=== PATIENT | female | born 1950 | race Caucasian/White ===

== ENCOUNTER 2022-05-05 13:20 | Emergency (ER) | payer MEDICARE, BC, SELFPAY ==
[2022-05-05 13:23] VITALS: BP 137/83; PULSE 88; RESP 18; TEMP 36; O2SAT 99; BMI 25.1
--- NOTE | 2022-05-05 13:45 | CRLHL7_ITS ---
For Patients: As a result of the Cures Act, medical imaging exams and procedure reports are released immediately into your electronic medical record. You may view this report before your referring provider. If you have questions, please contact your health care provider. Indication: Fell, right knee pain. Technique: Right knee 4 views. Comparison: None. Findings: No acute fracture or dislocation. The patella is normally aligned. Right total knee arthroplasty with patellar resurfacing. Hardware appears intact without radiographic evidence of loosening. No knee joint effusion. Soft tissues are unremarkable. Impression: 1. No acute findings. 2. Intact right TKA without evidence of hardware failure. Dictated by Michaela Velasco MD @ 05/05/2022 2:52:25 PM (Electronically Signed)
--- NOTE | 2022-05-05 13:46 | ED.GENADULT ---
HPI - General Adult General Chief complaint: Lower Extremity Swelling Stated complaint: Fall Repeat Knee Injury Time Seen by Provider: 05/05/22 13:41 History of Present Illness HPI narrative: This 71-year-old female comes in because of a fall that occurred just prior to arrival. She was carrying some items at a store and turned around a corner and did not see something on the floor which caused her to fall. She landed on her right knee which has been replaced in the past. She was protecting her left leg as she had a more recent hip replacement. She did not lose consciousness. She was able to get up and ambulate. Related Data Home Medications Medication Instructions Recorded Confirmed acetaminophen 500 mg tablet 1,000 mg PO PRN 04/26/22 04/26/22 amlodipine 2.5 mg tablet 2.5 mg PO DAILY 04/26/22 05/05/22 ascorbic acid (vitamin C) 1,000 mg 500 mg PO DAILY 04/26/22 05/05/22 tablet aspirin 81 mg tablet,delayed 81 mg PO DAILY 04/26/22 05/05/22 release cholecalciferol (vitamin D3) 25 1,000 unit PO DAILY 04/26/22 05/05/22 mcg (1,000 unit) tablet clopidogrel 75 mg tablet 75 mg PO DAILY 04/26/22 05/05/22 lqxtgm-vpyustdm-orvsmuw cap PO 04/26/22 04/26/22 36,000-114,000-180,000 unit capsule,delay rel multivitamin (Multiple Vitamins 1 tab PO QAM 04/26/22 05/05/22 tablet) omega 0-kfn-hdd-fish oil 100 cap PO 04/26/22 04/26/22 mg-160 mg-1,000 mg capsule (Fish Oil) pantoprazole 40 mg tablet,delayed mg PO DAILY 04/26/22 04/26/22 release rosuvastatin 10 mg tablet 10 mg PO DAILY 04/26/22 05/05/22 sennosides 8.6 mg tablet 4.3 mg PO PRN 04/26/22 04/26/22 sodium chloride 1,000 mg soluble 1 mg PO BID 04/26/22 04/26/22 tablet hydroxyurea 500 mg capsule 05/05/22 Allergies Allergy/AdvReac Type Severity Reaction Status Date / Time ciprofloxacin Allergy Intermediate Myalgia Verified 05/05/22 13:33 doxycycline Allergy Intermediate Headache Verified 05/05/22 13:33 hydromorphone Allergy Intermediate Slurred Verified 05/05/22 13:33 speech simvastatin Allergy Intermediate MYALGIA Verified 05/05/22 13:33 oxycodone Allergy Mild Unknown Verified 05/05/22 13:33 pilocarpine Allergy Mild HEART Verified 05/05/22 13:33 RACING, BLURRED VISION promethazine Allergy Mild Unknown Verified 05/05/22 13:33 propranolol Allergy Mild Unknown Verified 05/05/22 13:33 scopolamine Allergy Mild Unknown Verified 05/05/22 13:33 Beta Adrenergic Blockers Allergy Mild Unknown Uncoded 05/05/22 13:33 Review of Systems Status of ROS: Reports: 10 or more systems reviewed and unremarkable except as noted in History and below Narrative: Constitutional: No fevers, no weight gain or loss. Eyes: No discharge. No vision changes. HENT: No congestion, no sore throat, no ear pain. Cardiovascular: No chest pain, no palpitations. Respiratory: No shortness of breath, no wheezes, no cough. Gastrointestinal: No abdominal pain, no vomiting, no diarrhea. Genitourinary: No dysuria, no hematuria. Musculoskeletal: Normal range of motion. Mild tenderness over the right knee. Skin: No rashes, no pruritis. Neurological: No dizziness, weakness, sensory change, speech change. Endo/Heme/Allergies: No bruising or bleeding. No polydipsia. Pysch: no suicidality, no anxiety, no insomnia. All other systems reviewed and are negative. [facility] Medical History (Updated 05/05/22 @ 14:26 by Sundeep Stern MD) Ovarian cyst Surgical History (Updated 05/05/22 @ 13:35 by Shauna Madison RN) History of ERCP History of hysterectomy History of Whipple procedure Knee joint replacement status Status post total replacement of left hip Social History Smoking Status: Former smoker Do you use any of these nicotine containing products: None Second hand tobacco smoke exposure: No How often do you have a drink containing alcohol: never AUDIT-C Alcohol total score: 0 Non-prescribed substance use: denies use service: No Exam Narrative: Exam Narrative: Constitutional: Well-developed, well-nourished, no acute distress. HEENT: Normocephalic, atraumatic. Neck: Normal range of motion. Nontender. Supple. Heart: Intact distal pulses. Lungs: No chest discomfort. No wheezes, rhonchi, or rales. Abdomen: Nontender. Back: Normal range of motion. Extremities: Normal range of motion. Mild tenderness on the right knee. No sign of abrasion or laceration. There is no joint effusion or point tenderness when palpating around her knee joint. Skin: Intact. No rash. Warm. No erythema or pallor. Neurologic: No altered sensation. No weakness. Alert and oriented. Psychiatric: No suicidality. No anxiety or depression. No insomnia. Nursing notes and vitals signs are reviewed. Const: Vital Signs, click to edit/add: Vital Signs - 24 hr 05/05/22 13:23 Temperature 96.8 F L Pulse Rate [Right Pulse Oximeter] 88 Respiratory Rate 18 Blood Pressure [Ri ght Upper Arm] 137/83 Pulse Oximetry 99 Oxygen Delivery Me thod Room Air Course Vital Signs Vital signs: Initial Vital Signs Temperature 96.8 F L 05/05/22 13:23 Temperature Source Temporal Artery Scan 05/05/22 13:23 Pulse Rate 88 05/05/22 13:23 Respiratory Rate 18 05/05/22 13:23 Blood Pressure 137/83 05/05/22 13:23 Blood Pressure Mean 101 05/05/22 13:23 Blood Pressure Position Sitting 05/05/22 13:23 Pulse Oximetry 99 05/05/22 13:23 Oxygen Delivery Method 05/05/22 13:23 Vital Signs Temperature 96.8 F L 05/05/22 13:23 Pulse Rate 88 05/05/22 13:23 Respiratory Rate 18 05/05/22 13:23 Blood Pressure 137/83 05/05/22 13:23 Pulse Oximetry 99 05/05/22 13:23 Oxygen Delivery Method 05/05/22 13:23 Temperature 96.8 F L 05/05/22 13:23 Pulse Rate 88 05/05/22 13:23 Respiratory Rate 18 05/05/22 13:23 Blood Pressure 137/83 05/05/22 13:23 Pulse Oximetry 99 05/05/22 13:23 Oxygen Delivery Method 05/05/22 13:23 Medical Decision Making MDM Narrative Medical decision making narrative: This patient comes in for evaluation of her right knee when she fell on it prior to arrival. This was the knee that has been replaced in the past. She is ambulatory and does not have any significant complaints after the fall but is concerned that everything is okay in her knee joint. X-ray images by my review with radiology report pending show no sign of abnormality. She is okay to return home to continue current activities as tolerated. Imaging Data xr R knee: Attestation: I have reviewed the pertinent imaging results. My impression: No sign of fracture or dislocation. Hardware appears intact. Discharge Plan Discharge Clinical Impression: Fall Patient Disposition: Home, Self-Care Condition: Stable Additional Instructions: Increase activity as tolerated. Use tuub-zcn-uhxbkph medicines as needed and directed. Follow up with MD or return if worsening. Prescriptions: No Action clopidogrel 75 mg tablet 75 mg PO DAILY acetaminophen 500 mg tablet 1,000 mg PO PRN aspirin 81 mg tablet,delayed release (DR/EC) 81 mg PO DAILY sennosides 8.6 mg tablet 4.3 mg PO PRN Rx Instructions: Hold if experiencing loose stools. multivitamin [Multiple Vitamins] Tablet 1 tab PO QAM pantoprazole 40 mg tablet,delayed release (DR/EC) PO DAILY amlodipine 2.5 mg tablet 2.5 mg PO DAILY rosuvastatin 10 mg tablet 10 mg PO DAILY cholecalciferol (vitamin D3) 25 mcg (1,000 unit) tablet 1,000 unit PO DAILY Fish Oil 100-160-1,000 mg capsule PO ayjglh-imicnokc-ldxzycx 36,000-114,000- 180,000 unit capsule,delayed release(DR/EC) PO Rx Instructions: AND ONE CAPSULE WITH SNACKS, NOT TO EXCEED 9 CAPS PER DAY. sodium chloride 1,000 mg tablet,soluble 1 mg PO BID ascorbic acid (vitamin C) 1,000 mg tablet 500 mg PO DAILY hydroxyurea 500 mg capsule Label Comments: TAKE 1 CAPSULE BY MOUTH ON SUNDAY, SUNDAY, SUNDAY; AND THEN 2 CAPSULES ON ALL OTHER DAYS. Follow Up/Referrals: Gaby Collins MD [Primary Care Provider] - Stand Alone Forms: [employer] Info Instructions
== END 2022-05-05 14:36 | disposition home or self-care (01) ==
PROVIDERS: Emergency Provider Emergency Medicine Emergency Medical Services; PCP Family Medicine
DX: M25.561 Pain in right knee (principal)
CPT/HCPCS: 73564; 99283; 99284

== ENCOUNTER 2023-04-11 06:10 | Day surgery (SDC) | payer MEDICARE, BC, SELFPAY ==
[2023-04-11] MEDS: KETOROLAC OPHTH 0.5% 1 DROP EYE-LEFT ×2 (06:30→06:35)
[2023-04-11] MEDS: TETRACAINE 0.5% OPHTH 1 DROP EYE-LEFT ×2 (06:30→06:35)
[2023-04-11] MEDS: SODIUM CHLORIDE 0.9 % (FLUSH) 10 ML SYRINGE IVF (06:30)
[2023-04-11 06:44] VITALS: BP 154/80; PULSE 70; RESP 16; TEMP 36.6; O2SAT 98
[2023-04-11 06:47] VITALS: BMI 26.4
--- NOTE | 2023-04-11 06:53 | SUR.PREOP ---
The eye drops brought by the patient (Ketorolac and Prednisolone) are examined and I have determined they are labeled by the patient's pharmacy for this patient as prescribed by the surgeon. The bottles are intact, recently obtained and appear to be correct.
[2023-04-11] MEDS: TETRACAINE 0.5% OPHTH 2 DROP EYE-LEFT (07:14)
[2023-04-11] MEDS: BALANCED SALT IRRIG SOLN 15 ML EYE-LEFT (07:18)
--- NOTE | 2023-04-11 07:30 | P.ANES_ITS ---
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
[2023-04-11 07:39] VITALS: BP 153/78; PULSE 62; RESP 16; TEMP 36.3; O2SAT 98
--- NOTE | 2023-04-11 07:49 | W.ANESCHARGE ---
Anesthesia Charges Start Date/Time Anesthesia Start Date: 04/11/23 Anesthesia Start Time: 07:11 Stop Date/Time Anesthesia Stop Date: 04/11/23 Anesthesia Stop Time: 07:42 Summary Extremes of Age - Over 70 or under 1: MDA
--- NOTE | 2023-04-11 08:27 | W.PM.OPTPROC ---
Procedure Note Date of procedure: 04/11/23 Will [facility] bill your pro fee for this procedure?: Yes Procedure Description: SURGEON: Sophia Ramirez MD PREOPERATIVE DIAGNOSIS: Nuclear sclerotic cataract, left eye. POSTOPERATIVE DIAGNOSIS: Nuclear sclerotic cataract, left eye. NAME OF OPERATION: Phacoemulsification of cataract with posterior chamber intraocular lens implantation in the left eye. ANESTHESIA: Topical. ESTIMATED BLOOD LOSS: Less than 2 cc. COMPLICATIONS: None. PATHOLOGY SPECIMEN: None. INDICATIONS: See consult note for details. The risks, benefits and alternatives of the procedure were explained to the patient, who elected to proceed and signed informed consent to do so. PROCEDURE: The patient was brought to the pre-holding area where the left eye was identified as the operative eye. I placed my initials above this eye. The patient received eye drops consisting of 0.5% tetracaine, 1% tropicamide, 10% phenylephrine, and 0.5% ketorolac. The patient was then brought to the operating room where the left eye was again identified as the operative eye. The eye was prepped with Betadine and draped in the usual sterile ophthalmic fashion. A #15 super-sharp blade was used to create a paracentesis site. 1% non-preserved intracameral lidocaine was injected into the anterior chamber. Endocoat was injected into the anterior chamber. A 2.4 mm keratome was used to create a three-plane self-sealing incision 1 mm anterior to the temporal limbus. A cystotome was used to create an anterior capsular leaflet. The Utrata forceps were used to extend this to form a continuous curvilinear capsulorrhexis. Hydrodissection was performed. The cataract was removed with phacoemulsification using the hubsaj-quh-dcuscdm technique. The irrigation and aspiration tip was used to remove the remaining cortex. Healon was injected into the capsular bag. An MONCHO ZCB00 intraocular lens of 21.0 diopters was injected into the capsular bag. The irrigation and aspiration tip was used to remove the remaining viscoelastic. Balanced salt solution on a cannula was used to hydrate the wound, and the wound was found to be watertight. The pupil was noted to be round. DISPOSITION: The patient was taken to the recovery room and discharged to home in stable condition. The patient was instructed to call me or go to the emergency department with any sudden change, including dramatic loss of vision, severe pain in the eye or eyebrow region, nausea, or vomiting. The patient will follow up in the clinic tomorrow morning.
== END 2023-04-11 08:20 | disposition home or self-care (01) ==
PROVIDERS: PCP Family Medicine; Visit Provider Ophthalmology
PROC: (CPT 66984; principal; 2023-04-11 06:15)
DX: H25.12 Age-related nuclear cataract, left eye (principal)
CPT/HCPCS: 66984; 00142; 99100; A9270; J2250; J3010; V2632

== ENCOUNTER 2023-04-25 06:05 | Day surgery (SDC) | payer MEDICARE, BC, SELFPAY ==
[2023-04-25] MEDS: TETRACAINE 0.5% OPHTH 1 DROP EYE-RIGHT ×2 (06:37→06:44)
[2023-04-25] MEDS: KETOROLAC OPHTH 0.5% 1 DROP EYE-RIGHT ×2 (06:42→06:51)
[2023-04-25] MEDS: SODIUM CHLORIDE 0.9 % (FLUSH) 10 ML SYRINGE IVF (06:53)
[2023-04-25 06:55] VITALS: BP 146/72; PULSE 66; RESP 16; TEMP 36.3; O2SAT 97; BMI 26.6
[2023-04-25] MEDS: TETRACAINE 0.5% OPHTH 2 DROP EYE-RIGHT (07:18)
[2023-04-25] MEDS: BALANCED SALT IRRIG SOLN 15 ML EYE-RIGHT (07:21)
--- NOTE | 2023-04-25 07:27 | W.ANESCHARGE ---
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
[2023-04-25 07:41] VITALS: BP 141/83; PULSE 62; RESP 16; TEMP 36.2; O2SAT 95
[2023-04-25 07:45] VITALS: BP 151/82; PULSE 65; RESP 16; O2SAT 96
--- NOTE | 2023-04-25 08:31 | P.OPTPRC_ITS ---
Procedure Note Date of procedure: 04/25/23 Will [facility] bill your pro fee for this procedure?: Yes Procedure Description: SURGEON: Sophia Ramirez MD PREOPERATIVE DIAGNOSIS: Nuclear sclerotic cataract, right eye. POSTOPERATIVE DIAGNOSIS: Nuclear sclerotic cataract, right eye. NAME OF OPERATION: Phacoemulsification of cataract with posterior chamber intraocular lens implantation in the right eye. ANESTHESIA: Topical. ESTIMATED BLOOD LOSS: Less than 2 cc. COMPLICATIONS: None. PATHOLOGY SPECIMEN: None. INDICATIONS: See consult note for details. The risks, benefits and alternatives of the procedure were explained to the patient, who elected to proceed and s igned informed consent to do so. PROCEDURE: The patient was brought to the pre-holding area where the right eye was identified as the operative eye. I placed my initials above this eye. The patient received eye drops consisting of 0.5% tetracaine, 1% tropicamide, 10% phenylephrine, and 0.5% ketorolac. The patient was then brought to the operating room where the right eye was again identified as the operative eye. The eye was prepped with Betadine and draped in the usual sterile ophthalmic fashion. A #15 super-sharp blade was used to create a paracentesis site. 1% non-preserved intracameral lidocaine was injected into the anterior chamber. Endocoat was injected into the anterior chamber. A 2.4 mm keratome was used to create a three-plane self-sealing incision 1 mm anterior to the temporal limbus. A cystotome was used to create an anterior capsular leaflet. The Utrata forceps were used to extend this to form a continuous curvilinear capsulorrhexis. Hydrodissection was performed. The cataract was removed with phacoemulsification using the loaghy-pvt-acfvoin technique. The irrigation and aspiration tip was used to remove the remaining cortex. Healon was injected into the capsular bag. An MONCHO ZCB00 intraocular lens of 21.5 diopters was injected into the capsular bag. The irrigation and aspiration tip was used to remove the remaining viscoelastic. Balanced salt solution on a cannula was used to hydrate the wound, and the wound was found to be watertight. The pupil was noted to be round. DISPOSITION: The patient was taken to the recovery room and discharged to home in stable condition. The patient was instructed to call me or go to the emergency department with any sudden change, including dramatic loss of vision, severe pain in the eye or eyebrow region, nausea, or vomiting. The patient will follow up in the clinic tomorrow morning.
--- NOTE | 2023-04-25 09:44 | W.ANESCHARGE ---
Anesthesia Charges Start Date/Time Anesthesia Start Date: 04/25/23 Anesthesia Start Time: 07:12 Stop Date/Time Anesthesia Stop Date: 04/25/23 Anesthesia Stop Time: 07:44 Summary Extremes of Age - Over 70 or under 1: MDA
== END 2023-04-25 08:20 | disposition home or self-care (01) ==
PROVIDERS: PCP Family Medicine; Visit Provider Ophthalmology
PROC: (CPT 66984; principal; 2023-04-25 06:15)
DX: H25.11 Age-related nuclear cataract, right eye (principal)
CPT/HCPCS: 66984; 00142; 99100; A9270; J2250; J3010; V2632

== ENCOUNTER 2024-07-03 12:14 | Emergency (ER) | payer MEDICARE, BC, SELFPAY ==
[2024-07-03 12:31] VITALS: BP 145/77; PULSE 68; RESP 16; TEMP 36.6; O2SAT 99; BMI 25.8
--- OUTSIDE RECORDS SUMMARY | 2024-07-03 12:54 | XMS_ITS | Clinical Summary ---
Author Organization [facility] Address [address] [place] [id number] Care Team Providers Care Sonar Watchstander Name Role Phone DennisGaby Primary Care Provider [phone] Allergies Active Allergy Reactions Criticality Noted Date Comments Beta Adrenergic Blockers Other (See Comments) 08/01/2004 Rapid heart rate Ciprofloxacin Other (See Comments) 05/13/2015 extreme ligament & joint pain Hydromorphone Other (See Comments) 06/02/2015 Slurred speach Parasympathomimetics Other (See Comments) 08/01/2004 Saligen caused rapid heart rate Pilocarpine Other (See Comments) 06/01/2015 Tachycardia Propranolol Other (See Comments) 06/01/2015 Tachycardia Scopolamine Other (See Comments) 06/01/2015 When given in combination with phenergan and percocet patient experienced neurological symptoms Simvastatin Other (See Comments) 06/01/2015 Myalgia Medications Medication Sig Dispensed Refills Start Date End Date Status CALCIUM 500 SUPPLEMENT 1250 MG OR CHEW 0 08/01/2004 Active GLUCOSAMINE SULFATE PO Take 1,000 mg by mouth daily Active calcium carbonate (TUMS) 500 MG chewable tablet Take 1 chew tab by mouth daily as needed for heartburn Active Multiple Vitamins-Minerals (MULTIVITAMIN & MINERAL PO) Take 1 tablet by mouth daily Active famotidine (PEPCID) 20 MG tablet Take 20 mg by mouth 10/24/2016 Act alexandre minocycline (MINOCIN/DYNACIN) 50 MG capsule Take 50 mg by mouth 05/13/2019 Activ e LORazepam (ATIVAN) 0.5 MG tablet Take 0.5 mg by mouth 04/19/2018 Active fish oil-omega-3 fatty acids 1000 MG capsule Take 2 g by mouth daily Active Acetaminophen 325 MG CAPS Take 325-650 mg by mouth every 4 hours as needed Active Naproxen Sodium (ALEVE PO) Active Active Problems Problem Noted Date Diagnosed Date S/P total knee arthroplasty 06/01/2015 Immunizations Name Administration Dates Next Due TD,PF 7+ (Tenivac) 09/08/1999 Family History Medical History Relation Comments Arthritis Brother Leukemia Father Diabetes Mother Skin Cancer Sister Relation Status Comments Brother Father Mother Sister Social History Tobacco Use Types Packs/Day Years Used Date Smoking Tobacco: Former Cigarettes Smokeless Tobacco: Never Comments:quit in 1967 Alcohol Use Standard Drinks/Week Comments Yes 0 (1 standard drink = 0.6 oz pur e alcohol) Very rarely Adolescent Education Answer Date Record ed Getting School Help Needed Not on file 07/24 Sex and Gender Information Value Date Recorded Sex Assigned at Not on file Gender Identity Not on file Sexual Orientation Not on file Last Filed Vital Signs Vital Sign Reading Time Taken Comments Blood Pressure 134/66 05/20/2019 10:30 AM CDT Pulse 60 05/20/2019 10:30 AM CDT Temperature 36.6 ??C (97.8 ??F) 06/04/2015 8:12 AM CD T Respiratory Rate 15 05/20/2019 10:30 AM CDT Oxygen Saturation 100% 05/20/2019 10:30 AM CDT Inhaled Oxygen Concentration - - Weight 76.2 kg (168 lb) 05/20/2019 8:00 AM CDT Height 158.8 cm (5' 2.5) 05/20/2019 8:00 AM CDT Body Mass Index 30.24 05/20/2019 8:00 AM CDT Plan of Treatment Not on file Medical Devices Implanted Type Area Contour Path Tape Mill Operator Device Identifier Shelf Expiration Date Model / Serial / Lot Bone Cement Simplex Full Dose [id number] Implanted:Qty: 2 on 06/01/2015 by Perfecto Dailey MD at [facility] Right: Knee [employer] 01/23/2017 [id number] / / [id number] Imp Baseplate Tibial Howm Tri 3 [id number] Implanted:Qty: 1 on 06/01/2015 by Perfecto Dailey MD at [facility] Right: Knee [employer] 11/25/2019 5520-B-[id number] / / [id number] Imp Comp Fem Strk Triathln Cr Rt 4 [id number] Implanted:Qty: 1 on 06/01/2015 by Perfecto Dailey MD at [facility] Right: Knee [employer] 03/25/2020 5510-F-[id number] / / [id number] Imp Comp Patella Tri X3 Ps 31x9mm Implanted:Qty: 1 on 06/01/2015 by Perfecto Dailey MD at [facility] Right: Knee [employer] 01/24/2020 5550-G-[id number] / / [id number] Imp Insert Tibial Howm Tri 3x11mm 5530-G-[id number] Implanted:Qty: 1 on 06/01/2015 by Perfecto Dailey MD at [facility] Right: Knee [employer] 03/25/2020 5530-G-[id number] / / [id number] Advance Directives For more information, please contact: [phone] * Full Code (Latest Code Status on File) Date Activated Date Inactivated Comments 06/03/2015 5:00 PM 05/20/2019 7:33 AM * Full Code Date Activated Date Inactivated Comments 06/01/2015 12:47 PM 06/03/2015 5:00 PM * No Code Status Date Activated Date Inactivated Comments 07/29/2004 2:53 PM 07/29/2004 2:53 PM Care Teams Sonar Watchstander Relationship Specialty Start Date End Date Gaby Collins PCP - General Family Practice 08/11/13
--- OUTSIDE RECORDS SUMMARY | 2024-07-03 12:55 | XMS_ITS | Clinical Summary ---
Author Organization [facility] Address [place], [place] [address] Care Team Providers Care Washer Off Name Role Phone Gaby Collins MD Primary Care Provide r Lenny Hernandez MD Unavailable [phone] Vonnie Barragan MD Unavailable Unavailable David Jorgensen MD Unavailable [phone] Parisa Phillips MD Unavailable Lizzette Batista BOROUGH COORDINATOR Unavailable Mirtha Petty NP Unavailable [phone] Allergies Active Allergy Reactions Criticality Noted Date Comments Beta-Blockers (Beta-Adrenergic Blocking Agts) Other - Describe In Comment Field Low 05/05/2022 Upset stomach Ciprofloxacin Myalgia High 07/22/2013 Doxycycline Headache High 12/23/2015 Severe head pressure Cyclobenzaprine Dizziness 09/27/2023 Hydromorphone Other - Describe In Comment Field High 06/02/2015 Slurred speach Other reaction(s): slurred speech Propranolol Tachycardia 09/22/2005 Oxycodone Hcl Nausea And Vomiting 10/15/2023 Oxycodone-Acetaminophen Nausea And Vomiting 11/2018 severe Promethazine Other - Describe In Comment Field Low 01/25/2021 nausea and shaking [place] Tachycardia 09/22/2005 Scopolamine 10/12/2009 When given in combination with phenergan and percocet patient experienced neurological symptoms Simvastatin Myalgia High 08/12/2010 Other reaction(s): MYALGIA Sulfamethizole Arthralgia 10/15/2023 Medications Medication Sig Dispensed Refills Start Date End Date Status nzshr-2-JDS-EPA-fi sh oil (FISH OIL) 300-1,000 mg capsule Take 1 Capsule by mouth once daily. 0 0 Active cholecalciferol (VITAMIN D3) 1,000 unit tablet Take 1,000 Units by mouth once daily. 0 0 Active mv-min/iron/folic/ calcium/vitK (WOMEN'S MULTIVITAMIN ORAL) Take 1 Tablet by mouth once daily. Active ascorbic acid, vitamin C, (VITAMIN C) 1,000 mg tablet Take 1,000 mg by mouth once daily. Active calcium carb and citrat-mag ox (CALMAG THINS) 200 mg calcium- 50 mg tab Take 1 Tablet by mouth once daily. Uses Calm for bowels Active aspirin (ECOTRIN) 81 mg enteric coated tablet Take 81 mg by mouth at bedtime. 0 1 Active acetaminophen (TYLENOL EXTRA STRGTH) 500 mg tabletIndications: Ventral hernia without obstruction or gangrene Take 2 Tablets (1,000 mg) by mouth every 6 hours if needed (pain). Max acetaminophen dose: 4000mg in 24 hrs. Use over the counter supply 0 1 Active polyethylene glycoL (Miralax) 17 gram/dose powder Mix 1 scoop (17 g) in liquid then take by mouth once daily if needed for Constipation. 0 2 Active Magnesium Citrate powd As directed 325 mg once daily if needed. 0 2 Active amoxicillin (AMOXIL) 500 mg capsule Take 4 capsules (2000mg) 1 hour prior to dental appointment 2 Active sodium chloride 1,000 mg soluble tabletIndications: Hyponatremia Take 1 Tablet (1 g) by mouth once daily. 90 Tablet 3 3 Active rosuvastatin (CRESTOR) 5 mg tabletIndications: Ischemic embolic stroke (HC) Take 1 Tablet (5 mg) by mouth at bedtime. 90 Tablet 3 4 Active npdzjh-sxboclqg-vq ylase (Creon) 36,000-114,000- 180,000 unit capsuleIndications :Pancreatic insufficiency take 2 capsules by mouth three times daily before meals and 1 capsule with snacks. do not exceed 9 capsules daily. 810 Capsule 3 4 Active hydroxyurea (HYDREA) 500 mg capsuleIndications :Thrombocythemia TAKE 1 CAPSULE BY MOUTH ON SUNDAY, SUNDAY, SUNDAY; AND THEN 2 CAPSULES ON ALL OTHER DAYS. 180 Capsule 3 4 Active clopidogreL (PLAVIX) 75 mg tabletIndications: Cerebrovascular accident (CVA), unspecified mechanism (HC) Take 1 Tablet (75 mg) by mouth every morning. 90 Tablet 3 4 Active amLODIPine (NORVASC) 2.5 mg tabletIndications: HTN (hypertension) Take 1 Tablet (2.5 mg) by mouth once daily. 90 Tablet 3 4 Active pantoprazole (PROTONIX) 40 mg delayed-release tabletIndications: Pancreatic cyst TAKE ONE TABLET BY MOUTH ONE TIME DAILY BEFORE A MEAL. 90 Tablet 2 4 Active nitrofurantoin macrocrystals/mono hydrate (MACROBID) 100 mg capsuleIndications :UTI (urinary tract infection), uncomplicated Take 1 Capsule (100 mg) by mouth two times daily for 5 days. 10 Capsule 4 07/05/20 24 Active amoxicillin-clavul anate 875-125 mg tablet (AUGMENTIN)Indicat ions:Ascending cholangitis Take 1 Tablet by mouth two times daily with meals. 20 Tablet 3 4 06/26/20 24 Discontinue d(*Med complete/Re gimen complete/Le jani of care change) cephalexin (KEFLEX) 500 mg capsuleIndications :Dysuria Take 1 Capsule (500 mg) by mouth three times daily for 5 days. 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, hematopoietic and related tissue 09/28/2023 Bacteremia due to Klebsiella pneumoniae 09/24/20 23 Acute obstructive cholangitis 09/22/2023 Essential (hemorrhagic) thrombocythemia 09/26/20 22 S/P total left hip arthroplasty 03/30/2022 H/O Whipple procedure 07/05/2021 Thrombocythemia 06/11/2020 Overview (06/11/2020): Component Latest Ref Rng & Units 02/26/2020 04/27/2020 04/28/2020 05/14/2020 PLATELET COUNT 140 - 440 thou/cu mm 553 (H) 673 (H) 566 (H) 669 (H) Component Latest Ref Rng & Units 05/15/2020 PLATELET COUNT 140 - 440 thou/cu mm 510 (H) Leukocytosis 05/14/2020 Postoperative biliary stricture 04/29/2020 Hyponatremia 04/27/2020 Ventral hernia without obstruction or gangrene 0 02/26/2020 Sepsis 12/02/2019 Biliary stricture 12/02/2019 Pulmonary nodules 11/28/2019 IPMN (intraductal papillary mucinous neoplasm), s/p Whipple 07/25/2019 Overview (11/28/2019): low grade dysplasia on pathology Mucinous cystadenoma of head of pancreas 018 Gastroesophageal reflux disease with esophagitis 10/12/2016 Overview (10/12/2016): EGD 10/2015 reflux esophagitis S/P total knee arthroplasty 06/01/2015 IPMN (intraductal papillary mucinous neoplasm) - low grade dysplasia 07/28/2014 Atrophic vaginitis 07/22/2013 Adenomatous colon polyp 08/29/2012 Overview (05/14/2019): Colonoscopy 08/2012 polyp repeat in 5 years Colonoscopy 05/2019 polyp, repeat in 5 years Mixed hyperlipidemia 03/02/2011 Vitamin D deficiency 06/03/2010 Overview (06/03/2010): mild Chest pain, unspecified 06/01/2009 Rosacea 02/04/2008 Osteoarthrosis, unspecified whether generalized or localized, unspecified site 02/04/2008 Unspecified constipation 02/04/2008 Resolved Problems Problem Noted Date Diagnosed Date Resolved Date Nausea & vomiting 05/14/2020 10/13/2020 Acute obstructive cholangitis 04/27/2020 03/17/2024 Leukocytosis 04/27/2020 10/13/2020 Concern for Ascending Cholangitis 12/02/2019 10/13/2020 Perimenopausal disorder 06/01/2009 09/0 11/2009 Acute postoperative pain Encounters Date Type Department Care Team Description 07/02/2024 Telephone [facility] [address] [facility] [place] [address] Gaby Collins MD UTI 06/30/2024 Telephone [facility] [address] [place] [address] Gaby Collins MD Questions 06/30/2024 Telephone [facility] [address] [place] [address] Vishal Rivers MD Questions 06/26/2024 4:35 PM CDT Office Visit [facility] [address] [place] [address] Vishal Rivers MD Urinary Problem (Burning, pressure, frequency, low grade temperature, x 3 days) 06/26/2024 Travel 05/22/2024 1:00 PM CDT Office Visit [facility] [address] [place] [address] Parisa Phillips MD Follow Up (Thrombocythemia//) 05/22/2024 Travel 05/19/2024 7:30 AM CDT Orders Only [facility] [address] [place] [address] Lab, [place] Lab 05/19/2024 Travel 05/09/2024 Orders Only [facility] [address] [place] [address] Nash Huber MD <No scans attached> 04/28/2024 7:24 AM CDT - 04/28/2024 11:59 PM CDT Hospital Encounter [facility] [address] [facility] [place] [address] Persons encountering health services in other specified circumstances 04/28/2024 7:23 AM CDT Hospital Encounter [facility] [address] [facility] [place] [address] Gaby Collins MD Bile duct stricture; Cholangitis; H/O Whipple procedure; Acquired absence of other specified parts of digestive tract; Pancreas cyst 04/28/2024 Travel 04/23/2024 Telephone [facility] [address] [place] [address] Lizzette Batista, BOROUGH COORDINATOR Appointment 04/18/2024 Orders Only [facility] [address] [place] [address] Kimani Ortiz MBBS Lab from Last 3 Months Immunizations Name Administration Dates Next Due COVID-19 VACCINE SPIKEVAX (M ODERNA 50MCG/0.5ML) 12YO+ PFS 12/18/2023 COVID-19 vaccine (Moderna 100mcg/0.5mL) PF, MDV 12/17/2020,12/17/2020,11/19/2020 COVID-19 vaccine (Pfizer-Bio NTech 30mcg/0.3mL) 12YO+ BIVALENT PF, MDV 09/26/2022 Influenza A (H1N1), Inactivated 09/13/2009 Influenza RIV4 (Age 18+ Year s) PRESERV FREE 07/02/2019 Influenza, High-dose Inactivated 024,07/02/2019,10/27/2018,09/22,08/25/2016,07/01/2016 Influenza, High-dose Quadriv alent Inactivated 08/27/2023,07/05/2022,07/21/2021,07/02 Influenza, IIV3 (Age 6-35 mos) 06/02/2010 Influenza, IIV3 (Age >=3 years) 07/22/2013,06/19,06/02/2010 Influenza, IIV4 07/02/2020,09/13/2009 Pneumococcal Poly,23-Valent (Pneumovax) 12/09/2013 Pneumococcal conj 13-Valent (Prevnar 13) 09/26/2016 RSV, Recombinant ADJ Reconst ituted (Arexvy 120MCG/0.5mL) 08/27/2023 Td (Age >=7 Years) 09/28/2005 Td, Preservative Free (age >= 7 Years) 5,09/08/1999 Tdap 11/05/2017,10/01/2012 Zoster (Shingrix-RZV, recombinant) 04/23/2021, Zoster (Zostavax-ZVL, live) 09/29/2012 Family History Medical History Relation Name Comments Hypertension Brother 1 Diabetes Brother 2 Leukemia Father Diabetes Mother age 65 Arthritis Other osteoarthritis Other Sister memory loss, la te 60's Cancer-breast No Family History Cancer-ovarian No Family History Relation Name Status Comments Brother 1 Brother 2 Father (Age 66) Leukemia Mother (Age 77) T2DM, Chur ge-Ashanti Syndrome Other Sister Social History Tobacco Use Types Packs/Day Years Used Date Smoking Tobacco: Former Cigarettes 0.3 3 0 05/25/1965 - 05/25/1968 Passive Smoke Exposure: Past Smokeless Tobacco: Never Tobacco Cessation:Counseling Given: Yes Comments:smoked for awhile in college Alcohol Use Standard Drinks/Week Comments Not Currently 0 (1 standard drink = 0.6 oz pur e alcohol) none PHQ-2 Answer Date Recorded PHQ-2 TOTAL SCORE 0 09/27/2023 Social Connections Answer Date Recorded Frequency of Communication with Friends and Fami ly 0 04/05/2023 Financial Resource Strain Answer Date R ecorded Difficulty of Paying Living Expenses 3 04/05/2023 Difficulty of Paying Living Expenses Not on file 04/05/2023 Food Insecurity Answer Date Recorded Worried About Running Out of Food in the Last Ye ar 1 04/05/2023 Transportation Needs Answer Date Record ed Lack of Transportation (Medical) 1 04/05/2023 Housing Stability Answer Date Recorded Unable to Pay for Housing in the Last Year 1 04/05/2023 Sex and Gender Information Value Date Recorded Sex Assigned at Not on file Gender Identity Not on file Sexual Orientation Not on file Obstetrics History Para Term AB IAB SAB Ectopic Multiple Livin g Live Births 2 2 1 1 2 Date Outcome GA Total Labor Labor/2nd/3rd Weight Sex Type Anes PTL Lauren A1 A5 Name Clin Term Last Filed Vital Signs Vital Sign Reading Time Taken Comments Blood Pressure 144/72 06/26/2024 4:38 PM CDT Pulse 70 06/26/2024 4:38 PM CDT Temperature 36.7 ??C (98 ??F) 06/26/2024 4:38 PM CDT Respiratory Rate 14 05/22/2024 12:56 PM CDT Oxygen Saturation 96% 06/26/2024 4:38 PM CDT Inhaled Oxygen Concentration - - Weight 66.8 kg (147 lb 3.2 oz) 06/26/2024 4:38 P M CDT Height 158.8 cm (5' 2.5) 06/26/2024 4:38 PM CDT Body Mass Index 26.49 06/26/2024 4:38 PM CDT Plan of Treatment Upcoming Encounters Date Type Department Care Team (Late st Contact Info) Description 09/15/2024 7:00 AM ASIC DESIGN ENGINEER Orders Only [facility] [address] [place] [address] Lab, [place] 09/16/2024 10:15 AM ASIC DESIGN ENGINEER Office Visit [facility] [address] [place] [address] Lizzette Batista, BOROUGH COORDINATOR [address] [place] [address] 10/27/2024 9:00 AM ASIC DESIGN ENGINEER Appointment [facility] [address] [place] [address] 11/03/2024 9:00 AM ASIC DESIGN ENGINEER Office Visit [facility] [address] [place] [address] Lenny Hernandez MD [address] [facility] [address] [place] [address] Health Maintenance Due Date Last Done Comments Medicare Wellness for age 65+ 09/27/2023, 09/26/2016, 07/28/2014 Colonoscopy through age 75 05/06/202405/06, 05/06/2019, 08/27/2012, Additional history exists COVID-19 vaccine series ( season) 2024 06/19/2024, 12/18/2023, 09/26/2022, Additional history exists Depression screening for age 12+ 09/27/2024 09/27/2023, 09/26/2022, 10/13/2021, Additional history exists BMI (ht and wt on same day) for age 18+ 06/26/2025 06/26/2024, 02/04/2024, 12/18/2023, Additional history exists Lipids for age 45-75 08/30/2027 08/30/2022, 09/27/2016, 12/09/2013, Additional history exists Tetanus booster 11/05/2027 11/05/2017, 10/2012, 09/28/2005, Additional history exists Pneumococcal series for age 65+ Completed 6, 12/09/2013 Tdap Completed 11/05/2017, 10/01/2012 Hepatitis C screening for ag e 18-79 Completed 02/19/2020 Zoster (shingles) series for age 50+ Completed 04/23/2021, 01/26/2021, 09/29/2012 DEXA/DXA scan for age 65+ Completed 2021, 09/28/2016, 06/02/2010 RSV vaccine for adults or Completed 08/27/2023 Influenza for age 65+ Completed 06/19/2024 , 08/27/2023, 07/05/2022, Additional history exists Goals Goal Patient Goal Type Associated Problems Recent Progress Patient-Stated? Author BLOOD PRESSURE - Maintains BP less than 140/90 Blood Pressure No Ally Lloyd LPN Medical Devices Implanted Type Area [employer]iner Device Identifier Shelf Expiration Date Model / Serial / Lot Mesh Ventral 4x6in Ventralightst - [id number] Implanted:Qty: 1 on 02/25/2020 by Lenny Hernandez MD at [facility] Abdomen [employer] 09/27/2021 [id number] / / [id number] Stent Biliary [id number] Viabil No Hole - [id number] Implanted:Qty: 1 on 04/28/2020 by David Jorgensen MD at [facility] [employer] [id number] / / [id number] Mesh Ventral 4x6in Ventralight St - [id number] Implanted:Qty: 1 on 05/27/2021 by Lenny Hernandez MD at [facility] [employer] 03/28/2022 [id number] / / [id number] Stent Biliary [id number] Viabil No Hole - [id number] Implanted:Qty: 1 on 07/08/2021 by David Jorgensen MD at [facility] [employer] 01/31/2024 [id number] / [id number] / [id number] Stent Biliary [id number] Viabil No Sylvain - [id number] Implanted:Qty: 1 on 08/30/2021 by David Jorgensen MD at [facility] [employer] 11/30/2023 [id number] / / [id number] Procedures Procedure Name Priority Date/Time Associated Diagnosis Comments URINE CULTURE Routine 06/26/2024 5:08 PM CDT Dysuria URINALYSIS MACROSCOPIC - [facility] ONLY POC DIP (QUEST) Routine 06/26/2024 4:35 PM CDT Dysuria CBC WITH AUTO DIFFERENTIAL Routine 05/19/2024 7:27 AM CDT Thrombocythemia HEPATIC FUNCTION PANEL Routine 05/19/2024 7:27 AM CDT Thrombocythemia CBC WITH AUTO DIFFERENTIAL Routine 05/19/2024 7:27 AM CDT Thrombocythemia BASIC METABOLIC PANEL Routine 05/19/2024 7:27 AM CDT Thrombocythemia VITAMIN D 25 (DEFICIENCY) Today 04/28/2024 9:36 AM CDT Persons encountering health services in other specified circumstances VITAMIN E Today 04/28/2024 9:36 AM CDT Persons encountering health services in other specified circumstances VITAMIN A BLOOD Today 04/28/2024 9:36 AM CDT Persons encountering health services in other specified circumstances HEPATIC FUNCTION PANEL Today 04/28/2024 9:36 AM CDT Persons encountering health services in other specified circumstances MR ABDOMEN MRCP PANCREAS WWO Routine 04/28/2024 9:29 AM CDT Bile duct stricture Cholangitis H/O Whipple procedure Acquired absence of other specified parts of digestive tract Pancreas cyst LIPID PANEL W REFLEX MEASURED LDL Routine 08/30/2022 11:20 AM ASIC DESIGN ENGINEER Hyperlipidemia, unspecified hyperlipidemia type XR DXA BONE DENSITY 2 SITES AXIAL Routine 05/08/2022 8:38 AM CDT Menopause ANTI HCV Routine 02/19/2020 9:00 AM CDT Encounter for hepatitis C screening test for low risk patient COLONOSCOPY 05/06/2019 11:11 AM CDT from Last 3 Months or Most Recently Relevant to Health Maintenance Results * (ABNORMAL) URINE CULTURE (06/26/2024 5:08 PM CDT) CULTURE, URINE, ROUTINE SEE NOTE(A) [employer] Mcneill Comment: ??CULTURE, URINE, ROUTINE ?Micro Number: ?[id number] ??Test Status: ? Final ??Specimen Source: ?? Urine, clean catch ??Specimen Quality: ??Adequate ??Result: ?Greater than 100,000 CFU/mL of ? Enterobacter cloacae complex (CRE) ? 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 ?E.cloacae (CRE) ?INT ?? MEÑO ?? AMOX/CLAVULANATE ? R ? >=32 ?? CEFAZOLIN ?R ? >=64 ?? CEFEPIME ? I ? 8 ?? CEFTAZIDIME ?R ? >=64 ?? CEFUROXIME, AXETIL ? R ? >=64 ?? CEFUROXIME, SODIUM ? R ? >=64 ?? GENTAMICIN ? S ? <=1 ?? LEVOFLOXACIN ? S ? 0.5 ?? MEROPENEM ?R ? 4 1 ?? NITROFURANTOIN ? R ? 128 ?? PIP/TAZOBACTAM ? R ? >=128 ?? TOBRAMYCIN ? S ? <=1 ?? TRIMETHOPRIM/SULFA ? S ? <=20 S = Susceptible ??I = Intermediate ??R = Resistant ??NS = Not susceptible SDD = Susceptible Dose Dependent ??* = Not Tested ??NR = Not Reported NN = See Therapy Comments THERAPY COMMENTS ?Note 1: ?This organism demonstrates carbapenem resistance. Urine URINE SPECIMEN / Unknown 06/26/2024 5:08 PM CDT 06/26/2024 5:08 PM CDT Vishal Rivers MD MICROBIOLOGY yet[facility] [address] [place] [address], [facility] [address] [place] [address] * (ABNORMAL) POCT Urinalysis Dipstick Only (06/26/2024 4:35 PM CDT) PH 5.5 5.0 - 8.0 [facility] SPECIFIC GRAVITY 1.020 1.001 - 1.035 [facility] GLUCOSE NEGATIVE NEGATIVE [facility] BILIRUBIN NEGATIVE NEGATIVE [facility] KETONES TRACE(A) NEGATIVE [facility] OCCULT BLOOD NEGATIVE NEGATIVE [facility] PROTEIN NEGATIVE NEGATIVE [facility] NITRITE POSITIVE(A) NEGATIVE [facility] LEUKOCYTE ESTERASE 1+(A) NEGATIVE [facility] Urine URINE SPECIMEN / Unknown 06/26/2024 4:35 PM CDT 06/26/2024 4:35 PM CDT Vishal Rivers MD URINE Performing Organization Address City/State/[facility] Co de Phone Number [facility] [address] [place], [place] [address] [phone] [facility] [address] [place] [address] * (ABNORMAL) CBC WITH AUTO DIFFERENTIAL (05/19/2024 7:27 AM CDT) Pathologist [facility] WHITE BLOOD COUNT 5.2 4.5 - 11.0 thou/cu mm 05/19/2024 7:31 AM CDT [facility] RED BLOOD COUNT 3.62(L) 4.00 - 5.20 mil/cu mm 05/19/2024 7:31 AM CDT [facility] HEMOGLOBIN 12.8 12.0 - 16.0 g/dL 05/19/2024 7:31 AM CDT [facility] HEMATOCRIT 37.4 33.0 - 51.0 % 05/19/2024 7:31 AM CDT [facility] MCV 103(H) 80 - 100 fL 05/19/2024 7:31 AM CDT [facility] MCH 35.4(H) 26.0 - 34.0 pg 05/19/2024 7:31 AM CDT [facility] MCHC 34.2 32.0 - 36.0 g/dL 05/19/2024 7:31 AM CDT [facility] RDW 13.4 11.5 - 15.5 % 05/19/2024 7:31 AM CDT [facility] PLATELET COUNT 433 140 - 440 thou/cu mm 05/19/2024 7:31 AM CDT [facility] MPV 8.7 6.5 - 11.0 fL 05/19/2024 7:31 AM CDT [facility] % NEUT 66.4 % 05/19/2024 7:31 AM CDT [facility] % LYMPH 21.6 % 05/19/2024 7:31 AM CDT [facility] % MONO 9.5 % 05/19/2024 7:31 AM CDT [facility] % EOS 1.7 % 05/19/2024 7:31 AM CDT [facility] % BASO 0.8 % 05/19/2024 7:31 AM CDT [facility] ABSOLUTE NEUTROPHILS 3.5 1.7 - 7.0 thou/cu mm 05/19/2024 7:31 AM CDT [facility] ABSOLUTE LYMPHOCYTES 1.1 0.9 - 2.9 thou/cu mm 05/19/2024 7:31 AM CDT [facility] ABSOLUTE MONOCYTES 0.5 <0.9 thou/cu mm 05/19/2024 7:31 AM CDT [facility] ABSOLUTE EOSINOPHILS 0.1 <0.5 thou/cu mm 05/19/2024 7:31 AM CDT [facility] ABSOLUTE BASOPHILS 0.0 <0.3 thou/cu mm 05/19/2024 7:31 AM CDT [facility] Blood BLOOD SPECIMEN / Unknown Venipuncture / Unknown 05/19/2024 7:27 AM CDT 05/19/2024 7:27 AM CDT Narrative [facility] - 05/19/2024 7:31 AM CDT This procedure was originally ordered at [facility]. Lizzette Batista NP HEMATOLOGY [facility] [address] [place] [address], [place] [phone] * (ABNORMAL) HEPATIC FUNCTION PANEL (05/19/2024 7:27 AM CDT) Only the most recent of2 resultswithin the time period is included. ALBUMIN 4.0 4.0 - 4.9 g/dL 05/19/2024 1:52 PM CDT [facility] PROTEIN,TOTAL 6.8 6.0 - 8.0 g/dL 05/19/2024 1:52 PM CDT [facility] BILIRUBIN,TOTAL 0.3 0.0 - 1.2 mg/dL 05/19/2024 1:52 PM CDT [facility] BILIRUBIN,DIRECT 0.2 0.0 - 0.2 mg/dL 05/19/2024 1:52 PM CDT [facility] BILIRUBIN,INDIRE CT 0.1(L) 0.2 - 0.8 mg/dL 05/19/2024 1:52 PM CDT [facility] ALK PHOSPHATASE 120(H) 35 - 104 IU/L 05/19/2024 1:52 PM CDT [facility] ALT (SGPT) 20 10 - 35 IU/L 05/19/2024 1:52 PM CDT [facility] AST (SGOT) 33 10 - 35 IU/L 05/19/2024 1:52 PM CDT [facility] Blood BLOOD SPECIMEN / Unknown Venipuncture / Unknown 05/19/2024 7:27 AM CDT 05/19/2024 7:27 AM CDT Lizzette Batista NP CHEMISTRY [facility] [address] [place] [address], [place] * (ABNORMAL) BASIC METABOLIC PANEL (05/19/2024 7:27 AM CDT) SODIUM 134(L) 136 - 145 mmol/L 05/19/2024 1:52 PM CDT [facility] POTASSIUM 4.3 3.5 - 5.1 mmol/L 05/19/2024 1:52 PM CDT [facility] CHLORIDE 97(L) 98 - 107 mmol/L 05/19/2024 1:52 PM CDT [facility] CO2,TOTAL 26 22 - 29 mmol/L 05/19/2024 1:52 PM CDT [facility] ANION GAP 11 5 - 18 05/19/2024 1:52 PM CDT [facility] GLUCOSE 93 70 - 99 mg/dL 05/19/2024 1:52 PM CDT [facility] CALCIUM 9.4 8.8 - 10.2 mg/dL 05/19/2024 1:52 PM CDT [facility] BUN 16 8 - 23 mg/dL 05/19/2024 1:52 PM CDT [facility] CREATININE 0.57 0.50 - 0.90 mg/dL 05/19/2024 1:52 PM CDT [facility] BUN/CREAT RATIO 28(H) 10 - 20 1:52 PM CDT [facility] eGFR >90 >90 mL/min/1.7 3m2 05/19/2024 1:52 PM CDT [facility] Comment:As of 2021, eG FR is calculated by the CKD-EPI creatinine equation without race adjustment. ??eGFR can be influenced by muscle mass, exercise, and diet. ??The reported eGFR is an estimation only and is only applicable if the renal function is stable. Blood BLOOD SPECIMEN / Unknown Venipuncture / Unknown 05/19/2024 7:27 AM CDT 05/19/2024 7:27 AM CDT Lizzette Batista NP CHEMISTRY [facility] [address] [place] [address], * (ABNORMAL) VITAMIN E (04/28/2024 9:36 AM CDT) Vit E Alpha [place] 8.4(L) 9.0 - 29.0 mg/L 05/02/2024 4:08 PM CDT [facility] Vit E Gamma [place] 0.3(L) 0.5 - 4.9 mg/L 05/02/2024 4:08 PM CDT [facility] ([facility] Comment: Reference intervals for alpha and gamma-tocopherol determined from National Health and Nutrition Examination Survey, 1112-2125. Individuals with alpha-tocopherol levels less than 5.0 mg/L are considered vitamin E deficient. Blood BLOOD SPECIMEN / Unknown Venipuncture / Unknown 04/28/2024 9:36 AM CDT 04/28/2024 9:36 AM CDT Narrative [facility] ([facility]) - 05/02/2024 4:08 PM CDT Test(s) 023604-Onzmsou E(Alpha Tocopherol); 921377- Vitamin E(Gamma Tocopherol) was developed and its performance characteristics determined by [facility]. It has not been cleared or approved by the Food and Drug Administration. Performed at: ??01 - [address] ??[id number] Back Shoe Cutter: Lulu Jordan MD, Phone: ??[phone] Kimani WALL SEND OUTS [facility] ([facility]) [address] [place] [id number], * VITAMIN A BLOOD (04/28/2024 9:36 AM CDT) Vitamin A 31.3 22.0 - 69.5 ug/dL 05/02/2024 4:08 PM CDT [facility] ([facility]) Comment: Reference intervals for vitamin A determined from [facility] internal studies. Individuals with vitamin A less than 20 ug/dL are considered vitamin A deficient and those with serum concentrations less than 10 ug/dL are considered severely deficient. This test was developed and its performance characteristics determined by [facility]. It has not been cleared or approved by the Food and Drug Administration. Blood BLOOD SPECIMEN / Unknown Venipuncture / Unknown 04/28/2024 9:36 AM CDT 04/28/2024 9:36 AM CDT Narrative [facility] ([facility]) - 05/02/2024 4:08 PM CDT Performed at: ??01 - [address] ??[id number] Back Shoe Cutter: Lulu Jordan MD, Phone: ??[phone] Kimani WALL SEND OUTS Performing Organization Address City/State/[facility] Co de Phone Number [facility] ([facility]) [address] [place] [address], * VITAMIN D 25 (DEFICIENCY) (04/28/2024 9:36 AM CDT) Pathologist [facility] VITAMIN D TOTAL 79.0 20.0 - 80.0 ng/mL 04/29/2024 10:09 AM CDT [facility] Blood BLOOD SPECIMEN / Unknown Venipuncture / Unknown 04/28/2024 9:36 AM CDT 04/28/2024 9:36 AM CDT Narrative [facility] - 04/29/2024 10:09 AM CDT ? Vitamin D Status Deficiency: ? <20 ng/mL Insufficiency: ?20-29 ng/mL Sufficiency: ?30-80 ng/mL Possible Toxicity: ??>80 ng/mL Based on [place] of Medicine recommendations Biotin supplements may cause clinically significant interference for this test assay. ??If interference is suspected, it is strongly recommended that biotin is discontinued for at least one week prior to retesting. Kimani Nick Sergo WALL SEND OUTS [facility] [address] [place] [address], [place] * MR ABDOMEN MRCP PANCREAS WWO (04/28/2024 9:29 AM CDT) Anatomical Region Laterality Modality Abdomen, PANCREAS Magnetic Reson ance 04/28/2024 4:28 PM CDT Narrative 04/28/2024 4:28 PM CDT For Patients: ??As a result of the Cures Act, medical imaging exams and procedure reports are released immediately into your electronic medical record. ??You may view this report before your referring provider. ??If you have questions, please contact your health care provider. INDICATION: Bile duct stricture. History of Whipple surgery. Pancreatic cyst. Comparison : Abdominal MRI dated 04 July 2022. Technique : Abdominal MRI with T1 in and out of phase, T2, diffusion weighted, and progressively delayed post-contrast images. Intravenous gadolinium administered. Heavily T2 weighted 2D ?? and 3D ?? MRCP images. Findings : No fatty infiltration of the liver. A few subcapsular wedge-shaped areas of arterial enhancement in the liver which normalize on the more delayed post-contrast images. No discrete focal liver lesions identified. No abnormalities identified in visualized portions of the spleen and adrenal glands. Bilateral renal cysts. The kidneys are otherwise unremarkable. No hydronephrosis. Whipple surgery. 2.1 x 1.3 cm lobulated septated cyst in the body of the pancreas adjacent to the pancreaticojejunostomy is unchanged. Atrophy of the remainder of the pancreas. No adenopathy. No bile duct dilation. Normal size of the main pancreatic duct. Impression : 1. 2.1 cm lobulated septated cyst in the body of the pancreas adjacent to the pancreaticojejunostomy is unchanged. Dictated by Ghanshyam Zheng MD @ 04/28/2024 4:28:18 PM (Electronically Signed) Procedure Note Ghanshyam Zheng MD - 04/28/2024 For Patients: As a result of the Cures Act, medical imagingexams and procedure reports are released immediately into your electronicmedical record. You may view this report before your referring provider.If you have questions, please contact your health care provider. INDICATION: Bile duct stricture. History of Whipple surgery. Pancreatic cyst. Comparison : Abdominal MRI dated 04 July 2022. Technique : Abdominal MRI with T1 in and out of phase, T2, diffusion weighted, andprogressively delayed post-contrast images. Intravenous gadoliniumadministered. Heavily T2 weighted 2D and 3D MRCP images. Findings : No fatty infiltration of the liver. A few subcapsular wedge-shaped areas of arterial enhancement in the liverwhich normalize on the more delayed post-contrast images. No discretefocal liver lesions identified. No abnormalities identified in visualized portions of the spleen andadrenal glands. Bilateral renal cysts. The kidneys are otherwise unremarkable. Nohydronephrosis. Whipple surgery. 2.1 x 1.3 cm lobulated septated cyst in the body of the pancreas adjacentto the pancreaticojejunostomy is unchanged. Atrophy of the remainder ofthe pancreas. No adenopathy. No bile duct dilation. Normal size of the main pancreatic duct. Impression : 1. 2.1 cm lobulated septated cyst in the body of the pancreas adjacent tothe pancreaticojejunostomy is unchanged. Dictated by Ghanshyam Zheng MD @ 04/28/2024 4:28:18 PM (Electronically Signed) Gaby Collins MD MR * LIPID PANEL W REFLEX MEASURED LDL (08/30/2022 11:20 AM ASIC DESIGN ENGINEER) CHOLESTEROL,TOTAL 118 100 - 199 mg/dL 09/01/2022 12:12 AM ASIC DESIGN ENGINEER [employer] [facility] TRIGLYCERIDES 62 <150 mg/dL 09/01/2022 12:12 AM ASIC DESIGN ENGINEER [employer] HDL CHOLESTEROL 46 >40 mg/dL 12:12 AM ASIC DESIGN ENGINEER [facility] NON-HDL CHOLESTEROL 72 <145 mg/dl 09/01/2022 12:12 AM ASIC DESIGN ENGINEER [facility] CHOL/HDL RATIO 2.57 <4.50 09/01/2022 12:12 AM ASIC DESIGN ENGINEER [facility] LDL CHOLESTEROL 60 <=130 mg/dL 09/01/2022 12:12 AM ASIC DESIGN ENGINEER [facility] VLDL CHOLESTEROL 12 <=30 mg/dL 09/01/2022 12:12 AM ASIC DESIGN ENGINEER [facility] PROVIDER ORDERED STATUS RANDOM 09/01/2022 12:12 AM [facility] Blood BLOOD SPECIMEN / Unknown Venipuncture / Unknown 08/30/2022 11:20 AM ASIC DESIGN ENGINEER 08/30/2022 11:23 AM ASIC DESIGN ENGINEER Gaby Collins MD CHEMISTRY [facility] [address] [place] [address], * (ABNORMAL) XR DXA BONE DENSITY 2 SITES AXIAL (05/08/2022 8:38 AM CDT) Anatomical Region Laterality Modality Spine, HIPS, HIPL, HIPR Other Impressions 05/10/2022 5:19 PM CDT Osteopenia. Elevated hip fracture score and statistically significant worsening BMD since last scan. RECOMMENDATIONS: The National Osteoporosis Foundation recommends pharmacologic treatment for patients with T-scores of -2.5 or less, patients with prior history of fragility fractures, or patients with 10-year probability of greater than 3% at hips or greater than 20% of suffering major osteoporotic fractures. Recommend continued optimization of calcium and vitamin D intake through dietary means and/or supplementation and regular exercise. Consider pharmacologic therapy for osteopenia with increased fracture risk. Follow-up bone density reading in 2 years if therapy initiated to assess therapeutic efficacy. Pia Johnston PA-C Narrative 05/10/2022 5:19 PM CDT For Patients: Results are automatically released to your [email or web address]) account once available, in compliance with federal regulations. This means that you may see your results before your provider has had a chance to review them. Please allow 2-3 business days for your provider to comment on the results. XR DXA Bone Mineral Density (BMD) EXAM LOCATION: [facility] [address] [facility] [address] PATIENT NAME: Malinda Putnam DATE OF : 1950 EXAM DATE: 05/08/2022 REQUESTING PROVIDER: Gaby Collins MD GENDER AT : female HEIGHT: 5' 2.5 (03/02/2022) WEIGHT: ??140 lb 4.8 oz (04/20/2022) MENOPAUSAL STATUS: Postmenopausal RACE/ETHNICITY: White RISK FACTORS: Smoking (prior) and White Race CURRENT MEDICATION FOR BONE LOSS: NONE INDICATION: Follow-up of existing osteopenia and Post-Menopause COMPARISON DATE(S): 2015 DXA scans are compared to prior studies for a patient only when the two (or more) studies were performed on the same scanner. It is not possible to compare data generated on one scanner to data from another because there are not standards in DXA equipment. This applies even if the two scanners are made by the same yeast culture developer. PROCEDURE: Dual-energy x-ray absorptiometry performed with routine technique. Reporting is completed in the form of a T-score. The T-score represents the standard deviation from peak bone mass based on young healthy adult. A Z-score is used for diagnosis in premenopausal women, and for men under the age of 50. FINDINGS: RESULT LUMBAR SPINE L1 - L4 BMD: 1.215 g/cm2 T-Score: + 0.2 Z-Score: + 1.9 Change from prior in 2016: ??Increase 13.8%. Right femoral neck BMD: 0.707 g/cm2 T-Score: - 2.4 Z-Score: - 0.5 Change from prior in 2016: ??Decrease 19.8%. Right hip BMD: 0.735 g/cm2 T-Score: - 2.2 Z-Score: - 0.5 Change from prior in 2016: ??Decrease 19.1%. WHO criteria: Normal: T-score at or above -1 SD Osteopenia: T-score between -1.1 and -2.4 SD Osteoporosis: T-score at or below -2.5 SD FRAX RISK CALCULATION (USED FOR OSTEOPENIA ONLY): 10-year probability of major osteoporotic fracture: 15.2%. 10-year probability of hip fracture: 4.4%. Gaby Collins MD DEXA * ANTI HCV (02/19/2020 9:00 AM CDT) HEPATITIS C ANTIBODY Non-React alexandre Non-React alexandre 02/19/2020 2:14 PM CDT [facility] Comment:Antibodies to HCV no t detected; does not exclude the possibility of exposure to HCV. Blood BLOOD SPECIMEN / Unknown Venipuncture / Unknown 02/19/2020 9:00 AM CDT 02/19/2020 9:00 AM CDT Gaby Collins MD SEND OUTS [facility] [address] [place] [address], [place] * COLONOSCOPY (05/06/2019 11:11 AM CDT) 05/06/2019 11:1 1 AM CDT Narrative Transcriptions Nash Huber MD - 05/06/2019 12:16 PM CDT Patient Name: Malinda Putnam Procedure Date: 05/06/2019 Gender: Female Date of : 1950 Admit Type: Outpatient Procedure: Colonoscopy Proceduralist: Nash Huber MD , Mallika Ulloa (Nurse) Referring MD: Gaby Collins Indications/Pre-Op Diagnosis: Surveillance: Personal history ofadenomatous polyps on last colonoscopy > 5 years ago,Last colonoscopy: August 2012 Medications: Fentanyl 100 micrograms IV, Midazolam 4 mgIV Procedure Description: The patient had risks, benefits and alternatives explained to andgave informed consent. The patient had a stable cardiopulmonary status and judged an adequate candidate for conscious sedation. The Colon CF-H180AL [id number] was passed through the anus and advancedto the cecum, identified by appendiceal orifice and ileocecal valve. The colonoscopy was performed without difficulty. The patient toleratedthe procedure well. The quality of the bowel preparation was good. The ileocecal valve, appendiceal orifice, and rectum were photographed. Complications: No immediate complications. Estimated Blood Loss & Specimen: Estimated blood loss: none. Findings: The perianal and digital rectal examinations were normal. A 3 mm polyp was found in the transverse colon. The polyp wassessile. The polyp was removed with a cold biopsy forceps. Resection and retrieval were complete. Multiple small and large-mouthed diverticula were found in thesigmoid colon. There was narrowing of the colon in association with the diverticular opening. The colon (entire examined portion) was moderately redundant. The exam was otherwise without abnormality on direct and retroflexion views. Impressions/Post-Op Diagnosis: - One 3 mm polyp in the transverse colon, removed with a cold biopsy forceps. Resected and retrieved. - Mild diverticulosis in the sigmoid colon. There was narrowing ofthe colon in association with the diverticular opening. - Redundant colon. - The examination was otherwise normal on direct and retroflexionviews. Recommendation: - Patient has a contact number available for emergencies. The signsand symptoms of potential delayed complications were discussed with the patient. Return to normal activities tomorrow. Written discharge instructions were provided to the patient. - Resume previous diet. - Continue present medications. - Await pathology results. - Repeat colonoscopy in 5 years for surveillance with an adultscope. Moderate Sedation: Moderate (conscious) sedation was administered by the endoscopy nurse and supervised by the endoscopist. The following parameters were monitored: oxygen saturation, heart rate, respiratory rate, blood pressure, adequacy of pulmonary ventilation and reponse to care. Please refer to the the medical centeralexis'ts medical record flowsheets and nursing notes for moderate sedation details. Total physician intraservice time was 21 minutes. Nahs Huber MD 05/06/2019 12:16:17 PM This report has been signed electronically. Note Initiated On: 05/06/2019 11:11 AM Procedure Code(s): --- Professional --- 96132, Colonoscopy, flexible; with biopsy, single or multiple Diagnosis Code(s): --- Professional --- Z86.010, Personal history of colonicpolyps D12.3, Benign neoplasm of transverse colon (hepatic flexure or splenic flexure) K57.30, Diverticulosis of large intestine without perforation or abscess withoutbleeding Q43.8, Other specified congenitalmalformations of intestine CPT copyright 2018 [employer]. All rights reserved. The codes documented in this report are preliminary and upon supervisor backfilling reviewmay be revised to meet current compliance requirements. Scope In: 11:52:56 AM Scope Withdrawal Time 0 hours 8 minutes 34 seconds Scope Out: 12:11:25 PM Nash Huber MD PROCEDURE ORD from Last 3 Months or Most Recently Relevant to Health Maintenance Advance Directives * Full Code (Latest Code Status on File) Date Activated Date Inactivated Comments 12/10/2023 5:31 AM 12/10/2023 4:00 PM Question Answer Comments Code Status Discussion: Other * Full Code Date Activated Date Inactivated Comments 09/22/2023 2:40 PM 09/24/2023 2:26 PM Question Answer Comments Code Status Discussion: Reviewed Preferences * Full Code Date Activated Date Inactivated Comments 08/30/2021 8:01 AM 08/31/2021 2:29 AM Question Answer Comments Code Status Discussion: Unable to Assess Preferences, Provider to review later * Full Code Date Activated Date Inactivated Comments 07/08/2021 10:12 AM 07/08/2021 7:06 PM Question Answer Comments Code Status Discussion: Not Discussed * Full Code Date Activated Date Inactivated Comments 05/27/2021 5:58 AM 05/28/2021 3:13 PM Question Answer Comments Code Status Discussion: Not Discussed Care Teams Washer Off Relationship Specialty Start Date End Date Gaby Collins MD [address] [place] [address] PCP - General Family Practice 07/15/19 Lenny Hernandez MD [address] [place] [address] Consulting Physician Surgery - General 11/29/19 Vonnie Barragan MD Hepatobiliary and Pancreatic Surgery Resident 02/25/20 [place] [address] [address] [address] [place] [address] Gastroenterology Gastroenterology 05/20/20 Parisa Phillips MD [address] [place] [address] Hematology Hematology and Oncology 11/30/20 Lizzette Batista NP [address] [place] [address] Hematology Nurse Practitioner - Family 11/30/20 Mirtha Petty NP [address] [place] [address] Nurse Practitioner - Gerontology 09/22/23
--- OUTSIDE RECORDS SUMMARY | 2024-07-03 12:55 | XMS_ITS | Referral Summary ---
Author Organization [facility] Address [address] [place] [address] Care Team Providers Care Hardware Trainer Name Role Phone DennisGaby Primary Care Provider [phone] Allergies Active Allergy Reactions Criticality Noted Date [...] Dates Next Due TD,PF 7+ (Tenivac) 09/08/1999 Social History Tobacco Use Types Packs/Day Years [...] on file Medical Devices Implanted Type Area Contracting Engineer Device Identifier Shelf Expiration Date Model / Serial / Lot Bone Cement Simplex Full Dose [id number] Implanted:Qty: 2 on 06/01/2015 by Perfecto Dailey MD at [facility] Right: Knee [employer] 01/23/2017 [id number] / / [id number] Imp Baseplate Tibial Howm Tri 3 5520-[id number] Implanted:Qty: 1 on 06/01/2015 by Perfecto Dailey MD at [facility] Right: Knee [employer] 11/25/2019 5520-B-[id number] / / [id number] Imp Comp Fem Strk Triathln Cr Rt 4 [id number] Implanted:Qty: 1 on 06/01/2015 by Perfecto Dailey MD at [facility] Right: Knee [employer] 03/25/2020 [id number] / / [id number] Imp Comp Patella Tri X3 Ps 31x9mm Implanted:Qty: 1 on 06/01/2015 by Perfecto Dailey MD at [facility] Right: Knee [employer] 01/24/2020 5550-G-[id number] / / [id number] Imp Insert Tibial Howm Tri 3x11mm 5530-G-[id number] Implanted:Qty: 1 on 06/01/2015 by Perfecto Dailey MD at [facility] Right: Knee [employer] 03/25/2020 [id number] / / [id number] Advance Directives For more information, please contact: [phone] * Full Code (Latest Code Status on File) Date Activated Date Inactivated Comments 06/03/2015 5:00 PM 05/20/2019 7:33 AM * Full Code Date Activated Date Inactivated Comments 06/01/2015 12:47 PM 06/03/2015 5:00 PM * No Code Status Date Activated Date Inactivated Comments 07/29/2004 2:53 PM 07/29/2004 2:53 PM Care Teams Hardware Trainer Relationship Specialty Start Date End Date Gaby Collins PCP - General Family Practice 08/11/13
[2024-07-03 13:23] LABS: Lactate* 1.1 mmol/L (0.5-1.9)
[2024-07-03 13:26] LABS: Basophils Absolute Auto 0.07 K/uL (0.00-0.30); Eosinophils Absolute Auto 0.07 K/uL (0.00-0.50); Hematocrit 35.2 % (33.0-51.0); Immature Granulocytes Abs Auto 0.01 K/uL (0.00-0.30); Immature Granulocytes Pct Auto 0.1 %; Lymphocytes Percent Auto 18.9 % (20-44); Mean Corpuscular HGB Conc 34 gm/dL (32-36); Mean Corpuscular Hemoglobin 36 pg (26-34); Mean Corpuscular Volume 105 fL (80-100); Monocytes Percent Auto 6.7 % (0.0-11.0); Neutrophils Percent Auto 72.3 % (42.0-72.0); Platelet Count* 423 K/uL (140-440); RDW Coefficient of Variation % 12.1 % (11.5-15.5); Red Blood Count 3.37 m/uL (4.00-5.20); White Blood Count* 7.04 K/uL (4.50-11.00)
[2024-07-03 13:28] LABS: Slide Review Reflex No
[2024-07-03 13:30] LABS: PCR FLU A Negative PCR FLU A (Negative); PCR FLU B Negative PCR FLU B (Negative); PCR RSV Negative PCR RSV (Negative); SARS PCR* Negative SARS-CoV-2 (Negative)
[2024-07-03 13:39] LABS: Albumin* 4.2 g/dL (3.3-5.0); Chloride* 94 mmol/L (96-114); Sodium* 127 mmol/L (135-149)
[2024-07-03 13:40] LABS: Potassium* 4.1 mmol/L (3.6-5.1)
[2024-07-03 13:41] LABS: Appearance Urine Clear (Clear); Bilirubin Urine Negative (Negative); Blood Urine Negative (Negative); Color Urine Yellow (Yellow); Glucose Urine Negative (Negative); Ketones Urine Negative (Negative); Leukocyte Esterase Urine Negative (Negative); Nitrite Urine Negative (Negative); Protein Urine Negative (Negative); Urobilinogen Urine 0.2 (0.2-1.0); pH Urine 6.5 (5.0-8.5)
[2024-07-03 13:42] LABS: Creatinine* 0.5 mg/dL (0.5-1.5); Est. Creatinine Clearance* 38.44; Estimated Glomerular Filt Rate 98 ml/min
[2024-07-03 13:43] LABS: Alanine Aminotransferase* 28 U/L (4-35); Alkaline Phosphatase* 108 U/L (40-150); Anion Gap 9 mEq/L (7-15); Aspartate Amino Transferase* 38 U/L (12-35); Bilirubin Direct* 0.2 mg/dL (0.0-0.5); Bilirubin Total* 0.5 mg/dL (0.1-1.5); Blood Urea Nitrogen* 16 mg/dL (7-30); Carbon Dioxide* 24 mmol/L (20-32); Glucose* 110 mg/dL (60-115); Total Protein* 7.2 g/dL (6.0-8.3)
[2024-07-03 14:01] LABS: RBC Urine 0-2 (0-2); Squamous Epithelial Cell Urine Few (None-Few); WBC Urine 0-2 (0-5)
[2024-07-03 14:09] LABS: C Reactive Protein* < 0.5 mg/dL (0.5-1.0)
[2024-07-03] MEDS: 0.9 % SODIUM CHLORIDE 1000 ml 1,000 ML IV (14:20)
--- NOTE | 2024-07-03 14:20 | ED_ITS ---
HPI - General Adult General Chief complaint: Urogenital Problems, Female Stated complaint: IV Infusion Time Seen by Provider: 07/03/24 12:47 Source: patient Mode of arrival: ambulatory Limitations: no limitations History of Present Illness HPI narrative: 73-year-old female presenting today at the request of her primary care provider. Patient was diagnosed with a UTI approximately 4 days ago and started on Keflex . Urine cultures came back stating that the growth was not susceptible to Keflex so patient was switched to Macrobid after 2 days. She took Macrobid for 2 days when she got another call that the culture was not susceptible to Macrobid and she was struck to to come to the ER for IV antibiotics as IV options were the only ones that her urine culture was susceptible to. Patient states that after 2 days of Keflex for her UTI symptoms had indeed resolved. She was having increased frequency and urgency with the inability to urinate when she felt like she had to, and dysuria. She states that those symptoms have completely resolved. She stated that she felt ?feverish? this morning. When I asked her to explain what this meant she states that she just feels ?like shit?, she feels rundown and tired. She states that her temperature at home was 99 but that her usual temperature is 97? so this made her feel quite unwell. She also states that she felt ?chills?. According to the patient this means that her skin feels chilly. Patient denies shivering or shaking. She denies nausea or vomiting. She denies abdominal pain. 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 Patient does state that she takes a tablet of sodium every morning. Related Data Home Medications ?Medication ?Instructions ?Recorded ?Confirmed acetaminophen 500 mg tablet 1,000 mg PO Q6-8H PRN 04/26/22 07/03/24 amlodipine 2.5 mg tablet 2.5 mg PO DAILY 04/26/22 07/03/24 ascorbic acid (vitamin C) 1,000 mg 1 g PO DAILY 04/26/22 07/03/24 tablet aspirin 81 mg tablet,delayed 81 mg PO DAILY 04/26/22 07/03/24 release clopidogrel 75 mg tablet 75 mg PO DAILY 04/26/22 07/03/24 zvhlat-[id number]-[id number] 3 cap PO TID 04/26/22 07/03/24 36,000-114,000-180,000 unit capsule,delay rel multivitamin (Multiple Vitamins 1 tab PO QAM 04/26/22 07/03/24 tablet) pantoprazole 40 mg tablet,delayed 40 mg PO DAILY 04/26/22 07/03/24 release rosuvastatin 10 mg tablet 5 mg PO DAILY 04/26/22 07/03/24 sennosides 8.6 mg tablet 4.3 mg PO DAILY PRN 04/26/22 07/03/24 sodium chloride 1,000 mg soluble 1 mg PO BID 04/26/22 07/03/24 tablet hydroxyurea 500 mg capsule 500 mg PO DAILY 05/05/22 07/03/24 doxycycline monohydrate 100 mg 100 mg PO PRN 03/14/23 03/14/23 capsule Allergies Allergy/AdvReac Type Severity Reaction Status Date / Time ciprofloxacin Allergy Intermediate Myalgia Verified 07/03/24 12:29 doxycycline Allergy Intermediate Headache Verified 07/03/24 12:29 hydromorphone Allergy Intermediate Slurred Verified 07/03/24 12:29 speech simvastatin Allergy Intermediate MYALGIA Verified 07/03/24 12:29 oxycodone Allergy Mild Unknown Verified 07/03/24 12:29 pilocarpine Allergy Mild HEART Verified 07/03/24 12:29 RACING, BLURRED VISION promethazine Allergy Mild Unknown Verified 07/03/24 12:29 propranolol Allergy Mild Unknown Verified 07/03/24 12:29 scopolamine Allergy Mild Unknown Verified 07/03/24 12:29 Beta Adrenergic Blockers Allergy Mild Unknown Uncoded 03/14/23 08:41 Review of Systems Status of ROS: Reports: 10 or more systems reviewed and unremarkable except as noted in History and below [facility] Medical History 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.6 - Benign neoplasm of pancreas (ICD-10) GERD (gastroesophageal reflux disease) ?K21.9 - Gastro-esophageal reflux disease without esophagitis (ICD-10) Atrophic vaginitis ?N95.2 - Postmenopausal atrophic vaginitis (ICD-10) Mixed hyperlipidemia ?E78.2 - Mixed hyperlipidemia (ICD-10) Ovarian cyst ?N83.209 - Unspecified ovarian cyst, unspecified side (ICD-10) Surgical History Hx of ovarian cystectomy ?Z98.890 - Other specified postprocedural states (ICD-10) ?Z87.42 - Personal history of other diseases of the female genital tract (ICD-10) History of incisional hernia repair ?Z98.890 - Other specified postprocedural states (ICD-10) ?Z87.19 - Personal history of other diseases of the digestive system (ICD-10) Hx of cholecystectomy ?Z90.49 - Acquired absence of other specified parts of digestive tract (ICD- 10) Hx of appendectomy ?Z90.49 - Acquired absence of other specified parts of digestive tract (ICD- 10) History of carpal tunnel release ?Z98.890 - Other specified postprocedural states (ICD-10) Hx of reconstruction of anterior cruciate ligament tear ?Z98.890 - Other specified postprocedural states (ICD-10) History of ERCP ?Z98.890 - Other specified postprocedural states (ICD-10) 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) ?Z90.49 - Acquired absence of other specified parts of digestive tract (ICD- 10) History of hysterectomy ?Z90.710 - Acquired absence of both cervix and uterus (ICD-10) Knee joint replacement status ?Z96.659 - Presence of unspecified artificial knee joint (ICD-10) 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 Alert and oriented. Answers questions appropriately. Mood and affect are appropriate. Thoughts are goal oriented and rational. No tangential or magical thinking noted. Patient speaks in full sentences without needing to catch her breath. Patient does not appear ill or toxic. HEENT: Normocephalic atraumatic. Pupils are equally round reactive to light. Extraocular muscles are intact. Conjunctivae are moist without any icterus noted. Moist mucous membranes. Posterior pharynx is normal. Cardiovascular: Heart is regular rate and rhythm . Lungs: Clear to auscultation bilaterally no wheezes rhonchi or rales are appreciated. Patient takes deep breaths without any discomfort. Abdomen: Soft and nontender nondistended with normal bowel sounds. No guarding or rebound. No right upper quadrant tenderness, negative Parekh sign. No suprapubic pain. Extremities: Bilateral lower extremities are without edema. Skin: Well perfused without any obvious rashes. Const: Vital Signs, click to edit/add: Vital Signs - 24 hr 07/03/24 12:31 07/03/24 14:50 Temperature 97.9 F 98.5 F Pulse Rate [Pulse Oximeter] 68 Respiratory Rate 16 Blood Pressure [Ri t Upper Arm] 145/77 H Pulse Oximetry 99 Oxygen Delivery Me thod Room Air Course Course ED Course: Who proceeded with blood work: CBC showed normal white cell count at 7, normal hemoglobin at 12. Mean cell volume and MCH both slightly elevated. Sodium was low at 127, chloride 94. Normal potassium. Remainder of chemistries were unremarkable. LFTs were unremarkable. CRP less than 0.5. Urinalysis entirely normal. Triple swab negative. Discussed with patient that her UTI symptoms had resolved with antibiotic treatment and that her labs are unremarkable today. It does seem that the antibiotics she was taking were indeed working. Patient does not know what her baseline sodium isn't given that she has been feeling unwell for the last week I do not think it is unreasonable for us to treat her with a L of normal saline at this time. Given that the patient is afebrile, is not having any shivering or rigors per her own descriptions, does not have any evidence of infection on her blood work, I do think it is reasonable for her to finish her 5 day course of Macrobid. I do not think that IV antibiotics are necessary at this time. Patient will follow-up with her primary care provider tomorrow for repeat sodium and general well-being check. Vital Signs Vital signs: Initial Vital Signs Temperature 97.9 F 07/03/24 12:31 Temperature Source Oral 07/03/24 12:31 Pulse Rate 68 07/03/24 12:31 Pulse Rhythm Regular 07/03/24 12:31 Pulse Strength 3+ Normal 07/03/24 12:31 Respiratory Rate 16 07/03/24 12:31 Blood Pressure 145/77 H 07/03/24 12:31 Blood Pressure Mean 99 07/03/24 12:31 Blood Pressure Position Sitting 07/03/24 12:31 Pulse Oximetry 99 07/03/24 12:31 Oxygen Delivery Method Room Air 07/03/24 12:31 Vital Signs Temperature 97.9 F 07/03/24 12:31 Pulse Rate 68 07/03/24 12:31 Respiratory Rate 16 07/03/24 12:31 Blood Pressure 145/77 H 07/03/24 12:31 Pulse Oximetry 99 07/03/24 12:31 Oxygen Delivery Method Room Air 07/03/24 12:31 Temperature 98.5 F 07/03/24 14:50 Pulse Rate 68 07/03/24 12:31 Respiratory Rate 16 07/03/24 12:31 Blood Pressure 145/77 H 07/03/24 12:31 Pulse Oximetry 99 07/03/24 12:31 Oxygen Delivery Method Room Air 07/03/24 12:31 Medications Administered Medications: Discontinued Medications Generic Name Dose Route Start Last Admin Trade Name Freq PRN Reason Stop Dose Admin Sodium Chloride 1,000 mls @ 1,000 mls/hr 07/03/24 14:15 07/03/24 15:10 0.9 % Sodium Chloride 1000 Ml IV 07/03/24 15:14 Infused .Q1H DAVY Infusion Medical Decision Making MDM Narrative Medical decision making narrative: 73-year-old female with UTI, symptoms resolved on current antibiotic treatment. will finish current antibiotic treatment. Hyponatremia, chronic. Patient unsure of her baseline. Treated with IVF today. Will follow-up tomorrow. Lab Data Lab results reviewed: Yes I reviewed the patient's lab results Labs: Lab Results 07/03/24 07/03/24 07/03/24 Range/Units 12:38 13:20 13:26 WBC 7.04 (4.50-11.00) K/uL RBC 3.37 L (4.00-5.20) m/uL Hgb 12.0 (12.0-16.0) gm/dL Hct 35.2 (33.0-51.0) % MCV 105 H (80-100) fL MCH 36 H (26-34) pg MCHC 34 (32-36) gm/dL RDW Coeff of Erich 12.1 (11.5-15.5) % Plt Count 423 (140-440) K/uL Neut % (Auto) 72.3 H (42.0-72.0) % Lymph % (Auto) 18.9 L (20-44) % Ashley % (Auto) 6.7 (0.0-11.0) % Eos % (Auto) 1.0 (0.0-7.0) % Baso % (Auto) 1.0 (0.0-3.0) % Neut # (Auto) 5.10 (1.7-7.0) K/uL Lymph # (Auto) 1.30 (0.90-2.90) K/uL Ashley # (Auto) 0.50 (0.00-0.90) K/UL Eos # (Auto) 0.07 (0.00-0.50) K/uL Baso # (Auto) 0.07 (0.00-0.30) K/uL Abs Immat Gran (auto) 0.01 (0.00-0.30) K/uL Imm/Tot Granulo (auto) 0.1 % Sodium 127 L (135-149) mmol/L Potassium 4.1 (3.6-5.1) mmol/L Chloride 94 L (96-114) mmol/L Carbon Dioxide 24 (20-32) mmol/L Anion Gap 9 (7-15) mEq/L BUN 16 (7-30) mg/dL Creatinine 0.5 (0.5-1.5) mg/dL Estimated Creat Clear 38.44 Estimated GFR 98 ml/min Glucose 110 (60-115) mg/dL Lactate 1.1 (0.5-1.9) mmol/L Calcium 9.0 (8.4-10.6) mg/dL Total Bilirubin 0.5 (0.1-1.5) mg/dL Direct Bilirubin 0.2 (0.0-0.5) mg/dL AST 38 H (12-35) U/L ALT 28 (4-35) U/L Alkaline Phosphatase 108 (40-150) U/L C-Reactive Protein < 0.5 L (0.5-1.0) mg/dL Total Protein 7.2 (6.0-8.3) g/dL Albumin 4.2 (3.3-5.0) g/dL Urine Color Yellow (Yellow) Urine Appearance Clear (Clear) Urine pH 6.5 (5.0-8.5) Ur Specific Clover 1.010 (1.000-1.030) Urine Protein Negative (Negative) Urine Glucose (UA) Negative (Negative) Urine Ketones Negative (Negative) Urine Blood Negative (Negative) Urine Nitrite Negative (Negative) Urine Bilirubin Negative (Negative) Urine Urobilinogen 0.2 (0.2-1.0) Ur Leukocyte Esterase Negative (Negative) Urine RBC 0-2 (0-2) Urine WBC 0-2 (0-5) Ur Squamous Epith Cells Few (None-Few) Urine Bacteria None (None) SARS-CoV-2 (PCR) Negative SARS-CoV-2 (Negative) Influenza Type A (PCR) Negative PCR FLU A (Negative) Influenza Type B (PCR) Negative PCR FLU B (Negative) RSV (PCR) Negative PCR RSV (Negative) Discharge Plan Discharge Clinical Impression: UTI (urinary tract infection), Hyponatremia Patient Disposition: Home, Self-Care Condition: Stable Additional Instructions: At finish taking your Macrobid as prescribed. You should take 1 tablet 2 times per day for a total of 5 days- you have already taken this for 2 days, take for 3 more to finish out the 5 day course. Your sodium was low at 127 today-you should follow-up with your primary care provider tomorrow or Sunday to have a repeat sodium check. You should return to the emergency room if your temperature increases to 100.4 or above, you have shaking chills, you develop vomiting, weakness or abdominal pain. Prescriptions: No Action clopidogrel 75 mg tablet 75 mg PO DAILY acetaminophen 500 mg tablet 1,000 mg PO Q6-8H PRN aspirin 81 mg tablet,delayed release (DR/EC) 81 mg PO DAILY sennosides 8.6 mg tablet 4.3 mg PO DAILY PRN Rx Instructions: Hold if experiencing loose stools. multivitamin [Multiple Vitamins] Tablet 1 tab PO QAM pantoprazole 40 mg tablet,delayed release (DR/EC) 40 mg PO DAILY amlodipine 2.5 mg tablet 2.5 mg PO DAILY rosuvastatin 10 mg tablet 5 mg PO DAILY okopnw-plohkbyf-vrmzuny 36,000-114,000- 180,000 unit capsule,delayed release(DR/EC) 3 cap PO TID Rx Instructions: AND ONE CAPSULE WITH SNACKS, NOT TO EXCEED 9 CAPS PER DAY. sodium chloride 1,000 mg tablet,soluble 1 mg PO BID ascorbic acid (vitamin C) 1,000 mg tablet 1 g PO DAILY doxycycline monohydrate 100 mg capsule 100 mg PO PRN hydroxyurea 500 mg capsule 500 mg PO DAILY Patient Comments: TAKE 1 CAPSULE BY MOUTH ON SUNDAY, SUNDAY, SUNDAY; AND THEN 2 CAPSULES ON ALL OTHER DAYS. Follow Up/Referrals: Gaby Collins MD [Primary Care Provider] - Stand Alone Forms: [facility] Info Instructions
[2024-07-03 14:50] VITALS: TEMP 36.9
== END 2024-07-03 16:10 | disposition home or self-care (01) ==
PROVIDERS: Emergency Provider Family Medicine; PCP Family Medicine
DX: N39.0 Urinary tract infection, site not specified (principal); E87.1 Hypo-osmolality and hyponatremia
CPT/HCPCS: 36415; 80048; 80076; 81001; 83605; 85025; 86140; 87631; 99283; 99284; J7030

== ENCOUNTER 2024-08-01 12:15 | Emergency (ER) | payer MEDICARE, BC, SELFPAY ==
[2024-08-01] VITALS (12 sets, daily range): BP systolic 153–177; BP diastolic 80–120; PULSE 57–70; RESP 16–18; TEMP 36.6; O2SAT 95–99; BMI 25.6
--- NOTE | 2024-08-01 12:41 | CRLHL7_ITS ---
For Patients: As a result of the Century Cures Act, medical imaging exams and procedure reports are released immediately into your electronic medical record. You may view this report before your referring provider. If you have questions, please contact your health care provider. INDICATION: Left arm numbness TECHNIQUE: Noncontrast Sagittal T1, Axial FSE T2, Flair, DWI images submitted. COMPARISON: November 2020 brain MRI and head CT 2020 FINDINGS: The scalp and calvarium are normal. The superior sagittal sinus demonstrates normal venous flow. The corpus callosum is normal in shape and signal intensity. The posterior fossa is unremarkable. The pituitary and sella are normal. The brainstem and craniocervical junction are unremarkable. The upper cervical spinal cord and spine are normal. Diffusion weighted images reveal no hyperintensities to suggest acute cerebral infarction. Area of susceptibility abutting the posterior horn of the right lateral ventricle suggesting underlying old prior microvascular hemorrhage. The ventricles are normal in size and position without evidence of hydrocephalus. There is mild, age-appropriate generalized atrophy. The axial FLAIR images show scattered punctate hyperintensities in the deep white matter, a nonspecific finding, however most commonly seen in the setting of chronic small vessel ischemic changes. The visualized portions of the orbits, mastoids and paranasal sinuses are unremarkable. Normal flow voids are demonstrated in the carotid arteries and basilar artery. IMPRESSION: 1. No acute intracranial findings. 2. Scattered punctate hyperintensities in the deep white matter, a nonspecific finding, however most commonly seen in the setting of chronic small vessel ischemic changes. Dictated by Maksim Gonzalez MD @ 08/01/2024 1:58:28 PM (Electronically Signed)
--- NOTE | 2024-08-01 12:42 | CRLHL7_ITS ---
For Patients: As a result of the Century Cures Act, medical imaging exams and procedure reports are released immediately into your electronic medical record. You may view this report before your referring provider. If you have questions, please contact your health care provider. INDICATION: Left arm numbness. COMPARISON: 12/24/2020 TECHNIQUE: CT of the head without intravenous contrast. Please note that all CT scans at this facility use dose modulation, iterative reconstruction, and/or weight-based dosing when appropriate to reduce radiation dose to as low as reasonably achievable. FINDINGS: No acute infarct. No intracranial mass or mass effect. No intracranial hemorrhage. No hydrocephalus. Chronic unchanged bilateral cavernous, right supraclinoid and left distal M1 segment MCA atherosclerotic calcifications. Intact skull base and cranial vault. Visualized orbits are without significant incidental findings. Bilateral lens implants. Visualized paranasal sinuses and mastoid air cells are clear. Small right-sided bony nasal septal spur. Unremarkable soft tissues. IMPRESSION: No acute infarct, intracranial hemorrhage, mass or hydrocephalus. Incidental findings described above. Discussed with Dr. Garner at 1:15 p.m. [employer] on 08/01/2024. Please note that all CT scans at this facility use dose modulation, iterative reconstruction, and/or weight-based dosing when appropriate to reduce radiation dose to as low as reasonably achievable. Dictated by Jose Jordan MD @ 08/01/2024 1:17:50 PM (Electronically Signed)
--- NOTE | 2024-08-01 13:41 | ED.NEUROSD ---
HPI - Neuro Symptoms/Deficit General Date Seen: 08/01/24 Chief Complaint: Neuro Symptoms/Altered Deficit Stated Complaint: LT sided neck pain, LT arm tingly numb Time Seen by Provider: 08/01/24 12:17 Source: patient Mode of arrival: ambulatory Limitations: no limitations History of Present Illness HPI Narrative: Patient is a 73-year-old female presenting for low left-sided neck pain and left arm numbness. She states she has noticed the symptoms about an hour and a half ago. She has H she thought they were related to her recent workup she did about an hour prior to start of symptoms. She was concerned because she has had a previous stroke with similar left arm numbness. Did this she came to the emergency department to be evaluated. States that numbness does not seem as bad as a previous stroke. States the previous stroke the believe was caused by thrombocytosis. Symptoms resolved without intervention. No residual deficits. She denies any chest pain or shortness of breath. Does state previously she has been told they believe she has angina but head and normal stress test at that time. Has not had previous coronary angiogram. Denies lightheadedness, dizziness, vision changes, weakness. Related Data Home Medications ?Medication ?Instructions ?Recorded ?Confirmed acetaminophen 500 mg tablet 1,000 mg PO Q6-8H PRN 04/26/22 07/03/24 amlodipine 2.5 mg tablet 2.5 mg PO DAILY 04/26/22 07/03/24 ascorbic acid (vitamin C) 1,000 mg 1 g PO DAILY 04/26/22 07/03/24 tablet aspirin 81 mg tablet,delayed 81 mg PO DAILY 04/26/22 07/03/24 release clopidogrel 75 mg tablet 75 mg PO DAILY 04/26/22 07/03/24 aynzkx-[id number]-tgltykm 3 cap PO TID 04/26/22 07/03/24 36,000-114,000-180,000 unit capsule,delay rel multivitamin (Multiple Vitamins 1 tab PO QAM 04/26/22 07/03/24 tablet) pantoprazole 40 mg tablet,delayed 40 mg PO DAILY 04/26/22 07/03/24 release rosuvastatin 10 mg tablet 5 mg PO DAILY 04/26/22 07/03/24 sennosides 8.6 mg tablet 4.3 mg PO DAILY PRN 04/26/22 07/03/24 sodium chloride 1,000 mg soluble 1 mg PO BID 04/26/22 07/03/24 tablet hydroxyurea 500 mg capsule 500 mg PO DAILY 05/05/22 07/03/24 doxycycline monohydrate 100 mg 100 mg PO PRN 03/14/23 03/14/23 capsule Allergies Allergy/AdvReac Type Severity Reaction Status Date / Time ciprofloxacin Allergy Intermediate Myalgia Verified 07/03/24 12:29 doxycycline Allergy Intermediate Headache Verified 07/03/24 12:29 hydromorphone Allergy Intermediate Slurred Verified 07/03/24 12:29 speech simvastatin Allergy Intermediate MYALGIA Verified 07/03/24 12:29 oxycodone Allergy Mild Unknown Verified 07/03/24 12:29 pilocarpine Allergy Mild HEART Verified 07/03/24 12:29 RACING, BLURRED VISION promethazine Allergy Mild Unknown Verified 07/03/24 12:29 propranolol Allergy Mild Unknown Verified 07/03/24 12:29 scopolamine Allergy Mild Unknown Verified 07/03/24 12:29 Beta Adrenergic Blockers Allergy Mild Unknown Uncoded 03/14/23 08:41 Review of Systems Status of ROS: Reports: 10 or more systems reviewed and unremarkable except as noted in History and below [facility] Medical History 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.6 - Benign neoplasm of pancreas (ICD-10) GERD (gastroesophageal reflux disease) ?K21.9 - Gastro-esophageal reflux disease without esophagitis (ICD-10) Atrophic vaginitis ?N95.2 - Postmenopausal atrophic vaginitis (ICD-10) Mixed hyperlipidemia ?E78.2 - Mixed hyperlipidemia (ICD-10) Ovarian cyst ?N83.209 - Unspecified ovarian cyst, unspecified side (ICD-10) Surgical History Hx of ovarian cystectomy ?Z98.890 - Other specified postprocedural states (ICD-10) ?Z87.42 - Personal history of other diseases of the female genital tract (ICD-10) History of incisional hernia repair ?Z98.890 - Other specified postprocedural states (ICD-10) ?Z87.19 - Personal history of other diseases of the digestive system (ICD-10) Hx of cholecystectomy ?Z90.49 - Acquired absence of other specified parts of digestive tract (ICD-10) Hx of appendectomy ?Z90.49 - Acquired absence of other specified parts of digestive tract (ICD-10) History of carpal tunnel release ?Z98.890 - Other specified postprocedural states (ICD-10) Hx of reconstruction of anterior cruciate ligament tear ?Z98.890 - Other specified postprocedural states (ICD-10) History of ERCP ?Z98.890 - Other specified postprocedural states (ICD-10) 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) ?Z90.49 - Acquired absence of other specified parts of digestive tract (ICD-10) History of hysterectomy ?Z90.710 - Acquired absence of both cervix and uterus (ICD-10) Knee joint replacement status ?Z96.659 - Presence of unspecified artificial knee joint (ICD-10) 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) ?Z96.642 - Presence of left artificial hip joint (ICD-10) Social History Smoking Status: Former smoker Do you use any of these nicotine containing products: None Second hand tobacco smoke exposure: No How often do you have a drink containing alcohol: never How often do you have six or more drinks on one occasion: Never AUDIT-C Alcohol total score: 0 Non-prescribed substance use: denies use Caffeine: Yes (daily) Are you using contraception or practicing any form of control: No service: No Exam Narrative: Exam Narrative: Const: Well-nourished, Well-developed, in mild distress Eyes: PERRL, no conjunctival injection, and symmetrical lids HENT: Atraumatic external nose and ears. Moist mucous membranes. Neck: Symmetric, trachea midline, No thyromegaly. CVS: RRR, No murmurs or gallops. Peripheral pulses 2+ and equal in all extremities RESP: Unlabored respiratory effort. Clear to auscultation bilaterally. GI: Nontender/Nondistended, No rebound or guarding. MSK:Extremities w/o deformity, Normal Active ROM Skin: Warm, Dry. No rashes or lesions. Neuro: Normal Muscle tone, Cranial nerves 2-12 grossly intact, normal wfuv-yq-ovzx, normal jizxzs-fb-yewk, normal gait, normal strength 5/5 upper lower extremities bilaterally, normal sensation upper and lower extremities bilaterally other than left upper extremity, normal rapid alternating movements. NIH stroke scale 1 Psych: Awake, Alert, & Oriented x3. Appropriate mood and affect. Const: Vital Signs, click to edit/add: Vital Signs - 24 hr 08/01/24 12:19 08/01/24 13:27 08/01/24 13:30 Temperature 97.9 F Pulse Rate 59 L 60 Pulse Rate [Right Pulse Oximeter] 66 Respiratory Rate 18 Blood Pressure Blood Pressure [Ri ght Upper Arm] 177/81 H Pulse Oximetry 98 98 98 Oxygen Delivery Me thod Room Air 08/01/24 13:41 08/01/24 13:45 08/01/24 14:00 Temperature Pulse Rate 58 L 70 58 L Pulse Rate [Right Pulse Oximeter] Respiratory Rate 16 Blood Pressure 168/120 H Blood Pressure [Ri ght Upper Arm] Pulse Oximetry 99 99 98 Oxygen Delivery Me thod 08/01/24 14:02 08/01/24 14:15 08/01/24 14:42 Temperature Pulse Rate 59 L 57 L 59 L Pulse Rate [Right Pulse Oximeter] Respiratory Rate Blood Pressure 160/80 H Blood Pressure [Ri ght Upper Arm] Pulse Oximetry 98 97 95 Oxygen Delivery Me thod 08/01/24 14:45 08/01/24 15:00 08/01/24 15:02 Temperature Pulse Rate 59 L 62 62 Pulse Rate [Right Pulse Oximeter] Respiratory Rate Blood Pressure 153/81 H Blood Pressure [Ri ght Upper Arm] Pulse Oximetry 99 99 99 Oxygen Delivery Me thod Course Vital Signs Vital signs: Initial Vital Signs Temperature 97.9 F 08/01/24 12:19 Temperature Source Temporal Artery Scan 08/01/24 12:19 Pulse Rate 66 08/01/24 12:19 Respiratory Rate 18 08/01/24 12:19 Blood Pressure 177/81 H 08/01/24 12:19 Blood Pressure Mean 113 H 08/01/24 12:19 Blood Pressure Position Sitting 08/01/24 12:19 Pulse Oximetry 98 08/01/24 12:19 Oxygen Delivery Method Room Air 08/01/24 12:19 Vital Signs Temperature 97.9 F 08/01/24 12:19 Pulse Rate 66 08/01/24 12:19 Respiratory Rate 18 08/01/24 12:19 Blood Pressure 177/81 H 08/01/24 12:19 Pulse Oximetry 98 08/01/24 12:19 Oxygen Delivery Method Room Air 08/01/24 12:19 Temperature 97.9 F 08/01/24 12:19 Pulse Rate 62 08/01/24 15:02 Respiratory Rate 16 08/01/24 13:41 Blood Pressure 153/81 H 08/01/24 15:02 Pulse Oximetry 99 08/01/24 15:02 Oxygen Delivery Method Room Air 08/01/24 12:19 MDM - Neuro Symptoms/Deficit MDM Narrative Medical decision making narrative: Patient is a 73-year-old female presenting for left arm numbness and left neck pain. The numbness has occurred to her before with a previous stroke. Considering history a code stroke was called. NIH stroke scale was 1. I spoke to Dr. Aguilar of stroke Neuro and his concern for stroke with very low at this time in states she can do the CTs in outpatient MRI. I informed like we have MRI here in the that time she states she only needs the MRI and CTs are necessary. She is already getting a CT head at this time so this was done but CTA is were not done due to his recommendation. MRI was ordered. The numbness could all be related to her neck pain causing the radiculopathy after her recent workup. With neck pain though also had some concerns for ACS he has. Currently is not having any chest pain or shortness of breath I will do a CBC, BMP, troponin, EKG. Patient's BMP came back with a sodium of 128. This is consistent with the previous sodiums. Unlikely to be related to symptoms. She is aware of her hypokalemia. Her neck pain seems to be positional and her arm numbness has been improving. This makes me think this is more cervical radiculopathy. CT was done showing no concerning abnormalities. Same with her MRI. EKG and troponin showed no concerning findings and she has a normal delta trop. CBC shows no concerning abnormalities. This time she is feeling much better and I am fairly confident this is cervical radiculopathy from a recent workup causing her symptoms. She will be discharged she is agreeable to this plan. Lab Data Labs: Lab Results 11/01/24 11/01/24 Range/Units 13:36 15:36 WBC 5.42 (4.50-11.00) K/uL RBC 3.34 L (4.00-5.20) m/uL Hgb 11.7 L (12.0-16.0) gm/dL Hct 35.8 (33.0-51.0) % MCV 107 H (80-100) fL MCH 35 H (26-34) pg MCHC 33 (32-36) gm/dL RDW Coeff of Erich 11.6 (11.5-15.5) % Plt Count 336 (140-440) K/uL Neut % (Auto) 65.2 (42.0-72.0) % Lymph % (Auto) 21.0 (20-44) % Moca % (Auto) 11.4 H (0.0-11.0) % Eos % (Auto) 1.3 (0.0-7.0) % Baso % (Auto) 0.9 (0.0-3.0) % Neut # (Auto) 3.53 (1.7-7.0) K/uL Lymph # (Auto) 1.14 (0.90-2.90) K/uL Moca # (Auto) 0.60 (0.00-0.90) K/UL Eos # (Auto) 0.07 (0.00-0.50) K/uL Baso # (Auto) 0.05 (0.00-0.30) K/uL Abs Immat Gran (auto) 0.01 (0.00-0.30) K/uL Imm/Tot Granulo (auto) 0.2 % Sodium 128 L (135-149) mmol/L Potassium 3.8 (3.6-5.1) mmol/L Chloride 95 L (96-114) mmol/L Carbon Dioxide 27 (20-32) mmol/L Anion Gap 6 L (7-15) mEq/L BUN 18 (7-30) mg/dL Creatinine 0.5 (0.5-1.5) mg/dL Estimated Creat Clear 38.44 Estimated GFR 98 ml/min Glucose 81 (60-115) mg/dL Calcium 8.8 (8.4-10.6) mg/dL POC Troponin I 0.01 0.01 (0.01-0.04) ng/ml Imaging Data CT scan - head: Attestation: I have reviewed the pertinent imaging results. Radiologist's impression: No acute infarct, intracranial hemorrhage, mass or hydrocephalus. Incidental findings described above. Discussed with Dr. Garner at 1:15 p.m. [employer] on 08/01/2024. Please note that all CT scans at this facility use dose modulation, iterative reconstruction, and/or weight-based dosing when appropriate to reduce radiation dose to as low as reasonably achievable. Dictated by Jose Jordan MD @ 08/01/2024 1:17:50 PM MR Brain: Attestation: I have reviewed the pertinent imaging results. Radiologist's impression: 1. No acute intracranial findings. 2. Scattered punctate hyperintensities in the deep white matter, a nonspecific finding, however most commonly seen in the setting of chronic small vessel ischemic changes. Dictated by Maksim Gonzalez MD @ 08/01/2024 1:58:28 PM ECG Data Attestation: I personally reviewed and interpreted this ECG as follows: Prior ECG tracings: not available for review Interpretation: Sinus bradycardia with a rate of 56 beats per minute, normal intervals, normal axis, no ST or T-wave abnormalities Discharge Plan Discharge Clinical Impression: Cervical radiculopathy Instructions: Cervical Radiculopathy (ED) Additional Instructions: I believe the symptoms are all coming from your neck and should improve with time. If they persist follow-up with her primary care provider. If you start developing new or worsening symptoms return for evaluation. Prescriptions: No Action clopidogrel 75 mg tablet 75 mg PO DAILY acetaminophen 500 mg tablet 1,000 mg PO Q6-8H PRN aspirin 81 mg tablet,delayed release (DR/EC) 81 mg PO DAILY sennosides 8.6 mg tablet 4.3 mg PO DAILY PRN Rx Instructions: Hold if experiencing loose stools. multivitamin [Multiple Vitamins] Tablet 1 tab PO QAM pantoprazole 40 mg tablet,delayed release (DR/EC) 40 mg PO DAILY amlodipine 2.5 mg tablet 2.5 mg PO DAILY rosuvastatin 10 mg tablet 5 mg PO DAILY [id number]-pbheylt 36,000-114,000- 180,000 unit capsule,delayed release(DR/EC) 3 cap PO TID Rx Instructions: AND ONE CAPSULE WITH SNACKS, NOT TO EXCEED 9 CAPS PER DAY. sodium chloride 1,000 mg tablet,soluble 1 mg PO BID ascorbic acid (vitamin C) 1,000 mg tablet 1 g PO DAILY doxycycline monohydrate 100 mg capsule 100 mg PO PRN hydroxyurea 500 mg capsule 500 mg PO DAILY Patient Comments: TAKE 1 CAPSULE BY MOUTH ON SUNDAY, SUNDAY, SUNDAY; AND THEN 2 CAPSULES ON ALL OTHER DAYS. Follow Up/Referrals: Gaby Collins MD [Primary Care Provider] - Stand Alone Forms: [employer] Info Instructions
--- OUTSIDE RECORDS SUMMARY | 2024-08-01 13:52 | XMS_ITS | Clinical Summary ---
Author Organization [employer] [facility] Address [place], [place] [address] Care Team Providers Care Manpower Development Advisor Name Role Phone Gaby Collins MD Primary Care Provide r Lenny Hernandez MD Unavailable Vonnie Barragan MD Unavailable Unavailable David Jorgensen MD Unavailable Parisa Phillips MD Unavailable Lizzette Batista AIRCRAFT INSTRUMENT REPAIRER Unavailable Mirtha Petty NP Unavailable [phone] Allergies Active Allergy Reactions Criticality Noted [...] Dispensed Refills Start Date End Date Status srsfc-9-WLN-EPA-fi sh oil (FISH OIL) 300-1,000 mg capsule [...] once daily if needed. 0 2 Active sodium chloride 1,000 mg soluble tabletIndications: Hyponatremia Take 1 Tablet (1 g) by mouth once daily. 90 Tablet 3 3 Active rosuvastatin (CRESTOR) 5 mg tabletIndications: Ischemic embolic stroke (HC) Take 1 Tablet (5 mg) by mouth at bedtime. 90 Tablet 3 4 Active vzawyu-mxkacsrr-wo ylase (Creon) 36,000-114,000- 180,000 unit capsuleIndications :Pancreatic [...] A MEAL. 90 Tablet 2 4 Active amoxicillin (AMOXIL) 500 mg capsule Take 4 capsules (2000mg) 1 hour prior to dental appointment 2 07/17/20 24 Discontinue d(*Patient states no longer taking) nitrofurantoin macrocrystals/mono hydrate (MACROBID) 100 mg capsuleIndications :UTI (urinary tract infection), uncomplicated Take 1 Capsule (100 mg) by mouth two times daily for 5 days. 10 Capsule 4 07/05/20 24 Active Problems Problem Noted Date Diagnosed [...] Ascending Cholangitis 12/02/2019 10/13/2020 Perimenopausal disorder 06/01/2009 0911/2009 Acute postoperative pain Encounters Date Type Department Care Team Description 08/01/2024 Nurse Triage [facility] [address] [place] [address] Gaby Collins MD Numbness (Left arm); Jaw Pain (left) 08/01/2024 Telephone [facility] [address] [place] [address] Gaby Collins MD 07/21/2024 Telephone [facility] [address] [place] [address] Gaby Collins MD Results 07/17/2024 9:05 AM CDT Office Visit [facility] [address] [place] [address] Gaby Collins MD ER Follow up (Seen 07/03 in ED, symtoms of UTI had resolved and no IV antibiotics were needed. Was instructed to repeat labs on sodium level./[place] like it might be back today, UA); Derm Problem (Very dry skin); Numbness (In the feet, whom to see) 07/17/2024 Travel 07/03/2024 Telephone [place] [address] [place] [address] Gaby Collins MD Questions (ER follow up) 07/02/2024 Telephone [facility] [address] [place] [address] Gaby Collins MD UTI 06/30/2024 Telephone [facility] [address] [place] [address] Gaby Collins MD Questions 06/30/2024 Telephone [facility] [address] [place] [address] Vishal Rivers MD Questions 06/26/2024 4:35 PM CDT Office Visit [address] [address] Vishal Rivers MD Urinary Problem (Burning, pressure, frequency, low grade temperature, x 3 days) 06/26/2024 Travel 05/22/2024 1:00 PM CDT Office Visit [facility] [address] [place] [address] Parisa Phillips MD Follow Up (Thrombocythemia//) 05/22/2024 Travel 05/19/2024 7:30 AM CDT Orders Only [facility] [address] [place] [address] Lab, [place] Lab 05/19/2024 Travel 05/09/2024 Orders Only [facility] [address] [place] [address] [address] Nash Huber MD <No scans attached> from Last 3 Months Immunizations Name Administration [...] 0 09/27/2023 Social Connections Answer Date Recorded Do you often feel lonely or isolated from those around you? 0 12/10/2023 Financial Resource Strain Answer Date R ecorded Difficulty of Paying Living Expenses 3 04/05/2023 Difficulty of Paying Living Expenses Not on file 04/05/2023 Food Insecurity Answer Date Recorded Do you worry your food will run out before you are able to buy more? 1 12/10/2023 Transportation Needs Answer Date Record ed Does lack of transportation keep you from medica l appointments? 1 12/10/2023 Does lack of transportation keep you from work, meetings or getting things that you need? 1 12/10/2023 Housing Stability Answer Date Recorded What is your housing situation today? 1 12/10/2023 Sex and Gender Information Value Date Recorded [...] Sign Reading Time Taken Comments Blood Pressure 121/77 07/17/2024 9:27 AM CDT Pulse 72 07/17/2024 9:27 AM CDT Temperature 36.7 ??C (98 ??F) 06/26/2024 4:38 PM CDT Respiratory Rate 14 05/22/2024 12:56 PM CDT Oxygen Saturation 97% 07/17/2024 9:27 AM CDT Inhaled Oxygen Concentration - - Weight 65.3 kg (144 lb) 07/17/2024 9:27 AM CDT Height 158.8 cm (5' 2.5) 06/26/2024 4:38 PM CDT Body Mass Index 25.92 06/26/2024 4:38 PM CDT Plan of Treatment Upcoming Encounters Date Type Department Care Team (Late st Contact Info) Description 09/15/2024 7:00 AM PLANER HAND Orders Only [facility] [address] [place] [address] Lab, [place] 09/16/2024 10:15 AM PLANER HAND Office Visit [facility] [address] [place] [address] Lizzette Batista, AIRCRAFT INSTRUMENT REPAIRER [address] [place] [address] 10/27/2024 9:00 AM PLANER HAND Appointment [facility] [address] [place] [address] 11/03/2024 9:00 AM PLANER HAND Office Visit [facility] [address] [place] [address] Lenny Hernandez MD [address] [facility] [address] [place] [address] Health Maintenance Due Date Last Done Comments [...] Lloyd LPN Medical Devices Implanted Type Area Flight Purser Device Identifier Shelf Expiration Date Model / Serial / Lot Mesh Ventral 4x6in Ventralightst - [id number] Implanted:Qty: 1 on 02/25/2020 by Lenny Hernandez MD at [employer] 09/27/2021 [id number] / / [id number] Stent Biliary [id number] Viabil No Hole - [id number] Implanted:Qty: 1 on 04/28/2020 by David Jorgensen MD at [employer] [id number] / / [id number] Mesh Ventral 4x6in Ventralight St - [id number] Implanted:Qty: 1 on 05/27/2021 by Lenny Hernandez MD at [employer] 03/28/2022 [id number] / / [id number] Stent Biliary [id number] Viabil No Hole - [id number] Implanted:Qty: 1 on 07/08/2021 by David Jorgensen MD at [employer] 01/31/2024 [id number] / [id number] / [id number] Stent Biliary [id number] Viabil No Hole - [id number] Implanted:Qty: 1 on 08/30/2021 by David Jorgensen MD at [employer] 11/30/2023 [id number] / / [id number] Procedures Procedure Name Priority Date/Time Associated Diagnosis Comments BASIC METABOLIC PANEL Routine 07/17/2024 10:51 AM CDT Hyponatremia VITAMIN B12 Routine 07/17/2024 10:51 AM CDT Tingling of both feet TSH WITH REFLEX Routine 07/17/2024 10:48 AM CDT Loose stools Hyponatremia Tingling of both feet URINE CULTURE Routine 07/17/2024 10:06 AM CDT UTI (urinary tract infection), uncomplicated URINALYSIS MACROSCOPIC - [facility] ONLY POC DIP ([facility]) Routine 07/17/2024 10:04 AM CDT UTI (urinary tract infection), uncomplicated URINE CULTURE Routine 06/26/2024 5:08 PM CDT Dysuria URINALYSIS MACROSCOPIC - [facility] ONLY POC DIP ([facility]) Routine 06/26/2024 4:35 PM CDT Dysuria CBC WITH AUTO DIFFERENTIAL Routine 05/19/2024 7:27 AM CDT Thrombocythemia HEPATIC FUNCTION PANEL Routine 05/19/2024 7:27 AM CDT Thrombocythemia CBC WITH AUTO DIFFERENTIAL Routine 05/19/2024 7:27 AM CDT Thrombocythemia BASIC METABOLIC PANEL Routine 05/19/2024 7:27 AM CDT Thrombocythemia LIPID PANEL W REFLEX MEASURED LDL Routine 08/30/2022 11:20 AM PLANER HAND Hyperlipidemia, unspecified hyperlipidemia type XR DXA BONE DENSITY 2 SITES AXIAL Routine 05/08/2022 8:38 AM CDT Menopause ANTI HCV Routine 02/19/2020 9:00 AM CDT Encounter for hepatitis C screening test for low risk patient COLONOSCOPY 05/06/2019 11:11 AM CDT from Last 3 Months or Most Recently Relevant to Health Maintenance Results * VITAMIN B12 (07/17/2024 10:51 AM CDT) VITAMIN B12 688 200 - 1,100 pg/mL [facility] Blood BLOOD SPECIMEN / Unknown 07/17/2024 10:51 AM CDT 07/17/2024 10:52 AM CDT Gaby Collins MD CHEMISTRY [facility] [address] [place] [address], [facility] [address] [place] [address] * (ABNORMAL) BASIC METABOLIC PANEL (07/17/2024 10:51 AM CDT) Only the most recent of2 resultswithin the time period is included. GLUCOSE 77 65 - 99 mg/dL [facility] Comment: ? Fasting reference interval UREA NITROGEN (BUN) 18 7 - 25 mg/dL [facility] CREATININE 0.55(L) 0.60 - 1.00 mg/dL [facility] EGFR 96 > OR = 60 mL/min/1.7 3m2 [facility] BUN/CREATININE RATIO 33(H) 6 - 22 (calc) [facility] SODIUM 133(L) 135 - 146 mmol/L [facility] POTASSIUM 4.5 3.5 - 5.3 mmol/L [facility] CHLORIDE 98 98 - 110 mmol/L [facility] CARBON DIOXIDE 29 20 - 32 mmol/L [facility] ELECTROLYTE BALANCE 6(L) 7 - 17 mmol/L (calc) [facility] CALCIUM 9.5 8.6 - 10.4 mg/dL [facility] Blood BLOOD SPECIMEN / Unknown 07/17/2024 10:51 AM CDT 07/17/2024 10:52 AM CDT Gaby Collins MD CHEMISTRY [facility] [address] [place] [address], [place] [phone] [facility] [address] [place] [address] * TSH WITH REFLEX (07/17/2024 10:48 AM CDT) TSH W/REFLEX TO FT4 0.71 0.40 - 4.50 mIU/L [facility] Blood BLOOD SPECIMEN / Unknown 07/17/2024 10:48 AM CDT 07/17/2024 10:50 AM CDT Gaby Collins MD CHEMISTRY [facility] [address] [place] [address], [place] [phone] [facility] [address] [place] [address] * URINE CULTURE (07/17/2024 10:06 AM CDT) Only the most recent of2 resultswithin the time period is included. CULTURE, URINE, ROUTINE SEE NOTE [facility] Comment: ??CULTURE, URINE, ROUTINE ?Micro Number: ?[id number] ??Test Status: ? Final ??Specimen Source: ?? Urine, clean catch ??Specimen Quality: ??Adequate ??Result: ?Mixed genital hany isolated. These superficial ? bacteria are not indicative of a urinary tract ? infection. No further organism identification is ? warranted on this specimen. If clinically ? indicated, recollect clean-catch, mid-stream ? urine and transfer immediately to Urine Culture ? Transport Tube. Urine URINE SPECIMEN / Unknown 07/17/2024 10:06 AM CDT 07/17/2024 10:06 AM CDT Gaby Collins MD MICROBIOLOGY Performing Organization Address City/State/[facility] Co de Phone Number [employer] [address] [place] [address], [facility] [address] [place] [address] * (ABNORMAL) POCT Urinalysis Dipstick Only (07/17/2024 10:04 AM CDT) Only the most recent of2 resultswithin the time period is included. PH 5.5 5.0 - 8.0 [facility] SPECIFIC GRAVITY 1.025 1.001 - 1.035 [facility] GLUCOSE NEGATIVE NEGATIVE [facility] BILIRUBIN NEGATIVE NEGATIVE [facility] KETONES TRACE(A) NEGATIVE [facility] OCCULT BLOOD NEGATIVE NEGATIVE [facility] PROTEIN TRACE(A) NEGATIVE [facility] NITRITE NEGATIVE NEGATIVE [facility] LEUKOCYTE ESTERASE TRACE(A) NEGATIVE [facility] Urine URINE SPECIMEN / Unknown 07/17/2024 10:04 AM CDT 07/17/2024 10:05 AM CDT Gaby Collins MD URINE [facility] [address] [place] [address], [facility] [address] [place] [address] * (ABNORMAL) CBC WITH AUTO DIFFERENTIAL (05/19/2024 7:27 AM CDT) WHITE BLOOD COUNT 5.2 4.5 - 11.0 thou/cu mm 05/19/2024 7:31 AM CDT [facility] RED BLOOD COUNT 3.62(L) 4.00 - 5.20 mil/cu mm 05/19/2024 7:31 AM CDT [facility] HEMOGLOBIN 12.8 12.0 - 16.0 g/dL 05/19/2024 7:31 AM CDT [facility] HEMATOCRIT 37.4 33.0 - 51.0 % 05/19/2024 7:31 AM CDT [facility] MCV 103(H) 80 - 100 fL 05/19/2024 7:31 AM CDT [facility] MCH 35.4(H) 26.0 - 34.0 pg 05/19/2024 7:31 AM CDT [facility] MCHC 34.2 32.0 - 36.0 g/dL 05/19/2024 7:31 AM CDT [facility] RDW 13.4 11.5 - 15.5 % 05/19/2024 7:31 AM CDT [facility] PLATELET COUNT 433 140 - 440 thou/cu mm 05/19/2024 7:31 AM CDT [facility] MPV 8.7 6.5 - 11.0 fL 05/19/2024 7:31 AM CDT [facility] % NEUT 66.4 % 05/19/2024 7:31 AM CDT [facility] % LYMPH 21.6 % 05/19/2024 7:31 AM CDT [facility] % MONO 9.5 % 05/19/2024 7:31 AM CDT [facility] % EOS 1.7 % 05/19/2024 7:31 AM CDT [facility] % BASO 0.8 % 05/19/2024 7:31 AM CDT [facility] ABSOLUTE NEUTROPHILS 3.5 1.7 - 7.0 thou/cu mm 05/19/2024 7:31 AM CDT [facility] ABSOLUTE LYMPHOCYTES 1.1 0.9 - 2.9 thou/cu mm 05/19/2024 7:31 AM CDT [facility] ABSOLUTE MONOCYTES 0.5 <0.9 thou/cu mm 05/19/2024 7:31 AM CDT [facility] ABSOLUTE EOSINOPHILS 0.1 <0.5 thou/cu mm 05/19/2024 7:31 AM CDT [facility] ABSOLUTE BASOPHILS 0.0 <0.3 thou/cu mm 05/19/2024 7:31 AM CDT [facility] Blood BLOOD SPECIMEN / Unknown Venipuncture / Unknown 05/19/2024 7:27 AM CDT 05/19/2024 7:27 AM CDT Narrative [facility] - 05/19/2024 7:31 AM CDT This procedure was originally ordered at [facility]. Lizzette Batista NP HEMATOLOGY [facility] [address] [place] [address], [place] [phone] * (ABNORMAL) HEPATIC FUNCTION PANEL (05/19/2024 7:27 AM CDT) ALBUMIN 4.0 4.0 - 4.9 g/dL 05/19/2024 1:52 PM CDT [facility] PROTEIN,TOTAL 6.8 6.0 - 8.0 g/dL 05/19/2024 1:52 PM CDT [facility] BILIRUBIN,TOTAL 0.3 0.0 - 1.2 mg/dL 05/19/2024 1:52 PM CDT [facility] BILIRUBIN,DIRECT 0.2 0.0 - 0.2 mg/dL 05/19/2024 1:52 PM CDT [facility] BILIRUBIN,INDIRE CT 0.1(L) 0.2 - 0.8 mg/dL 05/19/2024 1:52 PM CDT [facility] ALK PHOSPHATASE 120(H) 35 - 104 IU/L 05/19/2024 1:52 PM CDT [facility] ALT (SGPT) 20 10 - 35 IU/L 05/19/2024 1:52 PM T [facility] AST (SGOT) 33 10 - 35 IU/L 05/19/2024 1:52 PM CDT [facility] Blood BLOOD SPECIMEN / Unknown Venipuncture / Unknown 05/19/2024 7:27 AM CDT 05/19/2024 7:27 AM CDT Lizzette Batista NP CHEMISTRY [facility] [address] [place] [address] * LIPID PANEL W REFLEX MEASURED LDL (08/30/2022 11:20 AM PLANER HAND) CHOLESTEROL,TOTAL 118 100 - 199 mg/dL 09/01/2022 12:12 AM PLANER HAND [facility] TRIGLYCERIDES 62 <150 mg/dL 09/01/2022 12:12 AM PLANER HAND [facility] HDL CHOLESTEROL 46 >40 mg/dL 12:12 AM PLANER HAND [facility] NON-HDL CHOLESTEROL 72 <145 mg/dl 09/01/2022 12:12 AM [facility] [employer] CHOL/HDL RATIO 2.57 <4.50 09/01/2022 12:12 AM PLANER HAND [facility] [employer] [facility] LDL CHOLESTEROL 60 <=130 mg/dL 09/01/2022 12:12 AM [facility] VLDL CHOLESTEROL 12 <=30 mg/dL 09/01/2022 12:12 AM PLANER HAND [facility] PROVIDER ORDERED STATUS RANDOM 09/01/2022 12:12 AM PLANER HAND [facility] Blood BLOOD SPECIMEN / Unknown Venipuncture / Unknown 08/30/2022 11:20 AM PLANER HAND 08/30/2022 11:23 AM [facility] Gaby Collins MD CHEMISTRY [facility] [address] [place] [address], * (ABNORMAL) XR DXA BONE DENSITY 2 [...] Patients: Results are automatically released to your [employer] account once available, in compliance with federal regulations. This means that you may see your results before your provider has had a chance to review them. Please allow 2-3 business days for your provider to comment on the results. XR DXA Bone Mineral Density (BMD) EXAM LOCATION: [facility] [address] [facility] [id number] PATIENT NAME: Malinda Putnam DATE OF : [...] two scanners are made by the same churn drill operator. PROCEDURE: Dual-energy x-ray absorptiometry performed with routine [...] alexandre Non-React alexandre 02/19/2020 2:14 PM CDT [facility] Comment:Antibodies to HCV no t detected; does not exclude the possibility of exposure to HCV. Blood BLOOD SPECIMEN / Unknown Venipuncture / Unknown 02/19/2020 9:00 AM CDT 02/19/2020 9:00 AM CDT Gaby Collins MD SEND OUTS [facility] [address] [place] [address], [place] * COLONOSCOPY (05/06/2019 11:11 AM CDT) [...] candidate for conscious sedation. The Colon CF-[id number] [id number] was passed through the anus and advancedto [...] reponse to care. Please refer to the patien'ts medical record flowsheets and nursing notes for moderate sedation details. Total physician intraservice time was 21 minutes. Nash Huber MD 05/06/2019 12:16:17 PM This report has been signed electronically. Note Initiated On: 05/06/2019 11:11 AM Procedure Code(s): --- Professional --- 36018, Colonoscopy, flexible; with biopsy, single or multiple Diagnosis Code(s): --- Professional --- Z86.010, Personal history of colonicpolyps D12.3, Benign neoplasm of transverse colon (hepatic flexure or splenic flexure) K57.30, Diverticulosis of large intestine without perforation or abscess withoutbleeding Q43.8, Other specified congenitalmalformations of intestine CPT copyright 2018 [employer]. All rights reserved. The codes documented in this report are preliminary and upon soda flaker reviewmay be revised to meet current compliance requirements. Scope In: 11:52:56 AM Scope Withdrawal Time 0 hours 8 minutes 34 seconds Scope Out: 12:11:25 PM Nash Huber MD PROCEDURE ORD from Last 3 Months or Most Recently Relevant to Health Maintenance Additional Health Concerns Infection Onset Date Last Indicated Rule-Out C.diff 07/17/2024 07/17/2024 Advance Directives * Full Code (Latest Code [...] Code Status Discussion: Not Discussed Care Teams Manpower Development Advisor Relationship Specialty Start Date End Date Gaby Collins MD [address] [place] [address] PCP - General Family Practice 07/15/19 Lenny Hernandez MD [address] [place] [address] Consulting Physician Surgery - General 11/29/19 Vonnie Barragan MD Hepatobiliary and Pancreatic Surgery Resident 02/25/20 [place] [address] [place] [address] Gastroenterology Gastroenterology 05/20/20 Parisa Phillips MD [address] [place] [address] Hematology Hematology and Oncology 11/30/20 Lizzette Batista, AIRCRAFT INSTRUMENT REPAIRER [address] [place] [address] Hematology Nurse Practitioner - Family 11/30/20 Mirtha Petty NP [address] [place] [address] Nurse Practitioner - Gerontology 09/22/23
--- OUTSIDE RECORDS SUMMARY | 2024-08-01 13:52 | XMS_ITS | Referral Summary ---
Author Organization [facility] Address [address] [place] [address] Care Team Providers Care Cellars Supervisor Name Role Phone Gaby Collins Primary Care Provider [phone] Allergies Active Allergy Reactions Criticality Noted Date [...] Simvastatin Other (See Comments) 06/01/2015 Myalgia Medications CALCIUM 500 SUPPLEMENT 1250 MG OR CHEW 0 4 Active GLUCOSAMINE SULFATE PO Take 1,000 mg by mouth daily Active calcium carbonate (TUMS) 500 MG chewable tablet Take 1 chew tab by mouth daily as needed for heartburn Active Multiple Vitamins-Minera ls (MULTIVITAMIN & MINERAL PO) Take 1 tablet by mouth daily Active famotidine (PEPCID) 20 MG tablet Take 20 mg by mouth 7 Active minocycline (MINOCIN/DYNACI N) 50 MG capsule Take 50 mg by mouth 9 Active LORazepam (ATIVAN) 0.5 MG tablet Take 0.5 mg by mouth 8 Active fish oil-omega-3 fatty acids 1000 MG [...] School Help Needed Not on file 07/24 Comments No Sex and Gender Information Value Date Recorded Sex Assigned at Not on file Legal Sex Female 3:36 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 Gender Identity Not on file Sexual Orientation [...] on file Medical Devices Implanted Type Area Remarketing Rep Device Identifier Shelf Expiration Date Model / Serial / Lot Bone Cement Simplex Full Dose [id number] Implanted:Qty: 2 on 06/01/2015 by Perfecto Dailey MD at [facility] Right: Knee [employer] 01/23/2017 [id number] / / [id number] Imp Baseplate Tibial Howm Tri 3 5520-B-300 Implanted:Qty: 1 on 06/01/2015 by Perfecto Dailey MD at [facility] Right: Knee [employer] 11/25/2019 5520-B-300 / / [id number] Imp Comp Fem Strk Triathln Cr Rt 4 5510-F-402 Implanted:Qty: 1 on 06/01/2015 by Perfecto Dailey MD at [facility] Right: Knee [employer] 03/25/2020 5510-F-402 / / [id number] Imp Comp Patella Tri X3 Ps 31x9mm Implanted:Qty: 1 on 06/01/2015 by Perfecto Dailey MD at [facility] Right: Knee [employer] 01/24/2020 5550-G-319 / / [id number] Imp Insert Tibial Howm Tri 3x11mm 5530-G-[id number] Implanted:Qty: 1 on 06/01/2015 by Perfecto Dailey MD at [facility] Right: Knee [employer] 03/25/2020 5530-G-311 / / [id number] Insurance MEDICARE [facility] Advance Directives For more information, please contact: [phone] * Full Code (Latest Code Status on File) Date Activated Date Inactivated Comments 06/03/2015 5:00 PM 05/20/2019 7:33 AM * Full Code Date Activated Date Inactivated Comments 06/01/2015 12:47 PM 06/03/2015 5:00 PM * No Code Status Date Activated Date Inactivated Comments 07/29/2004 2:53 PM 07/29/2004 2:53 PM Care Teams Cellars Supervisor Relationship Specialty Start Date End Date Gaby Collins PCP - General Family Practice 08/11/13
--- OUTSIDE RECORDS SUMMARY | 2024-08-01 13:52 | XMS_ITS | Clinical Summary ---
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 Gender Identity Not on file Sexual Orientation [...] on file Medical Devices Implanted Type Area Tree Surgeon Helper Device Identifier Shelf Expiration Date Model / Serial / Lot Bone Cement Simplex Full Dose 6191-1-001 Implanted:Qty: 2 on 06/01/2015 by Perfecto Dailey MD at [facility] Right: Knee [employer] 01/23/2017 6191-1-001 / / [id number] Imp Baseplate Tibial Howm Tri 3 5520-B-300 Implanted:Qty: 1 on 06/01/2015 by Perfecto Dailey MD at [facility] Right: Knee [employer] 11/25/2019 5520-B-300 / / MSSMD Imp Comp Fem Strk Triathln Cr Rt 4 0210-F-402 Implanted:Qty: 1 on 06/01/2015 by Perfecto Dailey MD at [facility] Right: Knee [employer] 03/25/2020 5510-F-402 / / [id number] Imp Comp Patella Tri X3 Ps 31x9mm Implanted:Qty: 1 on 06/01/2015 by Perfecto Dailey MD at [facility] Right: Knee [employer] 01/24/2020 5550-G-319 / / [id number] Imp Insert Tibial Howm Tri 3x11mm 5530-G-311 Implanted:Qty: 1 on 06/01/2015 by Perfecto Dailey MD at [facility] Right: Knee [employer] 03/25/2020 5530-G-311 / / [id number] [id number] [facility] [employer] Advance Directives For more information, please contact: [phone] * Full Code (Latest Code Status on File) Date Activated Date Inactivated Comments 06/03/2015 5:00 PM 05/20/2019 7:33 AM * Full Code Date Activated Date Inactivated Comments 06/01/2015 12:47 PM 06/03/2015 5:00 PM * No Code Status Date Activated Date Inactivated Comments 07/29/2004 2:53 PM 07/29/2004 2:53 PM Care Teams Md Pediatric Allergist Relationship Specialty Start Date End Date Gaby Collins PCP - General Family Practice 08/11/13
[2024-08-01 13:55] LABS: Basophils Absolute Auto 0.05 K/uL (0.00-0.30); Basophils Percent Auto 0.9 % (0.0-3.0); Eosinophils Absolute Auto 0.07 K/uL (0.00-0.50); Eosinophils Percent Auto 1.3 % (0.0-7.0); Hematocrit 35.8 % (33.0-51.0); Hemoglobin* 11.7 gm/dL (12.0-16.0); Immature Granulocytes Abs Auto 0.01 K/uL (0.00-0.30); Immature Granulocytes Pct Auto 0.2 %; Lymphocytes Absolute Auto 1.14 K/uL (0.90-2.90); Mean Corpuscular HGB Conc 33 gm/dL (32-36); Mean Corpuscular Hemoglobin 35 pg (26-34); Mean Corpuscular Volume 107 fL (80-100); Monocytes Percent Auto 11.4 % (0.0-11.0); Neutrophils Absolute Auto 3.53 K/uL (1.7-7.0); Neutrophils Percent Auto 65.2 % (42.0-72.0); Platelet Count* 336 K/uL (140-440); RDW Coefficient of Variation % 11.6 % (11.5-15.5); Red Blood Count 3.34 m/uL (4.00-5.20); White Blood Count* 5.42 K/uL (4.50-11.00)
[2024-08-01 14:01] LABS: Troponin, Point-of-Care* 0.01 ng/ml (0.01-0.04)
[2024-08-01 14:06] LABS: Slide Review Reflex No
[2024-08-01 14:21] LABS: Chloride* 95 mmol/L (96-114); Potassium* 3.8 mmol/L (3.6-5.1); Sodium* 128 mmol/L (135-149)
[2024-08-01 14:24] LABS: Anion Gap 6 mEq/L (7-15); Blood Urea Nitrogen* 18 mg/dL (7-30); Carbon Dioxide* 27 mmol/L (20-32); Creatinine* 0.5 mg/dL (0.5-1.5); Est. Creatinine Clearance* 38.44; Estimated Glomerular Filt Rate 98 ml/min; Glucose* 81 mg/dL (60-115)
[2024-08-01 14:25] LABS: Calcium* 8.8 mg/dL (8.4-10.6)
[2024-08-01 15:49] LABS: Troponin, Point-of-Care* 0.01 ng/ml (0.01-0.04)
== END 2024-08-01 16:23 | disposition home or self-care (01) ==
PROVIDERS: Emergency Provider Student in an Organized Health Care Education/Training Program; PCP Family Medicine
DX: M54.12 Radiculopathy, cervical region (principal)
CPT/HCPCS: 36415; 70450; 70551; 80048; 84484; 85025; 93005; 99283; 99284; 99285

== ENCOUNTER 2024-10-26 08:50 | Outpatient (CLI) | payer MEDICARE, BC, SELFPAY | END 2024-10-26 08:51 | disposition home or self-care (01) | LOC: NFLDREF 11-03 00:19 | PROVIDERS: PCP Family Medicine; Referring Provider Family Medicine; Visit Provider Family Medicine | DX: R39.9 Unspecified symptoms and signs involving the genitourinary system (principal); N39.0 Urinary tract infection, site not specified | CPT/HCPCS: 87086 ==

== ENCOUNTER 2024-12-27 16:28 | Emergency (ER) | payer MEDICARE, BC, SELFPAY ==
--- OUTSIDE RECORDS SUMMARY | 2024-12-27 16:31 | XMS_ITS | Clinical Summary ---
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 Gender Identity Not on file Sexual Orientation Not on file Last Filed Vital Signs Vital Sign Reading Time Taken Comments Blood Pressure 134/66 05/20/2019 10:30 AM CDT Pulse 60 05/20/2019 10:30 AM CDT Temperature 36.6 C (97.8 F) 06/04/2015 8:12 AM CDT Respiratory Rate 15 05/20/2019 10:30 AM CDT Oxygen Saturation 100% 05/20/2019 10:30 AM CDT Inhaled Oxygen Concentration - - Weight 76.2 kg (168 lb) 05/20/2019 8:00 AM CDT Height 158.8 cm (5' 2.5) 05/20/2019 8:00 AM CDT Body Mass Index 30.24 05/20/2019 8:00 AM CDT Plan of Treatment Not on file Medical Devices Implanted Type Area Aerial Tram Operator Device Identifier Shelf Expiration Date Model / Serial / Lot Bone Cement Simplex Full Dose 6191-1-001 Implanted:Qty: 2 on 06/01/2015 by Perfecto Dailey MD at [facility] Right: Knee [employer] 01/23/2017 6191-1-001 / / [id number] Imp Baseplate Tibial Howm Tri 3 5520-B-300 Implanted:Qty: 1 on 06/01/2015 by Perfecto Dailey MD at [facility] Right: Knee [employer] 11/25/2019 5520-B-300 / / MSSMD Imp Comp Fem Strk Triathln Cr Rt 4 7310-F-402 Implanted:Qty: 1 on 06/01/2015 by Perfecto Dailey MD at [facility] Right: Knee [employer] 03/25/2020 5510-F-402 / / [id number] Imp Comp Patella Tri X3 Ps 31x9mm Implanted:Qty: 1 on 06/01/2015 by Perfecto Dailey MD at [facility] Right: Knee [employer] 01/24/2020 5550-G-319 / / [id number] Imp Insert Tibial Howm Tri 3x11mm 5530-G-311 Implanted:Qty: 1 on 06/01/2015 by Perfecto Dailey MD at [facility] Right: Knee [employer] 03/25/2020 5530-G-311 / / [id number] Insurance MEDICARE [facility] Advance Directives For more information, please contact: [phone] * Full Code (Latest Code Status on File) Date Activated Date Inactivated Comments 06/03/2015 5:00 PM 05/20/2019 7:33 AM * Full Code Date Activated Date Inactivated Comments 06/01/2015 12:47 PM 06/03/2015 5:00 PM * No Code Status Date Activated Date Inactivated Comments 07/29/2004 2:53 PM 07/29/2004 2:53 PM Care Teams Jointer Machine Operator Relationship Specialty Start Date End Date Gaby Collins PCP - General Family Practice 08/11/13
--- OUTSIDE RECORDS SUMMARY | 2024-12-27 16:31 | XMS_ITS | Continuity of Care Document ---
Author Organization [facility] Address [address] [address] [place] [address] Phone Care Team Providers Care Complex Case Manager Name Role Phone Veronika Moyer CRNA Unavailable Unavailable Allergies, Adverse Reactions, Alerts Substance Reaction Status Criticality OXYCODONE HCL Nausea/Vomiting Active No Informat ion acetaminophen Nausea/Vomiting Active No Informat ion sulfamethizole Joint pain Active No Informatio n CIPROFLOXACIN HCL Joint pain Active No Informa tion OXYCODONE HCL Nausea/Vomiting Active No Informat ion acetaminophen Nausea/Vomiting Active No Informat ion ciprofloxacin Joint pain Active No Information scopolamine blurred vision Active No Informatio n PROPRANOLOL HCL heart palpatations Active No Inf ormation PILOCARPINE HCL heart palpatations Active No Inf ormation Medications Medication Instructions Dosage Effective Dates (start - stop) Status Comments DEKAs Essential 600 mcg-50 mcg-101 mg-1,000 mcg capsule Take 1 capsule daily - Active amlodipine 2.5 mg tablet take 1 tablet by oral route every day 2.5 MG - Active Plavix 75 mg tablet take 1 tablet by oral route every day 75 MG - Active Crestor 5 mg tablet take 1 tablet by oral route every day 5 MG - Active Miralax 17 gram/dose oral powder take 1 capful by oral route every day 1 capful - Active Linzess 145 mcg capsule take 1 capsule by oral route every day on an empty stomach at least 30 minutes before 1st meal of the day 145 MCG - Active Creon 24,000-76,000-120 ,000 unit capsule,delayed release take 1 capsule by oral route 3 times every day with meals and 1 capsule with each snack swallowing whole. Do not crush, chew and/or divide. 1.00 capsule - Active SODIUM CHLORIDE (unknown strength) Not Available - Active Protonix 40 mg intravenous solution infuse (40MG) by intravenous route every day 40 MG - Active hydroxyurea 500 mg capsule take (20MG/KG) by oral route every day 20 MG/KG - Active omeprazole 40 mg Cap, Delayed Release take 1 capsule (40MG) by ORAL route every day before a meal 40 MG - Active CALCIUM 500 MGTABLET Take one tablet by mouth daily - Active Ativan 1 mg tablet take 1 tablet by oral route as directed up to 2 times every day (before MRI) - No Longer Active amoxicillin 875 mg-potassium clavulanate 125 mg tablet take 1 tablet by oral route every 12 hours 1.00 tablet - No Longer Active Vazalore 81 mg capsule take 1 capsule by oral route every day 81 MG - No Longer Active Fish Oil 1,000 mg (120 mg-180 mg) capsule take 1 tablet by oral route every day 1 tablet - No Longer Active VITAMIN D3 (unknown strength) Take one tablet by mouth daily Not Available - No Longer Active Multiple Vitamin Tab Take one tablet by mouth daily - No Longer Active Procedures Procedure Date Colonoscopy Flex; W/remov Les- 25 Level Iv-surg Path Gross/micro 25 Routine Serum Collection Offic/outpt E&m Estab Mod-hi 2 24 Routine Serum Collection Routine Serum Collection Offic/outpt E&m Estab Low-mod 4 Routine Serum Collection Init Hosp-da E&m Mod Severity 4 Established Level 4 Init Hosp-da E&m Mod Severity 3 Subsqt Hosp-da E&m Minr Compl 3 ERCP w/dil, sphinc Ercp; W/endo Retro Remov Stone 21 ERCP w/FB or stent removal ERCP w/stent & sphinc Ercp; W/endo Retro Remov Stone 21 Ercp; W/endo Retro Remov Stone 21 ERCP w/stent & sphinc ERCP w/FB or stent removal Ercp; W/endo Retro Remov Stone 20 Subsqt Hosp-da E&m Minr Compl 0 Subsqt Hosp-da E&m Minr Compl 0 Ercp; W/endo Retro Remov Stone ERCP w/dil, sphinc Subsqt Hosp-da E&m Minr Compl 0 Init Hosp-da E&m Mod Severity 0 Ugi Endo; W/us Guid Asp/bx Ugi Endo; W/us Guid Asp/bx Ugi Endo; W/us Guid Asp/bx Ugi Endo; W/us Guid Asp/bx Ugi Endo; W/us Guid Asp/bx Offic/outpt E&m Estab Low-mod 0 [id number] Ugi Endo; W/us Guid Asp/bx Advance Directives Directive Yes / No Effective Date File Name No Information Encounters Encounter Description Practice Location Reason(s) For Visit Diagnoses Date Provider Providers Copied on Encounter [facility] [address] [address], [place], [id number], [place] tel:[phone] [facility] No Information 5 João Banda. [address] [facility], [address], [place], [id number] , [place]. tel:[phone] Referring Provider: Lindsey Dan MD, [address] [facility] [address], [place], [address]. [phone] [facility], [address] [address], [place], [address], [place] tel:[phone] [facility] GI Symptoms or Concerns (chief complaint) DiverticulosisH istory of colon polypsPolyp of colon, unspecified part of colon, unspecified typeEncounter for screening for malignant neoplasm of colonPersonal history of adenomatous and serrated colon polypsBenign neoplasm of ascending colonDiverticul osis of large intestine without perforation or abscess without bleedingDiverti culosis of large intestine without perforation or abscess without bleedingBenign neoplasm of ascending colonPersonal history of adenomatous and serrated colon polyps 5 Ni Portillo . [facility], [facility] [address], [place], [address] , [place]. tel:[phone] Referring Provider: Gaby Collins MD , [address] [place] [address], [address]. tel:[phone] [facility], [address] [address], [place], [address], [place] tel:[phone] [facility] No Information 5 Sourav Rich. [facility], [facility] [address], [place], [address] , [place]. tel:[phone] [facility], [address] [address], [place], [address], [place] tel:[phone] [facility] Other specified abnormal findings of blood chemistry 4 Joslyn Hernandez. [address] [facility], [facility] [address], [place], [address] , [place]. tel:[phone] Referring Provider: David Jorgensen MD, [address] [facility] [address], [place], [address]. [phone] [facility], [address] [address], [place], [address], [place] tel:[phone] [facility] Abnormal liver function test 4 Joslyn Hernandez. [address] [facility], [address], [place], [address] , [place]. tel: [phone] [facility], [address] [address], [place], [address], [place] tel:[phone] [facility] No Information 4 Diana Harman. [address] [facility], [address], [place], [address] , [place]. tel: [phone] Referring Provider: Referral Self, USE FOR SELF REFERRALS. [facility], [address] [address], [place], [address], [place] tel:[phone] [facility] Pancreatic cyst 4 Diana Harman. [address] [facility], [address], [place], [address] , [place]. tel: [phone] Offic/outpt E&m Estab Mod-hi 2 [facility], [address] [address], [place], [address], [place] tel:[phone] [facility] Comment (chief complaint) Bile duct strictureCholan gitisH/O Whipple procedureAcquir ed absence of other specified parts of digestive tractPancreas cyst 4 Diana Harman. [address] [facility], [address], [place], [address] , [place]. tel: [phone] Referring Provider: Referral Self, USE FOR SELF REFERRALS. [facility], [address] [address], [place], [address], [place] tel:[phone] [facility] Fever, unspecified 4 Joslyn Hernandez. [address] [facility], [address], [place], [address] , [place]. tel: [phone] Referring Provider: David Jorgensen MD, [address] [facility] [address], [place], [address]. tel:[phone] [facility], [address] [address], [place], [address], [place] tel:[phone] [facility] Right upper quadrant abdominal painFever, unspecified 4 Terrence Reynolds. [address] [facility], [address], [place], [address] , [place]. tel: [phone] [facility], [address] [address], [place], [address], [place] tel:[phone] [facility] Fever, unspecified 4 Joslyn Hernandez. [address] [facility], [address], [place], [address] , [place]. tel: [phone] [facility], [address] [address], [place], [address], [place] tel:[phone] [facility] No Information 4 Diana Harman. [address] [facility], [address], [facility] [place] [address] , [place]. tel: [phone] Offic/outpt E&m Estab Low-mod [facility], [address] [address], [place], [address], [place] tel:[phone] [facility] GI Symptoms or Concerns (chief complaint) Ventral hernia without obstruction or gangreneH/O Whipple procedureAcquir ed absence of other specified parts of digestive tract Dec- 4 Diana Harman. [address] [facility], [address], [facility] [place], [address] , [place]. tel: [phone] Referring Provider: Referral Self, USE FOR SELF REFERRALS. [facility], [address] [address], [place], [address], [place] tel:[phone] [facility] No Information 4 Pilar Fam. [address] [facility], [address], [place], [address] , [place]. tel: [phone] Init Hosp-da E&m Mod Severity [facility], [address] [address], [place], [address], [place] tel:[phone] [facility] No Information 4 Pilar Fam. [address] [facility], [address], [place], [address] , [place]. tel: [phone] Referring Provider: Gaby Suarez, [address] [facility], [place], [address]. tel:[phone] Established Level 4 [facility], [address] [address], [place], [address], [place] tel:[phone] [facility] GI Symptoms or Concerns (chief complaint) Cholangitis 4 Joslyn Hernandez. [address] [facility], [facility] [address], [place], [address] , [place]. tel: [phone] Referring Provider: Gaby Suarez, [address] [facility], [place], [address]. tel:[phone] [facility], [address] [address], [place], [address], [place] tel:[phone] [facility] No Information 4 Joslyn Hernandez. [address] [facility], [address], [place], [address] , [place]. tel: [phone] [facility], [address] [address], [place], [address], [place] tel:[phone] [facility] Abnormal liver function test 4 Joslyn Hernandze. [address] [facility], [address], [place], [address] , [place]. tel: [phone] Init Hosp-da E&m Mod Severity [facility], [address] [address], [place], [address], [place] tel:[phone] [facility] No Information 3 Malinda Chavezvitha. [address] [facility], [address], [place], [address] , [place]. tel: [phone] Referring Provider: Mirtha Petty NP, [address] [facility] [address], [place], [address]. tel:[phone] [facility], [address] [address], [place], [address], [place] tel:[phone] [facility] No Information 3 Emily Bunn. [address] [facility], [address], [place], [address] , [place]. tel: [phone] Referring Provider: Gaby Suarez, [address] [place] [address], [place], [address]. [phone] [facility], [address] [address], [place], [address], [place] tel:[phone] [facility] Bile duct stricture 2 Joslyn Hernandez. [address] [facility], [address], [place], [address] , [place]. tel: [phone] [facility], [address] [address], [place], [address], [place] tel:[phone] [facility] Bile duct stricture 2 Joslyn Hernandez. [address] [facility] [address], [address], [place], [address] , [place]. tel: [phone] [facility], [address] [address], [place], [address], [place] tel:[phone] [facility] No Information 1 Joslyn Hernandez. [address] [facility], [address], [place], [address] , [place]. tel: [phone] [facility], [address] [address], [place], [address], [place] tel:[phone] [facility] No Information 1 Joslyn Hernandez. [address] [facility], [address], [place], [address] , [place]. tel: [phone] Referring Provider: David Jorgensen MD, [address] [facility] [address], [place], [address]. tel:[phone] [facility], [address] [address], [place], [address], [place] tel:[phone] [facility] Fever, unspecified fever cause 1 Joslyn Hernandez. [address] [facility], [address], [place], [address] , [place]. tel: [phone] [facility], [address] [address], [place], [address], [place] tel:[phone] [facility] Bile duct stricture 1 Joslyn Hernandez. [address] [facility], [address], [place], [address] , [place]. tel: [phone] [facility], [address] [address], [place], [address], [place] tel:[phone] [facility] No Information 1 Joslyn Hernandez. [address] [facility], [address], [place], [address] , [place]. tel: [phone] Referring Provider: David Jorgensen MD, [address] [facility] [address], [place], [address]. tel:[phone] [facility], [address] [address], [place], [address], [place] tel:[phone] [facility] No Information 1 Joslyn Hernandez. [address] [facility], [address], [place], [address] , [place]. tel: [phone] [facility], [address] [address], [place], [address], [place] tel:[phone] [facility] Bile duct stricture 1 Joslyn Hernandez. [address] [facility], [address], [place], [address] , [place]. tel: [phone] [facility], [address] [address], [place], [address], [place] tel:[phone] [facility] Bile duct stricture 1 Joslyn Hernandez. [address] [facility], [address], [place], [address] , [place]. tel: [phone] [facility], [address] [address], [place], [address], [place] tel:[phone] [facility] No Information 1 Joslyn Hernandez. [address] [facility], [address], [place], [address] , [place]. tel: [phone] Referring Provider: Gaby Suarez, [address] [place] [address], [place], [address]. tel:[phone] [facility], [address] [address], [place], [address], [place] tel:[phone] [facility] Abnormal liver function tests 1 Joslyn Hernandez. [address] [facility], [address], [place], [address] , [place]. tel: [phone] [facility], [address] [address], [place], [address], [place] tel:[phone] [facility] Bile duct stricture 0 Joslyn Hernandez. [address] [facility], [address], [place], [address] , [place]. tel: [phone] [facility], [address] [address], [place], [address], [place] tel:[phone] [facility] No Information 0 Joslyn Hernandez. [address] [facility], [address], [place], [address] , [place]. [phone] Referring Provider: Gaby Collins MD K, [address] [facility], [place], [address]. tel:[phone] [facility], [address] [address], [place], [address], [place] tel:[phone] [facility] No Information 0 Joslyn Hernandez. [address] [facility], [address], [place], [address] , [place]. tel:[phone] Subsqt Hosp-da E&m Minr Compl [facility], [address] [address], [place], [address], [place] tel:[phone] [facility] No Information 0 Awais Salguero. [address] [facility], [address], [place], [address] , [place]. tel:[phone] Referring Provider: Noemy Coelho, [address] [facility] [address], [place], [address]. [phone] [facility], [address] [address], [place], [address], [place] tel:[phone] [facility] Bile duct stricture 0 Joslyn Hernandez. [address] [facility], [address], [facility] [place], [address] , [place]. tel:[phone] Subsqt Hosp-da E&m Minr Compl [facility], [address] [address], [place], [address], [place] tel:[phone] [facility] No Information 0 Rafa Cancino. [address] [facility], [address], [place], [address] , [place]. [phone] Referring Provider: Gaby Suarez, [address], [place], [address]. [phone] [facility], [address] [address], [place], [address], [place] tel:[phone] [facility] No Information 0 2 0 Terrence Saavedra [address] [facility], [address], [place], [address] , [place]. [phone] Referring Provider: Gaby Suarez, [address], [place], [address]. [phone] Subsqt Hosp-da E&m Minr Compl [facility], [address] [address], [place], [address], [place] tel:[phone] [facility] No Information 0 Antonnio MURPHY Ela. [address] [facility], [address], [place], [address] , [place]. [phone] Referring Provider: Gaby Suarez, [address], [place], [address]. [phone] Init [facility]-da E&m Mod Severity [facility], [address] [address], [place], [address], [place] tel:[phone] [facility] No Information 0 Florinda Ashford. [address] [facility], [address], [place], [address] , [place]. [phone] Referring Provider: Gaby Suarez, [address], [place], [address]. tel:[phone] [facility], [address] [address], [place], [address], [place] tel:[phone] [facility] Pancreas cyst 0 9 Terrence Saavedra [address] [facility] [address], [address], [place], [address] , [place]. tel: [phone] [facility], [address] [address], [place], [address], [place] tel:[phone] [facility] No Information 9 Terrence Reynolds. [address] [facility], [address], [place], [address] , [place]. tel: [phone] Referring Provider: Latoya Ocampo MD, [address] [facility] [address], [place], [address]. tel:[phone] [facility], [address] [address], [place], [address], [place] tel:[phone] [facility] Pancreas cyst 9 Terrence Reynolds. [address] [facility], [address], [place], [address] , [place]. tel: [phone] [facility], [address] [address], [place], [address], [place] tel:[phone] [facility] Pancreas cyst 8 Terrence Saavedra [address] [facility], [address], [place], [address] , [place]. tel: [phone] [facility], [address] [address], [place], [address], [place] tel:[phone] [facility] No Information 8 Terrence Saavedra [address] [facility], [address], [place], [address] , [place]. tel: [phone] Referring Provider: Gaby Suarez, [address] [place] [address], [place], [address]. [phone] [facility], [address] [address], [place], [address], [place] tel:[phone] [facility] Pancreas cyst Aug-2 7 Terrence Reynolds. [address] [facility], [address], [place], [address] , [place]. tel: [phone] [facility], [address] [address], [place], [address], [place] tel:[phone] [facility] Pancreas cyst Aug-0 6 Terrence Saavedra [address] [facility], [address], [place], [address] , [place]. tel: [phone] [facility], [address] [address], [place], [address], [place] tel:[phone] [facility] Pancreas cyst 5 Terrence Saavedra [address] [facility], [address], [place], [address] , [place]. tel: [phone] [facility], [address] [address], [place], [address], [place] tel:[phone] [facility] Pancreat Cyst/pseudocyst Pseudocyst of pancreas 4 Terrence Saavedra [address] [facility], [address], [place], [address] , [place]. tel: [phone] [facility], [address] [address], [place], [address], [place] tel:[phone] [facility] Pancreat Cyst/pseudocyst 4 Terrence Saavedra [address] [facility], [address], [place], [address] , [place]. tel: [phone] [facility], [address] [address], [place], [address], [place] tel:[phone] [facility] No Information 3 Terrence Saavedra [address] [facility], [address], [place], [address] , [place]. tel: [phone] Referring Provider: Gaby Suarez, [address] [place] [address], [place], [address]. [phone] [facility], [address] [address], [place], [address], [place] tel:[phone] [facility] No Information 1 Terrence Saavedra [address] [place] [address], [place], [address] , [place]. tel: [phone] [facility], [address] [address], [place], [address], [place] tel:[phone] [facility] No Information 1 Terrence Saavedra [address] [place] [address], [place], [address] , [place]. tel: [phone] Referring Provider: Rina Chery, [address] [place] [address], [address]. tel:[phone] [facility], [address] [address], [place], [address], [place] tel:[phone] [facility] No Information 0 Terrence Saavedra [address] [place] [address], [place], [address] , [place]. tel: [phone] Referring Provider: Rina Chery, [address] [place] [address], [address]. tel:[phone] Offic/outpt E&m Estab Low-mod [facility], [address] [address], [place], [address], [place] tel:[phone] [facility] F/U EUS (chief complaint) Pancreat Cyst/pseudocyst Heartburn 0 Terrence Saavedra [address] [place] [address] [address], [place], [address] , [place]. tel: [phone] [facility], [address] [address], [place], [address], [place] tel:[phone] [facility] No Information 9 Terrence Saavedra [address] [facility], [address], [place], [address] , [place]. tel:[phone] Family History Family Member Type Diagnosis Age At Onset First degree family history Problem (finding) Hepatitis First degree family history Problem (finding) No history of Cancer, colon First degree family history Problem (finding) No Family history of No history of Colon Polyps Mother Problem (finding) Gallbladder disease First degree family history Problem (finding) No history of Crohn's First degree family history Problem (finding) Leukemia First degree family history Problem (finding) No history of Ulcerative Colitis Mother Problem (finding) Thyroid disorder Father Problem (finding) Leukemia Immunizations Vaccine Date Status Comments SARS-COV-2 (COVID-19) vaccin e, mRNA, spike protein, LNP, preservative free, 50 mcg/0.5 mL dose administered Note: [facility] bi-direct ional interface ; Source: Other Registry Influenza, high-dose, split virus, trivalent, injectable, preservative free administered Note: [facility] bi[facility]direct ional interface ; Source: Other Registry SARS-COV-2 (COVID-19) vaccin e, mRNA, spike protein, LNP, preservative free, 50 mcg/0.5 mL dose administered Note: [facility] bi[facility]direct ional interface ; Source: Other Registry Influenza, high-dose, split virus, quadrivalent, injectable, preservative free administered Note: [facility] bi[facility]direct ional interface ; Source: Other Registry influenza, high-dose seasona l, quadrivalent, 0.7mL dose, preservative free administered Note: [facility] bi[facility]direct ional interface ; Source: Other Registry Respiratory syncytial virus (RSV), vaccine, recombinant, protein subunit RSV prefusion F, adjuvant reconstituted, 0.5 mL, preservative free administered Note: [facility]direct [facility] interface ; Source: Other Registry SARS-COV-2 (COVID-19) vaccin e, mRNA, spike protein, LNP, bivalent, preservative free, 30 mcg/0.3 mL dose, dori-sucrose formulation administered Note: [facility]direct ional interface ; Source: Other Registry Influenza, high-dose, split virus, quadrivalent, injectable, preservative free administered Note: [facility] bi[facility]direct ional interface ; Source: Other Registry influenza, high-dose seasona l, quadrivalent, 0.7mL dose, preservative free administered Note: [facility] bi[facility]direct ional interface ; Source: Other Registry SARS-COV-2 (COVID-19) vaccin e, mRNA, spike protein, LNP, preservative free, 100 mcg/0.5mL dose or 50 mcg/0.25mL dose administered Note: [facility] bi -directional interface ; Source: Other Registry SARS-COV-2 (COVID-19) vaccin e, mRNA, spike protein, LNP, preservative free, 100 mcg/0.5mL dose or 50 mcg/0.25mL dose administered Note: [facility] bi -directional interface ; Source: Other Registry SARS-COV-2 (COVID-19) vaccin e, mRNA, spike protein, LNP, preservative free, 100 mcg or 50 mcg dose administered Note: [facility] bi[facility]direct ional interface ; Source: Other Registry Influenza, high-dose, split virus, quadrivalent, injectable, preservative free administered Note: [facility] bi[facility]direct ional interface ; Source: Other Registry influenza, high-dose seasona l, quadrivalent, 0.7mL dose, preservative free administered Note: [facility] bi[facility]direct ional interface ; Source: Other Registry influenza, high-dose seasona l, quadrivalent, .7mL dose, preservative free administered Note: [facility] bi[facility]direct ional interface ; Source: Other Registry zoster vaccine recombinant administered N ote: [facility] bi-directional interface ; Source: Other Registry zoster vaccine recombinant administered N ote: [facility] bi-directional interface ; Source: Other Registry SARS-COV-2 (COVID-19) vaccin e, mRNA, spike protein, LNP, preservative free, 100 mcg/0.5mL dose or 50 mcg/0.25mL dose administered Note: [facility] bi -directional interface ; Source: Other Registry SARS-COV-2 (COVID-19) vaccin e, mRNA, spike protein, LNP, preservative free, 100 mcg or 50 mcg dose administered Note: [facility] bi-direct ional interface ; Source: Other Registry SARS-COV-2 (COVID-19) vaccin e, mRNA, spike protein, LNP, preservative free, 100 mcg/0.5mL dose administered Note: [facility] bi[facility]direct ional interface ; Source: Other Registry SARS-COV-2 (COVID-19) vaccin e, mRNA, spike protein, LNP, preservative free, 100 mcg/0.5mL dose or 50 mcg/0.25mL dose administered Note: [facility] bi -directional interface ; Source: Other Registry SARS-COV-2 (COVID-19) vaccin e, mRNA, spike protein, LNP, preservative free, 100 mcg or 50 mcg dose administered Note: [facility] bi[facility]direct ional interface ; Source: Other Registry SARS-COV-2 (COVID-19) vaccin e, mRNA, spike protein, LNP, preservative free, 100 mcg/0.5mL dose administered Note: [facility] bi[facility]direct ional interface ; Source: Other Registry Influenza, high-dose, split virus, quadrivalent, injectable, preservative free administered Note: [facility] bi[facility]direct ional interface ; Source: Other Registry influenza, high-dose seasona l, quadrivalent, 0.7mL dose, preservative free administered Note: [facility]direct ional interface ; Source: Other Registry influenza, high-dose seasona l, quadrivalent, .7mL dose, preservative free administered Note: [facility] bi[facility]direct ional interface ; Source: Other Registry Influenza, recombinant, quadrivalent, injectable, preservative free administered Note: [facility] bi[facility]direct ional interface ; Source: Other Registry Seasonal, quadrivalent, recombinant, injectable influenza vaccine, preservative free administered Note: [facility] bi[facility]direct ional interface ; Source: Other Registry Influenza, high-dose, split virus, trivalent, injectable, preservative free administered Note: [facility]direct ional interface ; Source: Other Registry influenza, high dose seasona l, preservative-free administered Note: [facility] bi[facility]direct ional interface ; Source: Other Registry tetanus toxoid, reduced diphtheria toxoid, and acellular pertussis vaccine, adsorbed administered Note: [facility] b i-directional interface ; Source: Other Registry Influenza, high-dose, split virus, trivalent, injectable, preservative free administered Note: [facility] bi-direct ional interface ; Source: Other Registry influenza, high dose seasona l, preservative-free administered Note: [facility] bi-direct ional interface ; Source: Other Registry Prevnar 13 administered Note: [facility] bi-d irectional interface ; Source: Other Registry Influenza, high-dose, split virus, trivalent, injectable, preservative free administered Note: [facility] bi-direct ional interface ; Source: Other Registry influenza, high dose seasona l, preservative-free administered Note: [facility] bi-direct ional interface ; Source: Other Registry Influenza, high-dose, split virus, trivalent, injectable, preservative free administered Note: [facility] bi[facility]direct ional interface ; Source: Other Registry influenza, high dose seasona l, preservative-free administered Note: [facility] bi[facility]direct ional interface ; Source: Other Registry Pneumovax 23 administered Note: [facility] bi-d irectional interface ; Source: Other Registry zoster vaccine, live administered Note: [facility] bi-directional interface ; Source: Other Registry Influenza, split virus, trivalent, injectable, preservative free administered Note: [facility] bi-direct ional interface ; Source: Other Registry Influenza, seasonal, injecta ble, preservative free administered Note: [facility] bi-direct ional interface ; Source: Other Registry Afluria Qd administered Note: [facility] bi-directional interface ; Source: Other Registry Novel [id number], all formulations administered Note: [facility] bi-direct ional interface ; Source: Other Registry tetanus and diphtheria toxoi ds, adsorbed, preservative free, for adult use (5 Lf of tetanus toxoid and 2 Lf of diphtheria toxoid) administered Note: [facility] bi-direct ional interface ; Source: Other Registry Payers Payer name Insurance type Covered libertarian ID Authoriza tion(s) [employer] [place] [employer] [id number] Social History Type Description Quantity Date Captured Comments Sex Female Smoking Status No Information Chief Complaint And Reason For Visit No Information Reason For Referral Reason For Referral No Information Plan Of Treatment Date Type Action Status Referral Ordered: MRCP Biliary/Pancreatic Ducts WITHOUT And WITH Contrast Appointment date/timeframe: 04/28/2024 ordered Referral Ordered: CBC W/diff, Whole Blood Appointment date/timeframe: 10/17/2023 ordered Referral Ordered: CT Abdomen WITHOUT And WITH Contrast Appointment date/timeframe: 09/16/2021 ordered Referral Ordered: CT Abdomen WITH Contrast Appointment date/timeframe: 08/10/2021 ordered Referral Ordered: CT Abdomen And Pelvis WITHOUT And WITH Contrast Appointment date/timeframe: 05/14/2020 ordered Referral Ordered: referred to David SÁNCHEZ ordered Referral Ordered: [facility] Appointment date/timeframe: 03/21/2018 ordered Referral Ordered: MRI Pancreas WITH Contrast Appointment date/timeframe: 08/24/2014 ordered History Of Present Illness Encounter Date Complaint History Of Prese nt Illness GI Symptoms or Concerns Comment A very pleasant 73-year-old female who presents today for a followup. 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 She takes antibiotics intermittently and unfortunately about 2 weeks after the previous episode on 01/22/2024, she ended up having febrile episode again and called Dr. Jorgensen's office and was recommended to take antibiotics. She then called again on 03/17/2024 and was advised to take the antibiotics. Subsequently, on 03/17/2023, she had a febrile episode overnight and laboratories were checked, which were fairly unremarkable and antibiotics were not taken. Subsequently, she had another episode on 04/06/2024 when she took another course of Augmentin which she is currently completing. She does not recall recent imaging with an MRCP, but has had CT scans for part of her hernia repair surgery followup. She denies any episodes of fever while on the antibiotics and GI Symptoms or Concerns A very p leasant 73-year-old female who presents today for followup. 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 Most recently, this occurred early in November when she was seen by Dr. Quezada in the hospital. This time around, she had presented with chills, but her LFTs were not significantly elevated and she did not end up requiring another ERCP procedure. The most recent ERCP was in August 2023 when she had presented with another episode and significant transaminase elevation above 1000.Today, she presents predominantly with complaints of abdominal belching and underlying constipation. The patient has an area underneath her left rib cage that she reports that over the course of the last few months has enlarged from being a long slender tubula GI Symptoms or Concerns Malinda a pleasant 73-year-old woman who I have known over the years due to her history of pancreaticoduodenectomy for a pancreas lesion and complications of a choledochal jejunostomy stenosis leading to bouts of cholangitis in the past. We have been able to in the past perform ERCP and dilate the choledochojejunostomy as well as extract sludge and stones in the past. On her most recent such episode which happened about 3 weeks ago she was hospitalized and did have her anastomosis dilated but no pus or sludge was extracted. Irrespective the clinical picture was rather classic for a bout of cholangitis. Now she reports having had some chills but no fever since her last hospital stay and on 2 occasions we checked her liver tests which were found to be normal. She has had no nausea or vomiting. No rigors. Functional Status Date Functional Assessmen t No Information Instructions Date Instruction Additional Infor qamar Colon Cancer Prevention Related to Polyp of colon, unspecified part of colon, unspecified type Colon Polyps Related to Polyp of colon, unspecified part of colon, unspecified type Diverticulosis/Diverticulitis Re lated to Diverticulosis Therefore, we agreed on the following plan:1. An MRCP to evaluate the choledochojejunostomy given that the episodes of fever are becoming more and more frequent.2. Discuss findings with Dr. Jorgensen based on MRCP if there is a role for further intervention.3. We will send a course of Augmentin with 1 refill for the patient to have available in case of recurrent episodes. The patient knows what to look for in terms of alarm symptoms that should take her to the emergency room.4. We will send the prescription for Ativan given the patient has a history of claustrophobia prior to MRCP. 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 I have asked her to call me if she has any fever or rigors and we would promptly check her liver tests at a minimum. I have asked her to also call me if she continues to have chills and not feel well and we will irrespective consider repeating an ERCP but I would give it at least 2 or 3 more weeks from now. She asked good questions and has a good understanding of the issues at hand. Related to Cholangitis MRI Pancreas WITH Contrast Assessments Type Assessment Date No Information Patient Care Teams Name Effective Dates (start - stop) Status Members No Information
--- OUTSIDE RECORDS SUMMARY | 2024-12-27 16:31 | XMS_ITS | Clinical Summary ---
Author Organization [employer] [facility] Address [address] [place] [address] Care Team Providers Care Senior Project Engineer Name Role Phone Gaby Collins MD Primary Care Provide r Lenny Hernandez MD Unavailable [phone] Vonnie Barragan MD Unavailable Unavailable David Jorgensen MD Unavailable Parisa Phillips MD Unavailable Lizzette Batista DEMAND PLANNING ANALYST Unavailable Mirtha Petty NP Unavailable Allergies Active Allergy Reactions Criticality Noted Date Comments Beta-Blockers (Beta-Adrenergic Blocking Agts) Other - Describe In Comment Field Low 05/05/2022 Upset stomach Ciprofloxacin Myalgia High 07/22/2013 Cyclobenzaprine Dizziness 09/27/2023 Hydromorphone Other - Describe [...] Other reaction(s): MYALGIA Sulfamethizole Arthralgia 10/15/2023 Medications [id number] elisabet oil (FISH OIL) 300-1,000 mg capsule Take 1 Capsule by mouth once daily. 0 02/09/20 20 Active cholecalciferol (VITAMIN D3) 1,000 unit tablet Take 1,000 Units by mouth once daily. 0 02/09/20 20 Active mv-min/iron/folic /calcium/vitK (WOMEN'S MULTIVITAMIN ORAL) Take 1 Tablet by [...] 81 mg by mouth at bedtime. 0 11/25/19 21 Active acetaminophen (TYLENOL EXTRA STRGTH) 500 mg tabletIndications :Ventral hernia without obstruction or gangrene Take 2 Tablets (1,000 mg) by mouth every 6 hours if needed (pain). Max acetaminophen dose: 4000mg in 24 hrs. Use over the counter supply 0 05/27/20 21 Active polyethylene glycoL (Miralax) 17 gram/dose powder Mix 1 scoop (17 g) in liquid then take by mouth once daily if needed for Constipation. 0 02/21/20 22 Active Magnesium Citrate powd As directed 325 mg once daily if needed. 0 02/21/20 22 Active sodium chloride 1,000 mg soluble tabletIndications :Hyponatremia Take 1 Tablet (1 g) by mouth once daily. 90 Tablet 3 07/23/20 23 Active pantoprazole (PROTONIX) 40 mg delayed-release tabletIndications :Pancreatic cyst (HC) TAKE ONE TABLET BY MOUTH ONE TIME DAILY BEFORE A MEAL. 90 Tablet 2 10/20/19 25 Active clopidogreL (PLAVIX) 75 mg tabletIndications :Cerebrovascular accident (CVA), unspecified mechanism (HC) Take 1 Tablet (75 mg) by mouth once daily in the morning. 90 Tablet 3 11/27/19 25 Active hydroxyurea (HYDREA) 500 mg capsuleIndication s:Thrombocythemia TAKE 1 CAPSULE BY MOUTH ON SUNDAY, SUNDAY, SUNDAY; AND THEN 2 CAPSULES ON ALL OTHER DAYS. 180 Capsule 3 11/27/19 25 Active shecke-iwbheoeh-q mylase (Creon) 36,000-114,000- 180,000 unit capsuleIndication s:Pancreatic insufficiency (HC) take 2 capsules by mouth three times daily before meals and 1 capsule with snacks. do not exceed 9 capsules daily. 810 Capsule 3 11/27/19 25 Active rosuvastatin (CRESTOR) 5 mg tabletIndications :Ischemic embolic stroke (HC) Take 1 Tablet (5 mg) by mouth at bedtime. 90 Tablet 3 11/27/19 25 Active doxycycline hyclate 50 mg capsuleIndication s:Rosacea Take 1 Capsule (50 mg) by mouth once daily. 100 Capsule 11/27/19 25 Active amLODIPine (NORVASC) 5 mg tabletIndications :HTN (hypertension) Take 1 Tablet (5 mg) by mouth once daily. 90 Tablet 3 11/27/19 25 Active Active Problems Problem Noted Date Diagnosed [...] Ascending Cholangitis 12/02/2019 10/13/2020 Perimenopausal disorder 06/01/2009 09/11/2009 Acute postoperative pain Encounters Date Type Department Care Team Description 12/19/2024 Telephone [facility] [address] [facility] [address] Gaby Collins MD Results (Mammogram) 12/10/2024 7:40 AM CDT Ancillary Procedure [facility] [address] [place] [address] 12/10/2024 Travel 12/02/2024 Telephone [facility] [address] [place] [address] [address] Gaby Collins MD Results (lipid panel 11/27/24 ) 11/27/2024 7:50 AM HIGH VALUE ASSOCIATE Office Visit [facility] [address] [place] [address] Gaby Collins MD Medicare ANNUAL (subsequent) Visit (74 yo Female/Having some break out skin around nose) 11/27/2024 Travel 11/03/2024 9:00 AM HIGH VALUE ASSOCIATE Office Visit [facility] [address] [place] [address] Lenny Hernandez MD Follow Up 11/03/2024 Travel 11/02/2024 Travel 10/27/2024 7:27 AM HIGH VALUE ASSOCIATE - 10/27/2024 11:59 PM HIGH VALUE ASSOCIATE Hospital Encounter [facility] [address] [place] [address] Lenny Hernandez MD IPMN (intraductal papillary mucinous neoplasm) 10/27/2024 Travel 10/23/2024 Refill [facility] [address] [place] [address] Gaby Collins MD Refill Request (amoxicillin-clavula karl 875-125 mg tablet (AUGMENTIN)) 10/20/2024 Telephone [facility] [address] [place] [address] Lenny Hernandez MD Imaging 10/17/2024 Refill [facility] [address] [place] [address] Gaby Collins MD Refill Request (Pantoprazole) from Last 3 Months Immunizations Immunization Administration Dates Next Due COVID-19 VACCINE SPIKEVAX [...] Answer Date Recorded PHQ-2 TOTAL SCORE 0 11/27/2024 Social Connections Answer Date Recorded Do you [...] is your housing situation today? 1 12/10/2023 Interpersonal Safety Answer Date Record ed Are you being hit, kicked, p ushed or yelled at (see row info)? No 12/09/2023 Interpersonal Safety Abuse 12 - 18 Not on file 12/09/2023 Interpersonal Safety Ambulatory Vulnerability No t on file 12/09/2023 Utilities Answer Date Recorded Do you have trouble paying f or utilities (for example, heat, electricity, water, phone)? 1 12/10/2023 Comments No Sex and Gender Information Value Date Recorded Sex Assigned at Not on file Legal Sex Female 7:13 AM HIGH VALUE ASSOCIATE Gender Identity Not on file Sexual Orientation Not on file Obstetrics History Para Term AB IAB SAB Ectopic Multiple Livin g Live Births 2 2 1 1 2 Date Outcome GA Total Labor Labor/2nd/3rd Weight Sex Type Anes PTL Lauren A1 A5 Name Clin Term Last Filed Vital Signs Vital Sign Reading Time Taken Comments Blood Pressure 153/69 11/27/2024 8:16 AM HIGH VALUE ASSOCIATE Pulse 67 11/27/2024 8:16 AM HIGH VALUE ASSOCIATE Temperature 36.9 C (98.4 F) 11/03/2024 8:50 AM HIGH VALUE ASSOCIATE Respiratory Rate 18 09/16/2024 10:11 AM HIGH VALUE ASSOCIATE Oxygen Saturation 98% 11/27/2024 8:12 AM HIGH VALUE ASSOCIATE Inhaled Oxygen Concentration - - Weight 64.1 kg (141 lb 6.4 oz) 11/27/2024 8:12 A M HIGH VALUE ASSOCIATE Height 157.5 cm (5' 2) 11/27/2024 8:12 AM HIGH VALUE ASSOCIATE Body Mass Index 25.86 11/27/2024 8:12 AM HIGH VALUE ASSOCIATE Plan of Treatment Upcoming Encounters Date Type Department Care Team (Late st Contact Info) Description 01/12/2025 8:45 AM CDT Orders Only [facility] [address] [place] [address] [place] 01/15/2025 10:00 AM CDT Office Visit [facility] [place] [address] [facility] [place] [phone] Parisa Phillips MD [address] [place], [place] [id number] Health Maintenance Due Date Last Done Comments COVID-19 vaccine series (9 - Moderna risk 2023- season) 2024 06/19/2024, 12/18/2023, 09/26/2022, Additional history exists BMI (ht and wt on same day) for age 18+ 11/27/2025 11/27/2024, 11/03/2024, 06/26/2024, Additional history exists Depression screening for age 12+ 11/27/2025 11/27/2024, 09/27/2023, 09/26/2022, Additional history exists Medicare Wellness for age 65+ 11/28/2025, 09/26/2022, 09/26/2016, Additional history exists Tetanus booster 11/05/2027 11/05/2017, 10/2012, 09/28/2005, Additional history exists Pneumococcal series for age 50+ Completed 6, 12/09/2013 Tdap Completed 11/05/2017, 10/01/2012 Hepatitis C screening for ag e 18-79 Completed 02/19/2020 Zoster (shingles) series for age 50+ Completed 04/23/2021, 01/26/2021, 09/29/2012 DEXA/DXA scan for age 65+ Completed 2021, 09/28/2016, 06/02/2010 RSV vaccine for adults or Completed 08/27/2023 Influenza Vaccine Completed 06/19/2024, , 07/02/2019, Additional history exists Goals Goal Patient Goal Type Associated Problems Recent Progress Patient-Stated? Author BLOOD PRESSURE - Maintains BP less than 140/90 Blood Pressure No Ally Lloyd, OPTICAL LABORATORY MECHANIC Medical Devices Implanted Type Area Ice Cream Freezer Helper Device Identifier Shelf Expiration Date Model / Serial / Lot Mesh Ventral 4x6in Ventralightst - [id number] Implanted:Qty: 1 on 02/25/2020 by Lenny Hernandez MD at [facility] Abdomen [employer] 09/27/2021 [id number] / / [id number] Stent Biliary [id number] Viabil No Hole - [id number] Implanted:Qty: 1 on 04/28/2020 by David Jorgensen MD at [facility] [employer] [id number] / / [id number] Mesh Ventral 4x6in Ventralight St - [id number] Implanted:Qty: 1 on 05/27/2021 by Lenny Hernandez MD at [facility] [employer] 03/28/2022 [id number] / / [id number] Stent Biliary [id number] Viabil No Hole - [id number] Implanted:Qty: 1 on 07/08/2021 by David Jorgensen MD at [facility] [employer] 01/31/2024 [id number] / [id number] / [id number] Stent Biliary [id number] Viabil No Hole - [id number] Implanted:Qty: 1 on 08/30/2021 by David Jorgensen MD at [facility] [employer] 11/30/2023 [id number] / / [id number] Procedures Procedure Name Priority Date/Time Associated Diagnosis Comments XR MAMMO MARLEE BILAT SCREEN Routine 12/10/2024 7:47 AM CDT Visit for screening mammogram LIPID PANEL W REFLEX MEASURED LDL Routine 11/27/2024 9:16 AM HIGH VALUE ASSOCIATE Cerebrovascular accident (CVA), unspecified mechanism (HC) SCAN-COLONOSCOPY 10/30/2024 11:3 0 AM HIGH VALUE ASSOCIATE MR ABDOMEN PANCREAS WWO Routine 10/27/2024 10:38 AM HIGH VALUE ASSOCIATE IPMN (intraductal papillary mucinous neoplasm) XR DXA BONE DENSITY 2 SITES AXIAL Routine 05/08/2022 8:38 AM CDT Menopause ANTI HCV Routine 02/19/2020 9:00 AM CDT Encounter for hepatitis C screening test for low risk patient from Last 3 Months or Most Recently Relevant to Health Maintenance Results * XR MAMMO MARLEE BILAT SCREEN (12/10/2024 7:47 AM CDT) Anatomical Region Laterality Modality BREASTS, Breast Left, Breast Right Bilateral Mammography Impressions 12/11/2024 2:29 PM CDT There is no radiographic evidence for malignancy. Recommend annual mammograms. MAMMOGRAM ASSESSMENT: ACR 1 Negative PATIENTS: You will also receive a letter with your examination results in an easy to read format. If you have questions about your results, please contact your referring provider. Narrative 12/11/2024 2:29 PM CDT For Patients: As a result of the Cures Act, medical imaging exams and procedure reports are released immediately into your electronic medical record. You may view this report before your referring provider. If you have questions, please contact your health care provider. XR MAMMO MARLEE BILAT SCREEN [[id number]] CLINICAL HISTORY: This is an asymptomatic 74 y.o. patient. INDICATION FOR EXAM: Mammogram Screening. TECHNIQUE: CC and MLO views were obtained. This study was evaluated with the assistance of Computer-Aided Detection. Breast Tomosynthesis was used in interpretation. COMPARISON FILM: Yes 09/27/23 [facility] 09/19/22 [facility] FINDINGS: The breasts are heterogeneously dense, which may obscure small masses. There are no dominant masses, suspicious micro calcifications or areas of architectural distortion. us Gaby Collins MD MAMMO Final Result * (ABNORMAL) LIPID PANEL W REFLEX MEASURED LDL (11/27/2024 9:16 AM HIGH VALUE ASSOCIATE) CHOLESTEROL, TOTAL 117 <200 mg/dL [facility] HDL CHOLESTEROL 48(L) > OR = 50 mg/dL [facility] TRIGLYCERIDES 52 <150 mg/dL [facility] LDL-CHOLESTEROL 56 mg/dL (calc) [facility] Comment: Reference range: <100 Desirable range <100 mg/dL for primary prevention; <70 mg/dL for patients with CHD or diabetic patients with > or = 2 CHD risk factors. LDL-C is now calculated using the Abbey calculation, which is a validated novel method providing better accuracy than the Friedewald equation in the estimation of LDL-C. Nash NEAL et al. JAMES. 2013;310(19): 5114-3242 (http://education.[employer]/faq/XHZ197) CHOL/HDLC RATIO 2.4 <5.0 (calc) [facility] NON HDL CHOLESTEROL 69 <130 mg/dL (calc) [facility] Comment: For patients with diabetes plus 1 major ASCVD risk factor, treating to a non-HDL-C goal of <100 mg/dL (LDL-C of <70 mg/dL) is considered a therapeutic option. Blood BLOOD SPECIMEN / Unknown 11/27/2024 9:16 AM HIGH VALUE ASSOCIATE 11/27/2024 9:16 AM HIGH VALUE ASSOCIATE Narrative Spinal Modulation DIAGNOSTICS - 11/28/2024 2:43 AM HIGH VALUE ASSOCIATE FASTING:YES FASTING: YES Gaby Collins MD CHEMISTRY Final Result [facility] [address] [place] [address], [facility] [address] [place] [address] * SCAN-COLONOSCOPY (10/30/2024 11:30 AM HIGH VALUE ASSOCIATE) Narrative Procedure Note Lindsey Dan MD - 10/30/2024 10:32 AM CST [facility] [address], [address], [place] [address] Patient Name: Malinda Putnam Gender: Female Exam Date: 10/30/2024 Visit Number: [id number] Age: 74 Years Date of : 1950 Attending MD: Lindsey Dan MD Medical Record#: [id number] Procedure: Colonoscopy Indications: Previous adenomatous polyp(s) Referring MD: Gaby Collins MD Primary MD: Gaby Collins MD Medications: Admitting Medications: 0.9% Normal Saline at TKO Ondansetron Hydrochloride (Zofran) given 4mg by IV Intra Procedure Medications: Patient received monitored anesthesia care. Complications: No immediate complications Procedure: An examination of the heart and lungs was performed and found to be withinacceptable limits. . The patient was therefore deemed a reasonablecandidate for endoscopy and sedation. The risks and benefits of the procedure were explained to thepatient.After obtaining informed consent, the patient received monitoredanesthesia care and I passed the scope without difficulty via the rectum to the cecum. The appendiceal orificeand ic valve were identified. The scope was retroflexed during theexamination The quality of the prep was good (Miralax/Gatorade DoublePrep). This was a complete examination throughout the entire colon. Findings: Polyp location: ascending colon. Quantity: 2. Size: 2 mm, 3 mm. Polypshape: sessile. Maneuver: polypectomy was performed with a cold snare. Removal: complete. Retrieval: complete. Bleeding: none. Diverticulosis. Location: - transverse colon - descending colon -sigmoid. Description: severe. Size: large. Quantity: many. Noinflammation present. Anal canal: internal hemorrhoid(s) Remainder of the exam is normal. Impression: Diverticulosis History of colon polyps Polyp of colon, unspecified part of colon, unspecified type Preliminary Plan: Repeat colonoscopy not indicated at this time The [place] Preventive Services Task Force recommends againstroutine screening for colorectal cancer in adults age 76 to 85 years.There may be considerations that support colorectal cancer screening in anindividual patient. Antiplatelets/Anticoagulants: Clopidogrel (Plavix). Last dose: 7 daysago. Restart. Date: 10/30/2024 Pathology Results: A: COLON, ASCENDING, POLYPS: 1. Tubular adenoma (1) and normal colonic mucosa (endoscopically 2polyps) 2. Negative for high grade dysplasia 3. Per the colonoscopy report: a. Polyp sizes: 2 mm - 3 mm b. Resection: Complete c. Retrieval: Complete MICROSCOPIC A: Performed SPECIAL STAINING/DEEPER A: Deeper Electronically signed by: Ortiz Campbell MD Interpreted at [facility], [address] [place] [phone] Orders Instruction(s)/Education: Instruction/Education Timeframe Assessment Colon Cancer Prevention K63.5 Colon Polyps K63.5 Diverticulosis/Diverticulitis K57.90 Final Plan: The [place] Preventive Services Task Force recommends againstroutine screening for colorectal cancer in adults age 76 to 85 years.There may be considerations that support colorectal cancer screening in anindividual patient. _Electronically signed by: Lindsey Dan MD 10/30/2024 cc: Gaby Collins MD cc: Gaby Collins MD Lindsey Dan MD OTHER Final R esult * MR ABDOMEN PANCREAS WWO (10/27/2024 10:38 AM HIGH VALUE ASSOCIATE) Anatomical Region Laterality Modality Abdomen, PANCREAS Magnetic Reson ance 10/27/2024 2:28 PM HIGH VALUE ASSOCIATE Narrative 10/27/2024 2:28 PM HIGH VALUE ASSOCIATE For Patients: As a result of the Cures Act, medical imaging exams and procedure reports are released immediately into your electronic medical record. You may view this report before your referring provider. If you have questions, please contact your health care provider. INDICATION: Intraductal papillary mucinous neoplasm of the pancreas. COMPARISON: Abdominal MRIs dated 28 April 2024 for and 04 July 2022. TECHNIQUE: Abdominal MRI with T1 in- and out of phase, T2, diffusion weighted, and progressively delayed post-contrast images. Intravenous gadolinium administered. Heavily T2 weighted 2D and 3D MRCP images. FINDINGS: No fatty infiltration of the liver. A few subcapsular wedge-shaped areas of arterial enhancement in the liver normalize on the more delayed postcontrast images and are unchanged. No discrete liver lesions identified. No abnormalities identified in the visualized portions of the spleen and adrenal glands. Bilateral renal cysts. The kidneys are otherwise unremarkable. No hydronephrosis. Whipple surgery. 2.1 x 1.3 cm lobulated septated cyst in the body of the pancreas adjacent to the pancreaticojejunostomy is unchanged. No adenopathy. No bile duct dilation. Normal size of the main pancreatic duct. Impression : 1. 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 Dictated by Ghanshyam Zheng MD @ 10/27/2024 2:28:12 PM (Electronically Signed) Procedure Note Ghanshyam Zheng MD - 10/27/2024 For Patients: As a result of the Cures Act, medical imagingexams and procedure reports are released immediately into your electronicmedical record. You may view this report before your referring provider.If you have questions, please contact your health care provider. INDICATION: Intraductal papillary mucinous neoplasm of the pancreas. COMPARISON: Abdominal MRIs dated 28 April 2024 for and 04 July 2022. TECHNIQUE: Abdominal MRI with T1 in- and out of phase, T2, diffusion weighted, andprogressively delayed post-contrast images. Intravenous gadoliniumadministered. Heavily T2 weighted 2D and 3D MRCP images. FINDINGS: No fatty infiltration of the liver. A few subcapsular wedge-shaped areas of arterial enhancement in the livernormalize on the more delayed postcontrast images and are unchanged. No discrete liver lesions identified. No abnormalities identified in the visualized portions of the spleen andadrenal glands. Bilateral renal cysts. The kidneys are otherwise unremarkable. Nohydronephrosis. Whipple surgery. 2.1 x 1.3 cm lobulated septated cyst in the body of the pancreas adjacentto the pancreaticojejunostomy is unchanged. No adenopathy. No bile duct dilation. Normal size of the main pancreatic duct. Impression : 1. 2.1 cm lobulated septated cyst in the body of the pancreas isunchanged. Dictated by Ghanshyam Zheng MD @ 10/27/2024 2:28:12 PM (Electronically Signed) Lenny Hernandez MD MR Final Result * (ABNORMAL) XR DXA BONE DENSITY 2 [...] Patients: Results are automatically released to your [facility] (What the Trend) account once available, in compliance with federal regulations. This means that you may see your results before your provider has had a chance to review them. Please allow 2-3 business days for your provider to comment on the results. XR DXA Bone Mineral Density (BMD) EXAM LOCATION: [facility] [address] [facility] [address] PATIENT NAME: Malinda Putnam DATE OF : 1950 EXAM DATE: 05/08/2022 REQUESTING PROVIDER: Gaby Collins MD GENDER AT : female HEIGHT: 5' 2.5 (03/02/2022) WEIGHT: 140 lb 4.8 oz (04/20/2022) MENOPAUSAL STATUS: Postmenopausal [...] two scanners are made by the same patternmaker all around. PROCEDURE: Dual-energy x-ray absorptiometry performed with routine [...] + 1.9 Change from prior in 2016: Increase 13.8%. Right femoral neck BMD: 0.707 g/cm2 T-Score: - 2.4 Z-Score: - 0.5 Change from prior in 2016: Decrease 19.8%. Right hip BMD: 0.735 g/cm2 T-Score: - 2.2 Z-Score: - 0.5 Change from prior in 2016: Decrease 19.1%. WHO criteria: Normal: T-score at or above -1 SD Osteopenia: T-score between -1.1 and -2.4 SD Osteoporosis: T-score at or below -2.5 SD FRAX RISK CALCULATION (USED FOR OSTEOPENIA ONLY): 10-year probability of major osteoporotic fracture: 15.2%. 10-year probability of hip fracture: 4.4%. Gaby Collins MD DEXA Final Result * ANTI HCV (02/19/2020 9:00 AM CDT) HEPATITIS C ANTIBODY Non-React alexandre Non-React alexandre 02/19/2020 2:14 PM CDT [facility] Comment:Antibodies to HCV no t detected; does not exclude the possibility of exposure to HCV. Blood BLOOD SPECIMEN / Unknown Venipuncture / Unknown 02/19/2020 9:00 AM CDT 02/19/2020 9:00 AM CDT Gaby Collins MD SEND OUTS Final Result [facility] [address] [place] [address], from Last 3 Months or Most Recently Relevant to Health Maintenance Additional Health Concerns Infection Onset Date Last Indicated Rule-Out C.diff 07/17/2024 07/17/2024 Insurance [employer] [place] BLUE MR PB ONLY MEDICARE PART B HB ONLY [employer] [place] BLUE HB ONLY MEDICARE PART A HB ONLY Advance Directives * Full Code (Latest Code [...] Code Status Discussion: Not Discussed Care Teams Senior Project Engineer Relationship Specialty Start Date End Date Gaby Collins MD [address] [place] [address] PCP - General Family Practice 07/15/19 Lenny Hernandez MD [address] [place] [address] Consulting Physician Surgery - General 11/29/19 Vonnie Barragan MD Hepatobiliary and Pancreatic Surgery Resident 02/25/20 [place] [address] [facility] [email or web address] [address] [place] [address] Gastroenterology Gastroenterology 05/20/20 Parisa Phillips MD [address] [place] [address] Hematology Hematology and Oncology 11/30/20 Lizzette Batista NP [address] [place] [address] Hematology Nurse Practitioner - Family 11/30/20 Mirtha Petty NP [address] [place] [address] Nurse Practitioner - Gerontology 09/22/23
[2024-12-27 16:33] VITALS: BP 181/81; PULSE 74; RESP 16; TEMP 37.4; O2SAT 97; BMI 25.8
--- NOTE | 2024-12-27 17:03 | CRLHL7_ITS ---
For Patients: As a result of the Century Cures Act, medical imaging exams and procedure reports are released immediately into your electronic medical record. You may view this report before your referring provider. If you have questions, please contact your health care provider. TECHNIQUE: Multiplanar CT examination of the head was performed without the use of intravenous contrast. INDICATION: Vertigo. COMPARISON: CT 08/01/2024. FINDINGS: No loss of cervantes-white differentiation to suggest recent territorial infarct. No intracranial hemorrhage, abnormal extra-axial fluid collection, hydrocephalus or midline shift. The ventricles and cerebral sulci are prominent in caliber, compatible with mild generalized parenchymal volume loss. There is patchy hypoattenuation of the supratentorial white matter diffusely, nonspecific but consistent with chronic microvascular ischemic changes. The basal cisterns are patent. Grossly unchanged atherosclerotic calcifications near the left MCA bifurcation. The paranasal sinuses and mastoid air cells remain clear. The orbits and calvarium are unremarkable. The cerebellar tonsils are normal position. IMPRESSION: 1. No acute intracranial findings. 2. Mild generalized parenchymal volume loss with chronic microvascular ischemic changes. Please note that all CT scans at this facility use dose modulation, iterative reconstruction, and/or weight-based dosing when appropriate to reduce radiation dose to as low as reasonably achievable. Dictated by Rambo Tyson MD @ 12/27/2024 5:30:46 PM (Electronically Signed)
--- OUTSIDE RECORDS SUMMARY | 2024-12-27 17:12 | XMS_ITS | Clinical Summary ---
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 Right: Knee [employer] 01/23/2017 6191-1-001 / / [id number] Imp Baseplate Tibial Howm Tri 3 5520-B-300 Implanted:Qty: 1 on 06/01/2015 by Perfecto Dailey MD at [facility] Right: Knee [employer] 11/25/2019 5520-B-300 / / [id number] Imp Comp Fem Strk Triathln Cr Rt 4 [id number]-[id number] Implanted:Qty: 1 on 06/01/2015 by Perfecto Dailey MD at [facility] Right: Knee [employer] 03/25/2020 5510-F-402 / / [id number] Imp Comp Patella Tri X3 Ps 31x9mm Implanted:Qty: 1 on 06/01/2015 by Perfecto Dailey MD at [facility] Right: Knee [employer] 01/24/2020 5550-G-319 / / [id number] Imp Insert Tibial Howm Tri 3x11mm 5530-G-311 Implanted:Qty: 1 on 06/01/2015 by Perfecto Dailey MD at [facility] Right: Knee [employer] 03/25/2020 5530-G-311 / / [id number] Insurance MEDICARE [facility] Advance Directives For more information, please contact: [phone] * Full Code (Latest Code Status on File) Date Activated Date Inactivated Comments 06/03/2015 5:00 PM 05/20/2019 7:33 AM * Full Code Date Activated Date Inactivated Comments 06/01/2015 12:47 PM 06/03/2015 5:00 PM * No Code Status Date Activated Date Inactivated Comments 07/29/2004 2:53 PM 07/29/2004 2:53 PM Care Teams Curber Relationship Specialty Start Date End Date Gaby Collins PCP - General Family Practice 08/11/13
--- OUTSIDE RECORDS SUMMARY | 2024-12-27 17:12 | XMS_ITS | Clinical Summary ---
Author Organization [facility] Address [address] [place] [address] Care Team Providers Care Senior Ui Ux Developer Name Role Phone Gaby Collins MD Primary Care Provide r Lenny Hernandez MD Unavailable Vonnie Barragan MD Unavailable Unavailable David Jorgensen MD Unavailable Parisa Phillips MD Unavailable [phone] Lizzette Batista WASTEWATER PROJECT MANAGER Unavailable Mirtha Petty NP Unavailable Allergies Active [...] Other reaction(s): MYALGIA Sulfamethizole Arthralgia 10/15/2023 Medications cctor-5-RGI-EPA-f elisabet oil (FISH OIL) 300-1,000 mg capsule [...] DAYS. 180 Capsule 3 11/27/19 25 Active mmfymt-mlvkilvj-f mylase (Creon) 36,000-114,000- 180,000 unit capsuleIndication s:Pancreatic [...] Type Department Care Team Description 12/19/2024 Telephone [facility] [address] [facility] [address] Gaby Collins MD Results (Mammogram) 12/10/2024 7:40 AM CDT Ancillary Procedure [facility] [address] [place] [address] 12/10/2024 Travel 12/02/2024 Telephone [facility] [address] [place] [address] [address] Gaby Collins MD Results (lipid panel 11/27/24 ) 11/27/2024 7:50 AM MANAGER REVIEW Office Visit [facility] [address] [place] [address] Gaby Collins MD Medicare ANNUAL (subsequent) Visit (74 yo Female/Having some break out skin around nose) 11/27/2024 Travel 11/03/2024 9:00 AM MANAGER REVIEW Office Visit [facility] [address] [place] [address] Lenny Hernandez MD Follow Up 11/03/2024 Travel 11/02/2024 Travel 10/27/2024 7:27 AM MANAGER REVIEW - 10/27/2024 11:59 PM MANAGER REVIEW Hospital Encounter [facility] [address] [place] [address] Lenny Hernandez MD IPMN (intraductal papillary mucinous neoplasm) 10/27/2024 Travel 10/23/2024 Refill [facility] [address] [place] [address] Gaby Collins MD Refill Request (amoxicillin-clavula karl 875-125 mg tablet (AUGMENTIN)) 10/20/2024 Telephone [facility] [address] [place] [address] Lenny Hernandez MD Imaging 10/17/2024 Refill [facility] [address] [place] [address] Gaby Collins MD Refill Request (Pantoprazole) from [...] on file Legal Sex Female 7:13 AM MANAGER REVIEW Gender Identity Not on file Sexual Orientation Not on file Obstetrics History Para Term AB IAB SAB Ectopic Multiple Livin g Live Births 2 2 1 1 2 Date Outcome GA Total Labor Labor/2nd/3rd Weight Sex Type Anes PTL Lauren A1 A5 Name Clin Term Last Filed Vital Signs Vital Sign Reading Time Taken Comments Blood Pressure 153/69 11/27/2024 8:16 AM MANAGER REVIEW Pulse 67 11/27/2024 8:16 AM MANAGER REVIEW Temperature 36.9 C (98.4 F) 11/03/2024 8:50 AM MANAGER REVIEW Respiratory Rate 18 09/16/2024 10:11 AM MANAGER REVIEW Oxygen Saturation 98% 11/27/2024 8:12 AM MANAGER REVIEW Inhaled Oxygen Concentration - - Weight 64.1 kg (141 lb 6.4 oz) 11/27/2024 8:12 A M MANAGER REVIEW Height 157.5 cm (5' 2) 11/27/2024 8:12 AM MANAGER REVIEW Body Mass Index 25.86 11/27/2024 8:12 AM MANAGER REVIEW Plan of Treatment Upcoming Encounters Date Type Department Care Team (Late st Contact Info) Description 01/12/2025 8:45 AM CDT Orders Only [facility] [address] [place] [address] [place] 01/15/2025 10:00 AM CDT Office Visit [facility] [place] [address] [facility] [place] [phone] Parisa Phillips MD [address] [place], [place] [id number] Health Maintenance Due Date Last Done Comments [...] than 140/90 Blood Pressure No Ally Lloyd, BRIMMER BLOCKER Medical Devices Implanted Type Area Program Supervisor Device Identifier Shelf Expiration Date Model / Serial / Lot Mesh Ventral 4x6in Ventralightst - [id number] Implanted:Qty: 1 on 02/25/2020 by Lenny Hernandez MD at [facility] Abdomen [employer] 09/27/2021 [id number] / / [id number] Stent Biliary [id number] Viabil No Hole - [id number] Implanted:Qty: 1 on 04/28/2020 by David Jorgensen MD at [facility] [employer] [id number] / / [id number] Mesh Ventral 4x6in Ventralight St - [id number] Implanted:Qty: 1 on 05/27/2021 by Lenny Hernandez MD at [facility] [employer] 03/28/2022 [id number] / / [id number] Stent Biliary [id number] Viabil No Hole - [id number] Implanted:Qty: 1 on 07/08/2021 by David Jorgensen MD at [facility] [employer] 01/31/2024 [id number] / [id number] / [id number] Stent Biliary [id number] Viabil No Hole - [id number] Implanted:Qty: 1 on 08/30/2021 by David Jorgensen MD at [facility] [employer] 11/30/2023 [id number] / / [id number] Procedures Procedure Name Priority Date/Time Associated Diagnosis Comments XR MAMMO MARLEE BILAT SCREEN Routine 12/10/2024 7:47 AM CDT Visit for screening mammogram LIPID PANEL W REFLEX MEASURED LDL Routine 11/27/2024 9:16 AM MANAGER REVIEW Cerebrovascular accident (CVA), unspecified mechanism (HC) SCAN-COLONOSCOPY 10/30/2024 11:3 0 AM MANAGER REVIEW MR ABDOMEN PANCREAS WWO Routine 10/27/2024 10:38 AM MANAGER REVIEW IPMN (intraductal papillary mucinous neoplasm) XR DXA [...] care provider. XR MAMMO MARLEE BILAT SCREEN [[id number]] CLINICAL HISTORY: This is an asymptomatic 74 [...] W REFLEX MEASURED LDL (11/27/2024 9:16 AM MANAGER REVIEW) CHOLESTEROL, TOTAL 117 <200 mg/dL [facility] [...] LDL-C. Nash NEAL et al. JAMES. 2013;310(19): 9550-0634 (http://education.NetMovies/faq/WOJ446) CHOL/HDLC RATIO 2.4 <5.0 (calc) [facility] NON HDL CHOLESTEROL 69 <130 mg/dL (calc) [employer] [facility] Comment: For patients with diabetes plus 1 major ASCVD risk factor, treating to a non-HDL-C goal of <100 mg/dL (LDL-C of <70 mg/dL) is considered a therapeutic option. Blood BLOOD SPECIMEN / Unknown 11/27/2024 9:16 AM MANAGER REVIEW 11/27/2024 9:16 AM MANAGER REVIEW Narrative [facility] - 11/28/2024 2:43 AM MANAGER REVIEW FASTING:YES FASTING: YES Gaby Collins MD CHEMISTRY Final Result [facility] [address] [place] [address], [facility] [address] [place] [address] * SCAN-COLONOSCOPY (10/30/2024 11:30 AM MANAGER REVIEW) Narrative Procedure Note Lindsey Dan MD - 10/30/2024 10:32 AM CST [facility] [address] [address], [address], [place] [address] Patient Name: Malinda Putnam Gender: Female Exam Date: 10/30/2024 Visit Number: [id number] Age: 74 Years Date of : 1950 Attending MD: Lindsey Dan MD Medical Record#: [id number] Procedure: Colonoscopy Indications: Previous adenomatous polyp(s) Referring [...] signed by: Ortiz Campbell MD Interpreted at [facility], [address] [place] [id number] Orders Instruction(s)/Education: Instruction/Education Timeframe Assessment Colon Cancer Prevention K63.5 Colon Polyps K63.5 Diverticulosis/Diverticulitis K57.90 Final Plan: The [place] Preventive Services Task Force recommends againstroutine screening for colorectal cancer in adults age 76 to 85 years.There may be considerations that support colorectal cancer screening in anindividual patient. _Electronically signed by: Linsdey Dan MD 10/30/2024 cc: Gaby Collins MD cc: Gaby Collins MD Lindsey Dan MD OTHER Final R esult * MR ABDOMEN PANCREAS WWO (10/27/2024 10:38 AM MANAGER REVIEW) Anatomical Region Laterality Modality Abdomen, PANCREAS Magnetic Reson ance 10/27/2024 2:28 PM MANAGER REVIEW Narrative 10/27/2024 2:28 PM MANAGER REVIEW For Patients: As a result of the [...] Patients: Results are automatically released to your [facility] ([email or web address]) account once available, in compliance with federal regulations. This means that you may see your results before your provider has had a chance to review them. Please allow 2-3 business days for your provider to comment on the results. XR DXA Bone Mineral Density (BMD) EXAM LOCATION: [facility] [address] [facility] [address] PATIENT NAME: Malinda Putnam DATE OF : [...] two scanners are made by the same manager meeting. PROCEDURE: Dual-energy x-ray absorptiometry performed with routine [...] alexandre Non-React alexandre 02/19/2020 2:14 PM CDT [facility] Comment:Antibodies to HCV no t detected; does not exclude the possibility of exposure to HCV. Blood BLOOD SPECIMEN / Unknown Venipuncture / Unknown 02/19/2020 9:00 AM CDT 02/19/2020 9:00 AM CDT Gaby Collins MD SEND OUTS Final Result [facility] [address] [place] [address], from Last 3 Months or Most Recently Relevant to Health Maintenance Additional Health Concerns Infection Onset Date Last Indicated Rule-Out C.diff 07/17/2024 07/17/2024 Insurance BLUE CROSS FALSE PASS BLUE MR PB ONLY MEDICARE PART B HB ONLY BLUE CROSS FALSE PASS BLUE HB ONLY MEDICARE PART A HB [...] Status Discussion: Not Discussed Care Teams Senior Ui Ux Developer Relationship Specialty Start Date End Date Gaby Collins MD [address] [place] [address] PCP - General Family Practice 07/15/19 Lenny Hernandez MD [address] [place] [address] Consulting Physician Surgery - General 11/29/19 Vonnie Barragan MD Hepatobiliary and Pancreatic Surgery Resident 02/25/20 [place] [address] [facility] [address] [place] [address] Gastroenterology Gastroenterology 05/20/20 Parisa Phillips MD [address] [facility] [place] [address] Hematology Hematology and Oncology 11/30/20 Lizzette Batista NP [address] [facility] [place] [address] Hematology Nurse Practitioner - Family 11/30/20 Mirtha Petty NP [address] [place] [address] Nurse Practitioner - Gerontology 09/22/23
--- OUTSIDE RECORDS SUMMARY | 2024-12-27 17:12 | XMS_ITS | Continuity of Care Document ---
Author Organization [facility] Address [address] [address] [place] [address] Phone Care Team Providers Care Visual Merchandising Manager Name Role Phone Veronika Moyer CRNA [...] Diagnoses Date Provider Providers Copied on Encounter [facility] JOEL MUR[address] [address], [place], [id number], [place] tel:[phone] [facility] No Information 5 João Banda. [address] [facility], [address], [place], [id number] , [place]. tel:[phone] Referring Provider: Lindsey Dan MD, [address] [facility] [address], [place], [address]. [phone] [facility], [address] [address], [place], [address], [place] tel:[phone] [facility] GI Symptoms or Concerns (chief [...] serrated colon polyps 5 Ni Portillo . [facility], [facility] [address], [place], [address] , [place]. tel:[phone] Referring Provider: Gaby Collins MD , [address] [place] [address], [address]. tel:[phone] [facility], [address] [address], [place], [address], [place] tel:[phone] [facility] No Information 5 Sourav Rich. [facility], [facility] [address], [place], [address] , [place]. tel:[phone] [facility], [address] [address], [place], [address], [place] tel:[phone] [facility] Other specified abnormal findings of blood chemistry 4 Joslyn Hernandez. [address] [facility], [facility] [address], [place], [address] , [place]. tel:[phone] Referring Provider: David Jorgensen MD, [address] [facility] [address], [place], [address]. [phone] [facility], [address] [address], [place], [address], [place] tel:[phone] [facility] Abnormal liver function test 4 Joslyn Hernandez. [address] [facility], [address], [place], [address] , [place]. tel: [phone] [facility], [address] [address], [place], [address], [place] tel:[phone] [facility] No Information 4 Diana Harman. [address] [facility], [address], [place], [address] , [place]. tel: [phone] Referring Provider: Referral Self, USE FOR SELF REFERRALS. [facility], [address] [address], [place], [address], [place] tel:[phone] [facility] Pancreatic cyst 4 Diana Harman. [address] [facility], [address], [place], [address] , [place]. tel: [phone] Offic/outpt E&m Estab Mod-hi 2 [facility], [address] [address], [place], [address], [place] tel:[phone] [facility] Comment (chief complaint) Bile duct strictureCholan gitisH/O Whipple procedureAcquir ed absence of other specified parts of digestive tractPancreas cyst 4 Diana Harman. [address] [facility], [address], [place], [address] , [place]. tel: [phone] Referring Provider: Referral Self, USE FOR SELF REFERRALS. [facility], [address] [address], [place], [address], [place] tel:[phone] [facility] Fever, unspecified 4 Joslyn Hernandez. [address] [facility], [address], [place], [address] , [place]. tel: [phone] Referring Provider: David Jorgensen MD, [address] [facility] [address], [place], [address]. tel:[phone] [facility], [address] [address], [place], [address], [place] tel:[phone] [facility] Right upper quadrant abdominal painFever, unspecified 4 Terrence Reynolds. [address] [facility], [address], [place], [address] , [place]. tel: [phone] [facility], [address] [address], [place], [address], [place] tel:[phone] [facility] Fever, unspecified 4 Joslyn Hernandez. [address] [facility], [address], [place], [address] , [place]. tel: [phone] [facility], [address] [address], [place], [address], [place] tel:[phone] [facility] No Information 4 Diana Harman. [address] [facility], [address], [facility] [place], [address] , [place]. tel: [phone] Offic/outpt E&m Estab Low-mod [facility], [address] [address], [place], [address], [place] tel:[phone] [facility] GI Symptoms or Concerns (chief complaint) Ventral hernia without obstruction or gangreneH/O Whipple procedureAcquir ed absence of other specified parts of digestive tract Dec- 4 Diana Harman. [address] [facility], [address], [facility] [place], [address] , [place]. tel: [phone] Referring Provider: Referral Self, USE FOR SELF REFERRALS. [facility], [address] [address], [place], [address], [place] tel:[phone] [facility] No Information 4 Pilar Fam. [address] [facility], [address], [place], [address] , [place]. tel: [phone] Init Hosp-da E&m Mod Severity [facility], [address] [address], [place], [address], [place] tel:[phone] [facility] No Information 4 Pilar Fam. [address] [facility], [address], [place], [address] , [place]. tel: [phone] Referring Provider: Gaby Suarez, [address] [facility], [place], [address]. tel:[phone] Established Level 4 [facility], [address] [address], [place], [address], [place] tel:[phone] [facility] GI Symptoms or Concerns (chief complaint) Cholangitis 4 Joslyn Hernandez. [address] [facility], [facility] [address], [place], [address] , [place]. tel: [phone] Referring Provider: Gaby Suarez, [address] [facility], [place], [address]. tel:[phone] [facility], [address] [address], [place], [address], [place] tel:[phone] [facility] No Information 4 Joslyn Hernandez. [address] [facility], [address], [place], [address] , [place]. tel: [phone] [facility], [address] [address], [place], [address], [place] tel:[phone] [facility] Abnormal liver function test 4 Joslyn Hernandez. [address] [facility], [address], [place], [address] , [place]. tel: [phone] Init Hosp-da E&m Mod Severity [facility], [address] [address], [place], [address], [place] tel:[phone] [facility] No Information 3 Malinda Chavezvitha. [address] [facility], [address], [place], [address] , [place]. tel: [phone] Referring Provider: Mirtha Petty NP, [address] [facility] [address], [place], [address]. tel:[phone] [facility], [address] [address], [place], [address], [place] tel:[phone] [facility] No Information 3 Emily Bunn. [address] [facility], [address], [place], [address] , [place]. tel: [phone] Referring Provider: Gaby Suarez, [address] [place] [address], [place], [address]. [phone] [facility], [address] [address], [place], [address], [place] tel:[phone] [facility] Bile duct stricture 2 Joslyn Hernandez. [address] [facility], [address], [place], [address] , [place]. tel: [phone] [facility], [address] [address], [place], [address], [place] tel:[phone] [facility] Bile duct stricture 2 Joslyn Hernandez. [address] [facility], [address], [place], [address] , [place]. tel: [phone] [facility], [address] [address], [place], [address], [place] tel:[phone] [facility] No Information 1 Joslyn Hernandez. [address] [facility], [address], [place], [address] , [place]. tel: [phone] [facility], [address] [address], [place], [address], [place] tel:[phone] [facility] No Information 1 Joslyn Hernandez. [address] [facility], [address], [place], [address] , [place]. tel: [phone] Referring Provider: David Jorgensen MD, [address] [facility] [address], [place], [address]. tel:[phone] [facility], [address] [address], [place], [address], [place] tel:[phone] [facility] Fever, unspecified fever cause 1 Joslyn Hernandez. [address] [facility], [address], [place], [address] , [place]. tel: [phone] [facility], [address] [address], [place], [address], [place] tel:[phone] [facility] Bile duct stricture 1 Joslyn Hernandez. [address] [facility], [address], [place], [address] , [place]. tel: [phone] [facility], [address] [address], [place], [address], [place] tel:[phone] [facility] No Information 1 Joslyn Hernandez. [address] [facility] [address], [address], [place], [address] , [place]. tel: [phone] Referring Provider: David Jorgensen MD, [address] [facility] [address], [place], [address]. tel:[phone] [facility], [address] [address], [place], [address], [place] tel:[phone] [facility] No Information 1 Joslyn Hernandez. [address] [facility], [address], [place], [address] , [place]. tel: [phone] [facility], [address] [address], [place], [address], [place] tel:[phone] [facility] Bile duct stricture 1 Joslyn Hernandez. [address] [facility], [address], [place], [address] , [place]. tel: [phone] [facility], [address] [address], [place], [address], [place] tel:[phone] [facility] Bile duct stricture 1 Joslyn Hernandez. [address] [facility], [address], [place], [address] , [place]. tel: [phone] [facility], [address] [address], [place], [address], [place] tel:[phone] [facility] No Information 1 Joslyn Hernandez. [address] [facility], [address], [place], [address] , [place]. tel: [phone] Referring Provider: Gaby Suarez, [address] [place] [address], [place], [address]. tel:[phone] [facility], [address] [address], [place], [address], [place] tel:[phone] [facility] Abnormal liver function tests 1 Joslyn Hernandez. [address] [facility], [address], [place], [address] , [place]. tel: [phone] [facility], [address] [address], [place], [address], [place] tel:[phone] [facility] Bile duct stricture 0 Joslyn Hernandez. [address] [facility] [address], [address], [place], [address] , [place]. tel: [phone] [facility], [address] [address], [place], [address], [place] tel:[phone] [facility] No Information 0 Joslyn Hernandez. [address] [facility], [address], [place], [address] , [place]. tel:[phone] Referring Provider: Gaby Collins MD K, [address] [facility], [place], [address]. tel:[phone] [facility], [address] [address], [place], [address], [place] tel:[phone] [facility] No Information 0 Joslyn Hernandez. [address] [facility], [address], [place], [address] , [place]. tel:[phone] Subsqt Hosp-da E&m Minr Compl [facility], [address] [address], [place], [address], [place] tel:[phone] [facility] No Information 0 Awais Salguero. [address] [facility], [address], [place], [address] , [place]. tel:[phone] Referring Provider: Noemy Coelho, [address] [facility] [address], [place], [address]. [phone] [facility], [address] [address], [place], [address], [place] tel:[phone] [facility] Bile duct stricture 0 Joslyn Hernandez. [address] [facility], [address], [facility] [place], [address] , [place]. tel:[phone] Subsqt Hosp-da E&m Minr Compl [facility], [address] [address], [place], [address], [place] tel:[phone] [facility] No Information 0 Rafa Cancino. [address] [facility], [address], [place], [address] , [place]. [phone] Referring Provider: Gaby Suarez, [address], [place], [address]. [phone] [facility], [address] [address], [place], [address], [place] tel:[phone] [facility] No Information 0 2 0 Terrence Saavedra [address] [facility], [address], [place], [address] , [place]. tel:[phone] Referring Provider: Gaby Suarez, [address], [place], [address]. [phone] Subsqt Hosp-da E&m Minr Compl [facility], [address] [address], [place], [address], [place] tel:[phone] [facility] No Information 0 Antonino MURPHY Ela. [address] [facility], [address], [place], [address] , [place]. [phone] Referring Provider: Gaby Suarez, [address], [place], [address]. [phone] Init [facility]-da E&m Mod Severity [facility], [address] [address], [place], [address], [place] tel:[phone] [facility] No Information 0 Florinda Ashford. [address] [facility], [address], [place], [address] , [place]. [phone] Referring Provider: Gaby Suarez, [address], [place], [address]. tel:[phone] [facility], [address] [address], [place], [address], [place] tel:[phone] [facility] Pancreas cyst 0 9 Terrence Saavedra [address] [facility] [address], [address], [place], [address] , [place]. tel: [phone] [facility], [address] [address], [place], [address], [place] tel:[phone] [facility] No Information 9 Terrence Reynolds. [address] [facility], [address], [place], [address] , [place]. tel: [phone] Referring Provider: Latoya Ocampo MD, [address] [facility] [address], [place], [address]. tel:[phone] [facility], [address] [address], [place], [address], [place] tel:[phone] [facility] Pancreas cyst 9 Terrence Reynolds. [address] [facility], [address], [place], [address] , [place]. tel: [phone] [facility], [address] [address], [place], [address], [place] tel:[phone] [facility] Pancreas cyst 8 Terrence Saavedra [address] [facility], [address], [place], [address] , [place]. tel: [phone] [facility], [address] [address], [place], [address], [place] tel:[phone] [facility] No Information 8 Terrence Saavedra [address] [facility], [address], [place], [address] , [place]. tel: [phone] Referring Provider: Gaby Suarez, [address] [place] [address], [place], [address]. [phone] [facility], [address] [address], [place], [address], [place] tel:[phone] [facility] Pancreas cyst Aug-2 7 Terrence Reynolds. [address] [facility] [address], [address], [place], [address] , [place]. tel: [phone] [facility], [address] [address], [place], [address], [place] tel:[phone] [facility] Pancreas cyst Aug-0 6 Terrence Saavedra [address] [facility], [address], [place], [address] , [place]. tel: [phone] [facility], [address] [address], [place], [address], [place] tel:[phone] [facility] Pancreas cyst 5 Terrence Saavedra [address] [facility] [address], [address], [place], [address] , [place]. tel: [phone] [facility], [address] [address], [place], [address], [place] tel:[phone] [facility] Pancreat Cyst/pseudocyst Pseudocyst of pancreas 4 Terrence Saavedra [address] [facility] [address], [address], [place], [address] , [place]. tel: [phone] [facility], [address] [address], [place], [address], [place] tel:[phone] [facility] Pancreat Cyst/pseudocyst 4 Terrence Saavedra [address] [facility], [address], [place], [address] , [place]. tel: [phone] [facility], [address] [address], [place], [address], [place] tel:[phone] [facility] No Information 3 Terrence Saavedra [address] [facility] [address], [address], [place], [address] , [place]. tel: [phone] Referring Provider: Gaby Suarez, [address] [place] [address], [place], [address]. [phone] [facility], [address] [address], [place], [address], [place] tel:[phone] [facility] No Information 1 Terrence Saavedra [address] [place] [address], [place], [address] , [place]. tel: [phone] [facility], [address] [address], [place], [address], [place] tel:[phone] [facility] No Information 1 Terrence Saavedra [address] [place] [address], [place], [address] , [place]. tel: [phone] Referring Provider: Rina Chery, [address] [place] [address], [address]. tel:[phone] [facility], [address] [address], [place], [address], [place] tel:[phone] [facility] No Information 0 Terrence Saavedra [address] [place] [address], [place], [address] , [place]. tel: [phone] Referring Provider: Rina Chery, [address] [place] [address], [address]. tel:[phone] Offic/outpt E&m Estab Low-mod [facility], [address] [address], [place], [address], [place] tel:[phone] [facility] F/U EUS (chief complaint) Pancreat Cyst/pseudocyst Heartburn 0 Terrence Saavedra [address] [place] [address] 500, [place], [address] , [place]. tel: [phone] [facility], [address] [address], [place], [address], [place] tel:[phone] [facility] No Information 9 Terrence Saavedra [address] [facility], [address], [place], [address] , [place]. tel:[phone] Family History Family Member Type Diagnosis Age [...] and acellular pertussis vaccine, adsorbed administered Note: [facility] b i-directional interface ; Source: Other Registry Influenza, high-dose, split virus, trivalent, injectable, preservative free administered Note: [facility] bi-direct ional interface ; Source: Other Registry influenza, high dose seasona l, preservative-free administered Note: [facility] bi-direct ional interface ; Source: Other Registry Prevnar 13 administered Note: [facility] bi-d irectional interface ; Source: Other Registry Influenza, high-dose, split virus, trivalent, injectable, preservative free administered Note: [facility] bi-direct ional interface ; Source: Other Registry influenza, high dose seasona l, preservative-free administered Note: [facility] bi-direct ional interface ; Source: Other Registry [...] bi-directional interface ; Source: Other Registry Novel [id number], all formulations administered Note: [facility] bi-direct ional interface ; Source: Other Registry tetanus and diphtheria toxoi ds, adsorbed, preservative free, for adult use (5 Lf of tetanus toxoid and 2 Lf of diphtheria toxoid) administered Note: [facility] bi-direct ional interface ; Source: Other Registry Payers Payer name Insurance type Covered republican ID Authoriza tion(s) Blue [employer] [place] [employer] BL [id number] Social History Type Description Quantity Date Captured [...]
--- NOTE | 2024-12-27 17:30 | ED.WEAKNESS ---
HPI - Weakness General Date Seen: 12/27/24 Chief complaint: Unspecified Complaint, Adult Stated complaint: Heat flash, fuzzy in the head Time Seen by Provider: 12/27/24 16:31 Source: patient and family Mode of arrival: ambulatory Limitations: no limitations History of Present Illness HPI Narrative: Patient is a very nice 74-year-old female presents here with her significant other for evaluation of an episode that occurred approximately 45 minutes ago she was vacuuming in house, bent over, felt a little the room was starting to spin around, she sat up, felt flushed in her face, and somewhat weak. The feeling of the room spinning did go way, but she still has this week feeling/fuzziness she describes in her head, it is not her vision, cause she is tells me she can see fine, his that she just feels not quite well. She admits that she does feel better than when this 1st occurred. This is not at all associated with numbness tingling or weakness in the extremities. She denies a headache, denies visual changes, her came in from the bar and checked her pulse, which was elevated for her at 80. And her blood pressure which was elevated at 160 systolic. They decided to come in. She does have a past history of a stroke in the past, which she is treated for anti platelet agents, has been taking these normally. Does have a history also chronically low sodium at 1:28 a.m.. Denies any nausea vomiting diarrhea fevers chills chest pain shortness of breath associated with this she was able to walking herself says she does not feel like she is listing to 1 side, and has absolutely no weakness. Related Data Home Medications ?Medication ?Instructions ?Recorded ?Confirmed acetaminophen 500 mg tablet 1,000 mg PO Q6-8H PRN 04/26/22 07/03/24 amlodipine 2.5 mg tablet 2.5 mg PO DAILY 04/26/22 07/03/24 ascorbic acid (vitamin C) 1,000 mg 1 g PO DAILY 04/26/22 07/03/24 tablet aspirin 81 mg tablet,delayed 81 mg PO DAILY 04/26/22 07/03/24 release clopidogrel 75 mg tablet 75 mg PO DAILY 04/26/22 07/03/24 cqgoad-[id number]-rpjhbmk 3 cap PO TID 04/26/22 07/03/24 36,000-114,000-180,000 unit capsule,delay rel multivitamin (Multiple Vitamins 1 tab PO QAM 04/26/22 07/03/24 tablet) pantoprazole 40 mg tablet,delayed 40 mg PO DAILY 04/26/22 07/03/24 release rosuvastatin 10 mg tablet 5 mg PO DAILY 04/26/22 07/03/24 sennosides 8.6 mg tablet 4.3 mg PO DAILY PRN 04/26/22 07/03/24 sodium chloride 1,000 mg soluble 1 mg PO BID 04/26/22 07/03/24 tablet hydroxyurea 500 mg capsule 500 mg PO DAILY 05/05/22 07/03/24 doxycycline monohydrate 100 mg 100 mg PO PRN 03/14/23 03/14/23 capsule Previous Rx's ?Medication ?Instructions ?Recorded sulfamethoxazole 800 1 tab PO BID #14 tabs 10/26/24 mg-trimethoprim 160 mg tablet Allergies Allergy/AdvReac Type Severity Reaction Status Date / Time ciprofloxacin Allergy Intermediate Myalgia Verified 12/27/24 16:38 doxycycline Allergy Intermediate Headache Verified 12/27/24 16:38 hydromorphone Allergy Intermediate Slurred Verified 12/27/24 16:38 speech simvastatin Allergy Intermediate MYALGIA Verified 12/27/24 16:38 oxycodone Allergy Mild Unknown Verified 12/27/24 16:38 pilocarpine Allergy Mild HEART Verified 12/27/24 16:38 RACING, BLURRED VISION promethazine Allergy Mild Unknown Verified 12/27/24 16:38 propranolol Allergy Mild Unknown Verified 12/27/24 16:38 scopolamine Allergy Mild Unknown Verified 12/27/24 16:38 Beta Adrenergic Blockers Allergy Mild Unknown Uncoded 03/14/23 08:41 Review of Systems Status of ROS: Reports: 10 or more systems reviewed and unremarkable except as noted in History and below [facility] Medical History 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.6 - Benign neoplasm of pancreas (ICD-10) GERD (gastroesophageal reflux disease) ?K21.9 - Gastro-esophageal reflux disease without esophagitis (ICD-10) Atrophic vaginitis ?N95.2 - Postmenopausal atrophic vaginitis (ICD-10) Mixed hyperlipidemia ?E78.2 - Mixed hyperlipidemia (ICD-10) Ovarian cyst ?N83.209 - Unspecified ovarian cyst, unspecified side (ICD-10) Surgical History Hx of ovarian cystectomy ?Z98.890 - Other specified postprocedural states (ICD-10) ?Z87.42 - Personal history of other diseases of the female genital tract (ICD-10) History of incisional hernia repair ?Z98.890 - Other specified postprocedural states (ICD-10) ?Z87.19 - Personal history of other diseases of the digestive system (ICD-10) Hx of cholecystectomy ?Z90.49 - Acquired absence of other specified parts of digestive tract (ICD-10) Hx of appendectomy ?Z90.49 - Acquired absence of other specified parts of digestive tract (ICD-10) History of carpal tunnel release ?Z98.890 - Other specified postprocedural states (ICD-10) Hx of reconstruction of anterior cruciate ligament tear ?Z98.890 - Other specified postprocedural states (ICD-10) History of ERCP ?Z98.890 - Other specified postprocedural states (ICD-10) 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) ?Z90.49 - Acquired absence of other specified parts of digestive tract (ICD-10) History of hysterectomy ?Z90.710 - Acquired absence of both cervix and uterus (ICD-10) Knee joint replacement status ?Z96.659 - Presence of unspecified artificial knee joint (ICD-10) 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) ?Z96.642 - Presence of left artificial hip joint (ICD-10) Social History Smoking Status: Former smoker Do you use any of these nicotine containing products: None Second hand tobacco smoke exposure: No How often do you have a drink containing alcohol: never How often do you have six or more drinks on one occasion: Never AUDIT-C Alcohol total score: 0 Non-prescribed substance use: denies use Caffeine: Yes (daily) Are you using contraception or practicing any form of control: No service: No Exam Narrative: Exam Narrative: Patient is seen in room 2 she is in no apparent distress she is alert oriented x3, GCS is 15/15 and her NIH screen is 0. Pupils equal round reactive to light her visual negron are normal on testing there is no nystagmus on testing, little bit more cerumen in her left ear versus right, mouth opening normal cranial nerves 3-12 are normal carotid upstrokes are equal bilaterally, with no bruits JVP is flat her neck is supple there is no meningismus, chest is good air entry bilateral with no wheezing crackles noted heart sounds are normal, no clicks murmurs or gallops her abdomen is soft there show guarding organomegaly bowel sounds are normal she moves all extremities independently well fine were movements of fingers nose testing are normal, she is right-hand dominant, distal and proximal muscle strength is normal, proprioception is normal, both heel-hernandez and hands. She is able to sit up no truncal ataxia. Skin reveals no petechiae rashes, Const: Vital Signs, click to edit/add: Vital Signs - 24 hr 12/27/24 16:33 12/27/24 17:35 12/27/24 17:45 Temperature 99.3 F Pulse Rate 67 66 Pulse Rate [Left P ulse Oximeter] 74 Respiratory Rate 16 Blood Pressure Blood Pressure [Ri ght Upper Arm] 181/81 H Pulse Oximetry 97 97 96 Oxygen Delivery Me thod Room Air 12/27/24 18:00 12/27/24 18:01 12/27/24 18:15 Temperature Pulse Rate 68 67 65 Pulse Rate [Left P ulse Oximeter] Respiratory Rate 16 Blood Pressure 155/75 H Blood Pressure [Ri ght Upper Arm] Pulse Oximetry 96 95 95 Oxygen Delivery Me thod Room Air Documenting provider has reviewed patient's vital signs: yes Course Course ED Course: Patient feels back to baseline she has no complaints, I went over with her that I think this was an episode of vertigo she had, I am not thinking that this was a TIA, given the symptoms that she had, nevertheless she has improved. I think she can go home at this point. We went over worsening signs and symptoms were she should re present, she was comfortable with this. Vital Signs Vital signs: Initial Vital Signs Temperature 99.3 F 12/27/24 16:33 Temperature Source Temporal Artery Scan 12/27/24 16:33 Pulse Rate 74 12/27/24 16:33 Respiratory Rate 16 12/27/24 16:33 Blood Pressure 181/81 H 12/27/24 16:33 Blood Pressure Mean 114 H 12/27/24 16:33 Blood Pressure Position Sitting 12/27/24 16:33 Pulse Oximetry 97 12/27/24 16:33 Oxygen Delivery Method Room Air 12/27/24 16:33 Vital Signs Temperature 99.3 F 12/27/24 16:33 Pulse Rate 74 12/27/24 16:33 Respiratory Rate 16 12/27/24 16:33 Blood Pressure 181/81 H 12/27/24 16:33 Pulse Oximetry 97 12/27/24 16:33 Oxygen Delivery Method Room Air 12/27/24 16:33 Temperature 99.3 F 12/27/24 16:33 Pulse Rate 65 12/27/24 18:15 Respiratory Rate 16 12/27/24 18:01 Blood Pressure 155/75 H 12/27/24 18:01 Pulse Oximetry 95 12/27/24 18:15 Oxygen Delivery Method Room Air 12/27/24 18:01 MDM - Weakness MDM Narrative Medical decision making narrative: Life-threatening differential diagnosis considered include stroke, coronary artery disease, pneumonia, and heart failure. Other differential diagnosis include but are not limited to electrolyte imbalances, anemia, medication reactions, and urinary tract infection I do think this is related to of vertiginous episode, coupled with likely bit of anxiety, I am seeing no evidence of a stroke on today's examination I will however do a CT of her head, just to rule out any obvious abnormality and we will check her electrolytes and an EKG also. Medical Records Attestation: I reviewed the patient's medical records. Lab Data Attestation: I reviewed the patient's lab results. Labs: Lab Results 12/27/24 Range/Units 17:24 WBC 6.69 (4.50-11.00) K/uL RBC 3.68 L (4.00-5.20) m/uL Hgb 12.2 (12.0-16.0) gm/dL Hct 37.3 (33.0-51.0) % MCV 101 H (80-100) fL MCH 33 (26-34) pg MCHC 33 (32-36) gm/dL RDW Coeff of Erich 12.8 (11.5-15.5) % Plt Count 349 (140-440) K/uL Neut % (Auto) 72.4 H (42.0-72.0) % Lymph % (Auto) 15.4 L (20-44) % Saunders % (Auto) 9.4 (0.0-11.0) % Eos % (Auto) 1.5 (0.0-7.0) % Baso % (Auto) 0.9 (0.0-3.0) % Neut # (Auto) 4.80 (1.7-7.0) K/uL Lymph # (Auto) 1.00 (0.90-2.90) K/uL Saunders # (Auto) 0.60 (0.00-0.90) K/UL Eos # (Auto) 0.10 (0.00-0.50) K/uL Baso # (Auto) 0.06 (0.00-0.30) K/uL Abs Immat Gran (auto) 0.03 (0.00-0.30) K/uL Imm/Tot Granulo (auto) 0.4 % Sodium 132 L (135-149) mmol/L Potassium 4.0 (3.6-5.1) mmol/L Chloride 98 (96-114) mmol/L Carbon Dioxide 28 (20-32) mmol/L Anion Gap 6 L (7-15) mEq/L BUN 18 (7-30) mg/dL Creatinine 0.5 (0.5-1.5) mg/dL Estimated Creat Clear 37.85 Estimated GFR 97 ml/min Glucose 76 (60-115) mg/dL Calcium 9.4 (8.4-10.6) mg/dL POC Troponin I 0.01 (0.01-0.04) ng/ml Imaging Data CT scan - head: Attestation: I have reviewed the pertinent imaging results. My impression: Head CT shows no acute findings, Radiologist's impression: [place] [address] Diagnostic Imaging Report Patient: Malinda Putnam MR#: [id number] : 1950 Acct:[id number] Loc: ED Service Date: 12/27/[address]: Ordering Physician: Rufus Kingsley M.D. Date of Service: 12/27/24 Procedure(s): CT head/brain wo con Accession Number(s): [id number] cc: Gaby Collins M.D.; Rufus Kingsley M.D.~ For Patients: As a result of the 21st Century Cures Act, medical imaging exams and procedure reports are released immediately into your electronic medical record. You may view this report before your referring provider. If you have questions, please contact your health care provider. TECHNIQUE: Multiplanar CT examination of the head was performed without the use of intravenous contrast. INDICATION: Vertigo. COMPARISON: CT 08/01/2024. FINDINGS: No loss of cervantes-white differentiation to suggest recent territorial infarct. No intracranial hemorrhage, abnormal extra-axial fluid collection, hydrocephalus or midline shift. The ventricles and cerebral sulci are prominent in caliber, compatible with mild generalized parenchymal volume loss. There is patchy hypoattenuation of the supratentorial white matter diffusely, nonspecific but consistent with chronic microvascular ischemic changes. The basal cisterns are patent. Grossly unchanged atherosclerotic calcifications near the left MCA bifurcation. The paranasal sinuses and mastoid air cells remain clear. The orbits and calvarium are unremarkable. The cerebellar tonsils are normal position. IMPRESSION: 1. No acute intracranial findings. 2. Mild generalized parenchymal volume loss with chronic microvascular ischemic changes. Please note that all CT scans at this facility use dose modulation, iterative reconstruction, and/or weight-based dosing when appropriate to reduce radiation dose to as low as reasonably achievable. Dictated by Rambo Tyson MD @ 12/27/2024 5:30:46 PM (Electronically Signed) ECG Data Attestation: I personally reviewed and interpreted this ECG as follows: ECG interpretation date: 12/27/24 Prior ECG tracings: available for review Interpretation: EKG is reviewed, this shows normal sinus rhythm with a ventricular rate of 61 normal QRS and 96 milliseconds QT is 396 QTC is 398. No acute ST wave changes, and wearing review from old EKG seen from 08/01/20012023 there has been no changes. Assessment: Normal EKG Discharge Plan Discharge Clinical Impression: Spell of dizziness Patient Disposition: Home w/ Parent or Adult Condition: Improved Instructions: Vertigo (DC), Lightheadedness (ED), Dizziness (ED) Additional Instructions: Home rest reassurance given, return as needed, follow-up with primary care if ongoing signs and symptoms or back in the emergency room. Activity Level: Light activity Discharge Diet: Regular Prescriptions: No Action clopidogrel 75 mg tablet 75 mg PO DAILY acetaminophen 500 mg tablet 1,000 mg PO Q6-8H PRN aspirin 81 mg tablet,delayed release (DR/EC) 81 mg PO DAILY sennosides 8.6 mg tablet 4.3 mg PO DAILY PRN Rx Instructions: Hold if experiencing loose stools. multivitamin [Multiple Vitamins] Tablet 1 tab PO QAM pantoprazole 40 mg tablet,delayed release (DR/EC) 40 mg PO DAILY amlodipine 2.5 mg tablet 2.5 mg PO DAILY rosuvastatin 10 mg tablet 5 mg PO DAILY ihiwgu-jcdrpbtg-mruhvya 36,000-114,000- 180,000 unit capsule,delayed release(DR/EC) 3 cap PO TID Rx Instructions: AND ONE CAPSULE WITH SNACKS, NOT TO EXCEED 9 CAPS PER DAY. sodium chloride 1,000 mg tablet,soluble 1 mg PO BID ascorbic acid (vitamin C) 1,000 mg tablet 1 g PO DAILY doxycycline monohydrate 100 mg capsule 100 mg PO PRN sulfamethoxazole-trimethoprim 800-160 mg tablet 1 tab PO BID Qty: 14 0RF hydroxyurea 500 mg capsule 500 mg PO DAILY Patient Comments: TAKE 1 CAPSULE BY MOUTH ON SUNDAY, SUNDAY, SUNDAY; AND THEN 2 CAPSULES ON ALL OTHER DAYS. Follow Up/Referrals: Gaby Collins MD [Primary Care Provider] - Stand Alone [facility]
[2024-12-27 17:35] VITALS: PULSE 67; O2SAT 97
[2024-12-27 17:44] LABS: Basophils Absolute Auto 0.06 K/uL (0.00-0.30); Basophils Percent Auto 0.9 % (0.0-3.0); Eosinophils Percent Auto 1.5 % (0.0-7.0); Hematocrit 37.3 % (33.0-51.0); Hemoglobin* 12.2 gm/dL (12.0-16.0); Immature Granulocytes Abs Auto 0.03 K/uL (0.00-0.30); Immature Granulocytes Pct Auto 0.4 %; Lymphocytes Percent Auto 15.4 % (20-44); Mean Corpuscular HGB Conc 33 gm/dL (32-36); Mean Corpuscular Hemoglobin 33 pg (26-34); Mean Corpuscular Volume 101 fL (80-100); Monocytes Percent Auto 9.4 % (0.0-11.0); Neutrophils Percent Auto 72.4 % (42.0-72.0); Platelet Count* 349 K/uL (140-440); RDW Coefficient of Variation % 12.8 % (11.5-15.5); Red Blood Count 3.68 m/uL (4.00-5.20); White Blood Count* 6.69 K/uL (4.50-11.00)
[2024-12-27 17:45] VITALS: PULSE 66; O2SAT 96
[2024-12-27 17:46] LABS: Troponin, Point-of-Care* 0.01 ng/ml (0.01-0.04)
[2024-12-27 17:53] LABS: Slide Review Reflex No
[2024-12-27 18:00] VITALS: PULSE 68; O2SAT 96
[2024-12-27 18:01] VITALS: BP 155/75; PULSE 67; RESP 16; O2SAT 95
[2024-12-27 18:09] LABS: Chloride* 98 mmol/L (96-114); Sodium* 132 mmol/L (135-149)
[2024-12-27 18:12] LABS: Anion Gap 6 mEq/L (7-15); Blood Urea Nitrogen* 18 mg/dL (7-30); Calcium* 9.4 mg/dL (8.4-10.6); Carbon Dioxide* 28 mmol/L (20-32); Creatinine* 0.5 mg/dL (0.5-1.5); Est. Creatinine Clearance* 37.85; Estimated Glomerular Filt Rate 97 ml/min; Glucose* 76 mg/dL (60-115)
[2024-12-27 18:15] VITALS: PULSE 65; O2SAT 95
== END 2024-12-27 18:42 | disposition home or self-care (01) ==
PROVIDERS: Emergency Provider Family Medicine; PCP Family Medicine
DX: R42 Dizziness and giddiness (principal)
CPT/HCPCS: 36415; 70450; 80048; 84484; 85025; 93005; 99284